=== PATIENT | female | born 1945 | race Caucasian/White ===

== ENCOUNTER 2019-08-04 09:57 | Outpatient (RCR) | payer MEDICARE, SELFPAY ==
--- NOTE | 2019-08-04 10:44 | PTOPEVAL ---
Thank you for referring Sharon Gomes to [facility]. Please review, sign, date and return this plan of care ANEL. I agree with and certify that the following plan of care is medically necessary. Referring Physician Date Admitting Provider: Attending Provider: DENNISE Bingham Referring Provider: KATLIN Outpatient Evaluation Start: 08/04/19 09:55 Freq: Status: Active Protocol: Document 08/04/19 10:00 CHUY (Rec: 08/04/19 10:37 [facility] [id number]) Therapy Assessment Status Assessment Status Assessment Status Evaluation Outpatient Past Medical History Past Medical History Source of Past Medical History Patient Other Source of Past Medical History see patient intake form Evaluation Information Problem Diagnosis L trochanteric bursitis Onset 08/03/19 Subjective Information patient reports she has been Query Text:As Reported By Patient/ having bursitis in the L thigh Family for months. she reports she recently rl to the MD and had a cortizone injection and is feeling much better now. she reports she slept good last night. she reports she does a home exercise tape 3x a week. she reports she is hear to be shown a home exercise program. Prior Level of Function Comments Additional Prior Level of Function patient reports she has no Comments pain today. prior to her injection, she was having 8/10 pain that was increased with resting at the end of the day. she reports she also was having increased pain with sitting for extended periods of time. Pain Assessment Timing of Pain Assessment Timing of Pain Assessment Assessment Pain Scale Pain Scale Used Numeric (1 - 10) Self Report Pain Assessment Left Lateral Hip(s) Reported Pain Level 0 Greatest Pain Intensity 10 Pain Score Pain Score 0: Self Report Additional Pain Score Comments no pain since injection yesterday. Lower Extremity Range of Motion Hip Range of Motion Bilateral Hip Flexion Range of Motion - Active 120 Hip Extension Range of Motion - Active 15 Hip Medial Rotation - Active 35 Hip Lateral Rotation - Active 45 Lower Extremity Muscle Strength Testing Hip Strength Bilateral Hip Flexion Strength 4+ Good + Hip Extension Strength 4 Good Hip Abduction Strength
== END 2019-08-04 10:54 | disposition home or self-care (01) ==
LOC: CHSPT 09:57
PROVIDERS: PCP Internal Medicine; Visit Provider Physician Assistant Surgical
DX: M70.62 Trochanteric bursitis, left hip (principal)
CPT/HCPCS: 97110; 97161

== ENCOUNTER 2019-10-20 08:15 | Outpatient (CLI) | payer MEDICARE, SELFPAY ==
--- NOTE | ~2019-10-20 | DEXA_ITS ---
BMD(1) Young-Adult(2) Age-Matched(3) Region (g/cm2) T-score Z-score WHO Classification L1 0.887 -2.1 -0.4 Osteopenia L2 0.911 -2.5 -0.8 Osteoporosis L3 0.937 -2.2 -0.6 Osteopenia L4 1.079 -1.1 0.6 Osteopenia L1-L4 0.963 -1.9 -0.2 Osteopenia Trend: L1-L4 Change vs Change vs Measured Age BMD(1) Baseline Previous Date (years) (g/cm2) (%) (%) 10/20/2019 [age] 0.963 baseline - 1 - Statistically 68% of repeat scans fall within 1SD (+- 0.010 g/cm2 for AP Spine L1-L4) 2 - [place] (Combined NHANES (ages 20-30) / OB10 (ages 20-40)) AP Spine Reference Population (v112) 3 - Matched for Age, Weight (females 25-100 kg), Ethnic 11 - World Health Organization - Definition of Osteoporosis and Osteopenia for Women: Normal = T-score at or above -1.0 SD; Osteopenia = T-score between -1.0 and -2.5 SD; Osteoporosis = T-score at or below -2.5 SD; (WHO definitions only apply when a young healthy Women reference database is used to determine T-scores.) Printed: 10/20/2019 8:59:44 AM (13.60)76:3.00:50.00:12.0 0.00:10.50 0.60x1.05 21.3:%Fat=28.3% 0.00:0.00 0.00:0.00 Filename: [id number] Scan Mode: Standard;OneScan 37.0 OY LX Therapies [id number] BMD(1) Young-Adult(2,7) Age-Matched(3) Region (g/cm2) T-score Z-score WHO Classification Neck Left 0.710 -2.4 -0.6 Osteopenia Right 0.711 -2.3 -0.6 Osteopenia Mean 0.710 -2.4 -0.6 Osteopenia Difference 0.002 0.0 0.0 - Total Left 0.689 -2.5 -1.0 Osteoporosis Right 0.646 -2.9 -1.3 Osteoporosis Mean 0.667 -2.7 -1.2 Osteoporosis Difference 0.042 0.3 0.3 - Hip [place] Length Comparison (mm) (Right = 109.7 mm) (Mean = 104.2 mm) (Left = 108.2 mm) Trend: Total Mean Change vs Change vs Measured Age BMD(1) Baseline Previous Date (years) (g/cm2) (%) (%) 10/20/2019 74.0 0.667 baseline - 1 - Statistically 68% of repeat scans fall within 1SD (+- 0.010 g/cm2 for DualFemur Total) 2 - [place] (Combined NHANES (ages 20-30) / OB10 (ages 20-40)) Femur Reference Population (v112) 3 - Matched for Age, Weight (females 25-100 kg), Ethnic 7 - DualFemur Total T-score difference is 0.3. Asymmetry is None. 11 - World Health Organization - Definition of Osteoporosis and Osteopenia for Women: Normal = T-score at or above -1.0 SD; Osteopenia = T-score between -1.0 and -2.5 SD; Osteoporosis = T-score at or below -2.5 SD; (WHO definitions only apply when a young healthy Women reference database is used to determine T-scores.) Printed: 10/20/2019 8:59:44 AM (13.60); Filename: [id number]; Right Femur; 18.1:%Fat=33.8%; Neck Angle (deg)= 62; Scan Mode: Standard 37.0 uGy; Left Femur; 18.5:%Fat=31.5%; Neck Angle (deg)= 69; Scan Mode: Standard 37.0 uGy Squirro [id number] Dear Cha Leon, Your patient Sharon Gomes completed a BMD test on 10/20/2019 using the Squirro DXA System (analysis version: 13.60) manufactured by [employer]. The following summarizes the results of our evaluation. PATIENT BIOGRAPHICAL: Name: Sharon Gomes Date: 1945 Height: 63.0 in. Gender: Female Exam Date: 10/20/2019 Weight: 145.0 lbs. [employer]
--- NOTE | ~2019-10-20 | US_ITS ---
EXAMINATION: US carotid duplex BI DATE: 10/20/2019 09:37 INDICATION: Bilateral carotid bruit TECHNIQUE: Grayscale, color Doppler, and pulsed Doppler images of the cervical carotid arteries were obtained. The degree of vessel stenosis is placed in one of the following categories: normal, <50%, 5 0-69%, >=70% but less than near-occlusion, near-occlusion, or total occlusion. Note that percent sten osis relative to normal distal artery lumen diameter is indirectly measured from velocity measurement s as described by John, et al. Radiology 2003; 229:340-346. Notes: Normal: Peak systolic velocity <125 centimeters/sec and no plaque <50%. Peak systolic velocity <125 ( EDV <40; ICA/CCA PSV ratio <2.0; used these factors only a tandem lesions or low cardiac output or co ntralateral disease) 50-69 %: PSV 125-230 (EDV 40-100; ratio 2-4) >= 70% but less than near occlusion: PSV greater than 230 (EDV > 100; ratio> 4.0) Near Occlusion: PSV that is variable; markedly narrowed lumen Occlusion: Absent flow on color/spectral Doppler and no lumen on bustamante scale. COMPARISON: None. FINDINGS: RIGHT: The right common carotid artery (CCA) peak systolic velocity (PSV) is 79 cm/s. The right internal car otid artery (ICA) PSV is 85 cm/s. The right ICA end-diastolic velocity (EDV) is 31 cm/s. The right IC A/CCA PSV ratio is 1.1. The external carotid artery (ECA) PSV is 86 cm/s. There is antegrade flow in the right vertebral artery. LEFT: The left CCA PSV is 102 cm/s. The left ICA PSV is 82 cm/s. The left ICA EDV is 31 cm/s. The left ICA/ CCA PSV ratio is 0.8. The ECA PSV is 64 cm/s. There is antegrade flow in the left vertebral artery. IMPRESSION: 1. Less than 50% stenosis in the right internal carotid artery by sonographic criteria. 2. Less than 50% stenosis in the left internal carotid artery by sonographic criteria. Reviewed, dictated and finalized at location A. IMPRESSION: 1. Less than 50% stenosis in the right internal carotid artery by sonographic sarah schofield. 2. Less than 50% stenosis in the left internal carotid artery by sonographic bianca gomes.
== END 2019-10-20 08:16 | disposition home or self-care (01) ==
PROVIDERS: PCP Internal Medicine; Visit Provider Internal Medicine
DX: R09.89 Other specified symptoms and signs involving the circulatory and respiratory systems (principal); M81.0 Age-related osteoporosis without current pathological fracture
CPT/HCPCS: 77080; 93880

== ENCOUNTER → 2019-12-15 07:28 | Outpatient (CLI) | payer MEDICARE, SELFPAY ==
--- NOTE | ~2019-12-15 | MM_ITS ---
EXAMINATION: MM screening [facility] BI w sydni HISTORY: Screening mammogram TECHNIQUE: Craniocaudal and mediolateral oblique 3-D tomosynthesis images were obtained and synthetic 2-D images were generated. CAD analysis was submitted and interpreted. COMPARISON: 09/21/2018, 09/10/2017, 09/08/2016 BREAST PARENCHYMAL COMPOSITION: There are scattered areas of fibroglandular density. FINDINGS: Stable focal asymmetry is again noted in the upper outer quadrant of the right breast. Ther e is no evidence of suspicious mass, calcification, or architectural distortion to suggest malignancy in either breast. There has been no suspicious interval change. IMPRESSION: 1. No mammographic evidence of malignancy. 2. Recommend routine screening mammography in one year. BI-RADS Category 2: Benign finding(s). Reviewed, dictated and finalized at location A.
== END ==
PROVIDERS: Visit Provider Internal Medicine
DX: Z12.31 Encounter for screening mammogram for malignant neoplasm of breast (principal)
CPT/HCPCS: 77063; 77067

== ENCOUNTER 2019-12-27 14:50 | Outpatient (CLI) | payer MEDICARE, SELFPAY ==
--- NOTE | ~2019-12-27 | XR_ITS ---
XR ankle RT min 3V DATE: 12/27/2019 15:16 INDICATION: Right ankle pain, arthritis, effusion TECHNIQUE: 4 views COMPARISON: None FINDINGS: Osteopenia. No fracture or dislocation of the ankle or disruption of the ankle mortise. No periosteal reaction or bone destruction. Mild plantar and posterior calcaneal enthesopathy. IMPRESSION: Osteopenia LAD there and posterior calcaneal enthesopathy Reviewed, dictated and finalized at location A.
== END 2019-12-27 14:51 | disposition home or self-care (01) ==
LOC: CHSIMG 14:53
PROVIDERS: PCP Internal Medicine; Visit Provider Internal Medicine
DX: M13.871 Other specified arthritis, right ankle and foot (principal); M25.471 Effusion, right ankle
CPT/HCPCS: 73610

== ENCOUNTER 2020-03-07 09:00 | Outpatient (RCR) | payer MEDICARE, SELFPAY ==
--- NOTE | 2020-03-07 13:02 | OTOPEVAL ---
Thank you for referring Sharon Gomes to [facility].? The patient is scheduled to be seen for therapy? ____x/week for ___ weeks. Please review, sign, date and return this plan of care ANEL. I agree with and certify that the following plan of care is medically necessary. Referring Physician Date Admitting Provider: Attending Provider: Eduardo Borden, Referring Provider: *OT Outpatient Evaluation Start: 03/07/20 08:47 Freq: Status: Active Protocol: Document 03/07/20 08:[address] [facility] (Rec: 03/07/20 10:[address] [facility] [id number]) Therapy Assessment Status Assessment Status Assessment Status Evaluation Outpatient Past Medical History Musculoskeletal History Hx Arthritis Yes Evaluation Information Problem Diagnosis L hand pain Onset 01/19/20 Cause carpal tunnel Subjective Information Patient reports pain in the Query Text:As Reported By Patient/ left hand as well as numbness Family and tingling in the left hand, specifically in the thumb, index and middle fingers. Patient received a wrist cock- up splint yesterday and used it last night in which she reports improvement. She also received a cortisone shot yesterday. Patient reports that her three fingers start to tingle when she is curling her hair, talking on the phone , driving, blow drying hair, and especially in the middle of the night. Prior Level of Function Activity Level (Last 3 Months) Hand Dominance Right Activity of Daily Living Ability Independent Indoor/Home Mobility Independent Community Mobility Independent Stairs Ability Independent Functional Cognition (Planning, Shopping Independent , Taking Medications) Cooking Yes Cleaning Yes Laundry Yes Shopping Yes Driving Yes Home Setting Home Type House Living Situation With Spouse Mobility Assistive Devices (Used Last 3 None Months) Pain Assessment Timing of Pain Assessment Timing of Pain Assessment Assessment Pain Scale Pain Scale Used Numeric (1 - 10) Self Report Pain Assessment Left Hand(s) Reported Pain Level 6 Pain Description
== END 2020-03-09 09:48 | disposition home or self-care (01) ==
LOC: CHSOT 09:00
PROVIDERS: PCP Internal Medicine; Visit Provider Orthopaedic Surgery Hand Surgery
DX: M79.642 Pain in left hand (principal)
CPT/HCPCS: 97110; 97165

== ENCOUNTER → 2020-12-31 11:13 | Outpatient (CLI) | payer MEDICARE, SELFPAY ==
--- NOTE | ~2020-12-31 | MM_ITS ---
EXAMINATION: MM screening [facility] BI w sydni HISTORY: Screening TECHNIQUE: Craniocaudal and mediolateral oblique 3-D tomosynthesis images were obtained and synthetic 2-D images were generated. CAD analysis was submitted and interpreted. COMPARISON: Comparison to multiple prior studies sequentially, with oldest reviewed study dated 09/04. BREAST PARENCHYMAL COMPOSITION: There are scattered areas of fibroglandular density. FINDINGS: There is no evidence of suspicious mass, calcification, or architectural distortion to sugg est malignancy in either breast. There has been no suspicious interval change. IMPRESSION: 1. No mammographic evidence of malignancy. 2. Recommend routine screening mammography in one year. BI-RADS Category 1: Negative Reviewed, dictated and finalized at location A.
== END ==
PROVIDERS: PCP Internal Medicine; Visit Provider Nurse Practitioner Women's Health
DX: Z12.31 Encounter for screening mammogram for malignant neoplasm of breast (principal)
CPT/HCPCS: 77063; 77067

== ENCOUNTER 2021-03-06 13:48 | Outpatient (CLI) | payer MEDICARE, SELFPAY ==
[2021-03-06 14:46] LABS: SARS-CoV-2 RNA PCR Negative (Negative)
== END 2021-03-06 13:49 | disposition home or self-care (01) ==
LOC: CHSLAB 13:52
PROVIDERS: PCP Internal Medicine; Visit Provider Internal Medicine
DX: J00 Acute nasopharyngitis [common cold] (principal); Z20.822 Contact with and (suspected) exposure to COVID-19
CPT/HCPCS: C9803; U0003; U0005

== ENCOUNTER 2021-03-18 14:02 | Outpatient (CLI) | payer MEDICARE, SELFPAY ==
--- NOTE | ~2021-03-18 | XR_ITS ---
EXAMINATION: XR chest 2V DATE: 03/18/2021 14:33 INDICATION: Cough and wheezing TECHNIQUE: PA and lateral views of the chest were obtained. COMPARISON: Chest radiograph dated 02/13/2015 FINDINGS: Mild biapical pleural-parenchymal scarring. Unchanged small bulge along the posterior left hemidiaphr agm most likely either eventration or small Bochdalek hernia. Lungs otherwise clear with no other air space opacities, pulmonary edema, pleural effusion or pneumothorax. The cardiomediastinal silhouette is normal. Moderate thoracic spondylosis. IMPRESSION: 1. No acute cardiopulmonary disease. Reviewed, dictated and finalized at location A. 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
== END 2021-03-18 14:03 | disposition home or self-care (01) ==
LOC: CHSIMG 14:06
PROVIDERS: PCP Internal Medicine; Visit Provider Internal Medicine
DX: R05.9 Cough, unspecified (principal); R06.2 Wheezing
CPT/HCPCS: 71046

== ENCOUNTER 2021-04-18 10:06 | Outpatient (CLI) | payer MEDICARE, SELFPAY ==
[2021-04-18 12:18] LABS: SARS-CoV-2 RNA PCR Negative (Negative)
== END 2021-04-18 10:07 | disposition home or self-care (01) ==
PROVIDERS: PCP Internal Medicine; Visit Provider Internal Medicine
DX: Z20.822 Contact with and (suspected) exposure to COVID-19 (principal)
CPT/HCPCS: C9803; U0003; U0005

== ENCOUNTER 2021-10-14 16:10 | Outpatient (CLI) | payer MEDICARE, OTHER, SELFPAY ==
--- NOTE | ~2021-10-14 | XR_ITS ---
XR sacrum coccyx min 2V DATE: 10/14/2021 17:26 INDICATION: Fall. Lower back and coccygeal pain TECHNIQUE: AP, angled AP and lateral views COMPARISON: 10/07/2018 sacroiliac joints FINDINGS: There is osteopenia. No fracture or bone destruction of the sacrum or coccyx is evident. Normal alignment at the pubic sym physis and sacral iliac joints. Severe degenerative disc disease of the lumbar spine. IMPRESSION: No sacral or coccygeal fracture is detected Osteopenia Reviewed, dictated and finalized at location B.
--- NOTE | ~2021-10-14 | XR_ITS ---
XR lumbar spine 2-3V DATE: 10/14/2021 17:23 INDICATION: Fall. Lower back pain, especially coccyx area. TECHNIQUE: AP, lateral, coned lateral lumbosacral views COMPARISON: 10/07/2018 lumbar spine FINDINGS: There is osteopenia. There is mild thoracolumbar dextroscoliosis. There is degenerative spurring of the lower thoracic spine. There is moderately severe to severe degenerative degenerative disc disease throughout the lumbar and lumbosacral spine. No lumbar spine fracture or bone destruction is evident. The lumbar pedicles are intact. The sacroiliac joints are intact. IMPRESSION: Osteopenia Dextro scoliosis of thoracolumbar spine Moderately severe to severe degenerative disc disease No fracture Reviewed, dictated and finalized at location B.
== END 2021-10-14 16:11 | disposition home or self-care (01) ==
LOC: CHSIMG 16:12
PROVIDERS: PCP Internal Medicine; Visit Provider Internal Medicine
DX: S39.92XA Unspecified injury of lower back, initial encounter (principal)
CPT/HCPCS: 72100; 72220

== ENCOUNTER 2021-10-30 14:04 | Emergency (ER) | payer MEDICARE, OTHER, SELFPAY ==
--- NOTE | ~2021-10-30 | XR_ITS ---
EXAMINATION: XR chest 1V portable 10/30/2021 14:55 INDICATION: Cough, fever and shortness of breath. PROCEDURE: AP portable chest COMPARISON: 03/18/2021 FINDINGS: The lungs are clear. The cardiomediastinal silhouette is within normal limits. There are no pleural effusions. There is no pneumothorax suspected. IMPRESSION: 1: NO ACUTE CARDIOPULMONARY DISEASE. Reviewed, dictated and finalized at location A.
--- NOTE | 2021-10-30 14:22 | ED.NAVMDI ---
HPI - Nausea/Vomiting/Diarrhea General Chief complaint: Nausea/Vomiting/Diarrhea Stated complaint: headache,nausea,chills,fever Time Seen by Provider: 10/30/21 14:22 Source: patient History of Present Illness HPI Narrative: patient tested positive for COVID yesterday. She presents to the ER with -- nausea without any vomiting -- body ache -- fever the patient is COVID vaccinated and in addition received a booster dose MD elicited complaint: nausea Onset (ago): day(s) ( started yesterday) Associated nausea: Yes Exacerbating factors: none Relieving factors: none Related Data Home Medications Medication Instructions Recorded Confirmed pravastatin 10 mg tablet 1 tablet PO DAILY 10/30/21 10/30/21 Review of Systems Review of Systems: All systems reviewed & are unremarkable except as noted in HPI and below Constitutional: Constitutional: Reports as per HPI and Reports no additional constitutional complaints Eyes: Eyes: Reports as per HPI and Reports no additional eye complaints ENT: Reports system reviewed and no additional complaints, except as documented and Reports as per HPI Cardiovascular: Cardiovascular: Reports as per HPI and Reports no additional cardiovascular complaints Respiratory: Respiratory: Reports as per HPI and Reports no additional respiratory complaints Gastrointestinal: Gastrointestinal: Reports as per HPI, Reports no additional gastrointestinal complaints and Reports nausea Genitourinary: Genitourinary: Reports no additional female genitourinary complaints and Reports as per HPI Musculoskeletal: Musculoskeletal: Reports no additional musculoskeletal complaints and Reports as per HPI Integumentary/Breasts: Skin/Breast: Reports system reviewed and no additional complaints, except as docu and Reports as per HPI Neurologic: Reports system reviewed and no additional complaints, except as documented and Reports as per HPI Psychiatric: Psychiatric: Reports no additional psychiatric complaints and Reports as per HPI Endocrine: Endocrine: Reports no additional endocrine complaints and Reports as per HPI Hematologic/Lymphatic: Hematologic/Lymphatic: Reports no additional hematologic/lymphatic complaints and Reports as per HPI Allergic/Immunologic: Allergic/Immunologic: Reports no additional allergic/immunologic complaints and Reports as per HPI Exam Const: General: healthy appearing and no acute distress Orientation/consciousness: patient oriented x3 Limitations: no limitations HENMT: Head: normal to inspection Ears: external ears normal General nose exam: Normal external nose present Face and sinus: normal facial exam Mouth: Yes Normal oral and palatal mucosa present Teeth and gingiva: dentition normal Throat: posterior oropharynx normal Eyes: Conjunctivae: conjunctivae normal Cornea: corneas normal Pupils: Equal, round and reactive pupils present EOM: EOMs intact bilaterally Neck: Neck: normal visual inspection Chest: Chest palpation & inspection: normal inspection of the chest Resp: Effort & Inspection: normal respiratory effort Auscultation: clear to auscultation bilaterally Cardio: Rate: regular rate Rhythm: regular rhythm GI: GI Palp: Yes Soft to palpation Auscultation: normal bowel sounds : General: Yes no CVA tenderness Back/Spine/Pelvis: Back: no CVA tenderness Skin: General skin exam: normal color Rashes: no rashes Wounds: no wounds Neuro: General: patient oriented x3, moves all extremities, no meningeal signs, no focal motor deficits and CN's II-XI intact bilaterally Speech: normal speech Gait exam (Neuro): Normal gait present Extrem: General: normal to inspection and no clubbing, cyanosis or edema Psych: Mental Status: mental status grossly normal Affect: normal affect Attitude: cooperative Course Course Emergency Course: patient tested positive for COVID. In view of her age would give her Paxlovid Vital Signs Vital signs: Vital Signs Temperat
[2021-10-30 14:33] VITALS: BP 123/84; PULSE 81; RESP 20; TEMP 36.4; O2SAT 97
[2021-10-30 15:02] LABS: Basophils Absolute Auto 0.04 K/mm3 (0.00-0.10); Basophils Percent Auto 0.7 % (0.0-1.0); Eosinophils Absolute Auto 0.03 K/mm3 (0.02-0.50); Eosinophils Percent Auto 0.5 % (1.0-6.0); Hematocrit 39.2 % (35.0-42.0); Hemoglobin 12.3 g/dL (11.7-13.8); Immature Granulocyte Absolute 0.02 K/mm3 (0.00-0.00); Immature Granulocyte Percent A 0.3 % (0.0-0.0); Mean Corpuscular HGB Conc 31.4 g/dL (32.0-36.0); Mean Corpuscular Hemoglobin 25.5 pg (27.0-31.0); Mean Corpuscular Volume 81.3 fL (78.0-102.0); Mean Platelet Volume 9.4 fl (9.2-11.8); Monocytes Percent Auto 13.7 % (2.0-11.0); Neutrophils Absolute Auto 4.3 K/mm3 (1.7-7.2); Neutrophils Percent Auto 72.8 % (50.0-70.0); Platelet Count Result 195 K/mm3 (150-420); Red Blood Count 4.82 M/mm3 (4.20-5.40); Red Cell Distribution Width 14.3 % (11.6-14.4); White Blood Count 5.8 K/mm3 (4.8-10.8)
[2021-10-30 15:14] LABS: INR 1.1; Prothrombin Time 11.6 Seconds (9.50-12.10)
[2021-10-30 15:17] LABS: Alanine Aminotransferase 21 U/L (14-59); Albumin Level 3.3 g/dL (3.4-5.0); Alkaline Phosphatase 128 U/L (46-116); Anion Gap 9 mmol/L (8-16); Aspartate Amino Transferase 16 U/L (15-37); Bilirubin,Total 0.3 mg/dL (0.00-1.00); Blood Urea Nitrogen 14 mg/dL (7-18); Calcium 9.1 mg/dL (8.5-10.1); Carbon Dioxide 24 mmol/L (21-32); Chloride 105 mmol/L (98-108); Estimated CRCL calculation 39 ml/min; Estimated Glomerular Filt Rate 60; Glucose 111 mg/dL (70-99); Osmolality Calculated 287 mOsm/kg (285-295); Potassium 3.8 mmol/L (3.5-5.1); Sodium 138 mmol/L (136-145)
[2021-10-30 15:21] LABS: SARS-CoV-2 RNA PCR Positive (Negative)
[2021-10-30 15:23] LABS: Lactic Acid Reflex < 0.3 mmol/L (0.4-2.0)
[2021-10-30 15:33] LABS: Lipase 44 U/L (73-393); Troponin I 10.9 ng/L (0.00-60.4)
[2021-10-30 16:05] VITALS: BP 125/98; PULSE 80; RESP 20; TEMP 36.7; O2SAT 99
== END 2021-10-30 16:05 | disposition home or self-care (01) ==
PROVIDERS: Emergency Provider Internal Medicine Critical Care Medicine; PCP Internal Medicine
DX: U07.1 COVID-19 (principal)
CPT/HCPCS: 36415; 71045; 80053; 83605; 83690; 84484; 85025; 85610; 99284; C9803; U0003; U0005

== ENCOUNTER 2021-12-13 12:06 | Emergency (ER) | payer MEDICARE, OTHER, SELFPAY ==
--- NOTE | ~2021-12-13 | CT_ITS ---
EXAMINATION: CTA chest PE protocol DATE: 12/13/2021 13:12 INDICATION: Chest pain TECHNIQUE: Computed tomography angiography (CTA) of the chest was performed with 100 mL Omnipaque-350 intravenous contrast timed to evaluate the pulmonary arteries. Coronal maximum intensity projection 3D-reconstructions were created by the technologist. The dose-length product (DLP) was 206.85 mGy-cm. Automated exposure control and iterative reconstruction technique were employed. COMPARISON: None. FINDINGS: The pulmonary arteries are well-opacified. No pulmonary embolism is identified. There are dependent airspace opacities of the lower lobes. No pleural effusion or pneumothorax. There is a 2 mm nodule of the right lung apex. No pathologically enlarged thoracic lymph nodes are identified. The h eart size is normal. Calcified coronary artery atherosclerosis is noted. There is severe thoracic spo ndylosis. IMPRESSION: 1. No pulmonary embolus identified. 2. Dependent airspace opacities of the lower lobes, likely atelectasis. Reviewed, dictated and finalized at location B.
--- NOTE | ~2021-12-13 | XR_ITS ---
EXAMINATION: XR chest 2V DATE: 12/13/2021 12:26 INDICATION: Central chest pain. TECHNIQUE: Frontal and lateral views of the chest were obtained. COMPARISON: Chest single view 10/30/21, 03/18/21 FINDINGS: There is mild scarring at the lung apices. There is chronic blunting of left posterior cost ophrenic angle. No pleural effusion or pneumothorax. The heart size is normal. IMPRESSION: 1. Stable mild scarring at the lung apices. 2. Chronic blunting of left posterior costophrenic angle, consistent with scarring versus tiny pleura l effusion. Reviewed, dictated and finalized at location A. IMPRESSION: 1. Stable mild scarring at the lung apices. 2. Chronic blunting of left posterior costophrenic angle, consistent with scarr ing versus tiny pleural effusion.
[2021-12-13 12:06] VITALS: BP 174/109; PULSE 91; PULSE 94; RESP 18; TEMP 36.4; O2SAT 98
--- NOTE | 2021-12-13 12:10 | ED.CHESTPAIN ---
HPI - Chest Pain General Chief Complaint: Chest Pain Stated Complaint: CHEST PAIN FOR 2 DAYS Time Seen by Provider: 12/13/21 12:09 Source: patient and RN notes reviewed Mode of arrival: ambulatory Limitations: no limitations History of Present Illness MD complaint: chest discomfort Onset (ago): day(s) (2) Timing of current episode: constant Prior episodes: No Onset: during rest Pain location: substernal Pain radiation: left arm and back Severity: mild Quality: burning Relieving factors: nothing Exacerbating factors: nothing Associated symptoms: other (None) Risk Factors Coronary artery disease risk factors: hyperlipidemia Thoracic aortic dissection risk factors: none Related Data Home Medications Medication Instructions Recorded Confirmed pravastatin 10 mg tablet 1 tablet PO DAILY 10/30/21 12/13/21 omeprazole 40 mg BYMOUTH DAILY 12/13/21 12/13/21 Allergies Allergy/AdvReac Type Severity Reaction Status Date / Time ciprofloxacin [From Cipro] Allergy Unknown Verified 12/13/21 12:35 clarithromycin [From Biaxin] Allergy Unknown Verified 12/13/21 12:35 cyclobenzaprine Allergy Unknown Verified 12/13/21 12:35 [From Flexeril] dexamethasone Allergy Unknown Verified 12/13/21 12:35 levofloxacin [From Levaquin] Allergy Unknown Verified 12/13/21 12:35 naproxen [From Aleve] Allergy Unknown Verified 12/13/21 12:35 Penicillins Allergy Unknown Verified 12/13/21 12:35 ropinirole Allergy Unknown Verified 12/13/21 12:35 sulfamethoxazole Allergy Unknown Verified 12/13/21 12:35 [From Bactrim] trimethoprim [From Bactrim] Allergy Unknown Verified 12/13/21 12:35 Review of Systems Review of Systems: All systems reviewed & are unremarkable except as noted in HPI and below Constitutional: Constitutional: Denies excessive sweating Respiratory: Respiratory: Denies dyspnea Gastrointestinal: Gastrointestinal: Denies diarrhea and Denies vomiting Exam Const: General: healthy appearing, no acute distress and alert Nutritional Appearance: well nourished Orientation/consciousness: patient oriented x3 Limitations: no limitations HENMT: Head: normal to inspection Ears: external ears normal Face and sinus: normal facial exam Mouth: Yes moist mucous membranes Eyes: Conjunctivae: conjunctivae normal Pupils: Equal, round and reactive pupils present EOM: EOMs intact bilaterally Neck: Neck: normal visual inspection Chest: Chest palpation & inspection: normal inspection of the chest and no tenderness Resp: Effort & Inspection: normal respiratory effort Auscultation: clear to auscultation bilaterally Cardio: Rate: regular rate Rhythm: regular rhythm Heart sounds: no murmurs GI: GI Palp: Yes Soft to palpation and No Tenderness to palpation present (GI) Auscultation: normal bowel sounds Back/Spine/Pelvis: Cervical Spine: cervical ROM normal Thoracic/Lumbar Spine: thoraco-lumbar ROM normal Skin: General skin exam: normal color Rashes: no rashes Neuro: General: patient oriented x3, moves all extremities, no focal motor deficits and CN's II-XI intact bilaterally Speech: normal speech Gait exam (Neuro): Normal gait present Extrem: General: normal to inspection and no clubbing, cyanosis or edema Psych: Mental Status: mental status grossly normal Affect: normal affect Attitude: cooperative Course Course Emergency Course: I discussed the case with JERMAINE Laughlin hospitalist at [facility] who agreed for patient to be admitted for further evaluation at [place]. Vital Signs Vital signs: Vital Signs Temperature 36.4 C 12/13/21 12:06 Pulse Rate 94 12/13/21 12:06 Respiratory Rate 18 12/13/21 12:06 Blood Pressure 174/109 H 12/13/21 12:06 Pulse Oximetry 98 12/13/21 12:06 Oxygen Delivery Room Air 12/13/21 12:06 Temperature 36.4 C 12/13/21 14:34 Pulse Rate 76 12/13/21 14:34 Respiratory Rate 18 12/13/21 14:34 Blood Pressure 158/82 H 12/13/21 14:34 Pulse Oximetry 97 12/13/21 14:
--- NOTE | 2021-12-13 12:13 | ECG_ITS ---
Measurements Intervals [place] Rate: 78 P: 62 WV: 156 QRS: 32 QRSD: 81 T: 44 QT: 392 QTc: 447 Interpretive Statements SINUS RHYTHM NORMAL ELECTROCARDIOGRAM NO PREVIOUS ECG AVAILABLE FOR COMPARISON Electronically Signed On 12-13-2021 12:59:06 CDT by Gurwinder Fisher M.D.
[2021-12-13 12:33] LABS: Basophils Absolute Auto 0.05 K/mm3 (0.00-0.10); Basophils Percent Auto 0.9 % (0.0-1.0); Eosinophils Absolute Auto 0.38 K/mm3 (0.02-0.50); Eosinophils Percent Auto 6.8 % (1.0-6.0); Hematocrit 39.6 % (35.0-42.0); Hemoglobin 12.3 g/dL (11.7-13.8); Immature Granulocyte Absolute 0.02 K/mm3 (0.00-0.00); Immature Granulocyte Percent A 0.4 % (0.0-0.0); Lymphocytes Absolute Auto 1.27 K/mm3 (1.10-4.50); Lymphocytes Percent Auto 22.8 % (18.0-42.0); Mean Corpuscular HGB Conc 31.1 g/dL (32.0-36.0); Mean Corpuscular Hemoglobin 25.6 pg (27.0-31.0); Mean Corpuscular Volume 82.3 fL (78.0-102.0); Mean Platelet Volume 9.3 fl (9.2-11.8); Monocytes Absolute Auto 0.54 K/mm3 (0.10-0.90); Monocytes Percent Auto 9.7 % (2.0-11.0); Neutrophils Absolute Auto 3.3 K/mm3 (1.7-7.2); Neutrophils Percent Auto 59.4 % (50.0-70.0); Platelet Count Result 242 K/mm3 (150-420); Red Blood Count 4.81 M/mm3 (4.20-5.40); Red Cell Distribution Width 14.7 % (11.6-14.4); White Blood Count 5.6 K/mm3 (4.8-10.8)
[2021-12-13] MEDS: ASPIRIN 81 MG CHEWABLE TABLET 324 MG PO (12:39)
[2021-12-13 12:47] LABS: Prothrombin Time 11.2 Seconds (9.50-12.10)
--- NOTE | 2021-12-13 12:50 | PC.NURSE ---
Ddimer 0.6, erp notified.
[2021-12-13 12:51] LABS: Alanine Aminotransferase 23 U/L (14-59); Albumin Level 3.8 g/dL (3.4-5.0); Alkaline Phosphatase 122 U/L (46-116); Anion Gap 5 mmol/L (8-16); Aspartate Amino Transferase 21 U/L (15-37); Bilirubin,Total 0.4 mg/dL (0.00-1.00); Blood Urea Nitrogen 14 mg/dL (7-18); Calcium 9.5 mg/dL (8.5-10.1); Carbon Dioxide 28 mmol/L (21-32); Chloride 105 mmol/L (98-108); Estimated CRCL calculation 42 ml/min; Estimated Glomerular Filt Rate > 60; Glucose 95 mg/dL (70-99); Osmolality Calculated 286 mOsm/kg (285-295); Potassium 3.8 mmol/L (3.5-5.1); Sodium 138 mmol/L (136-145); Total Protein 7.4 g/dL (6.4-8.2); Troponin I 145.8 ng/L (0.00-60.4)
--- NOTE | 2021-12-13 12:51 | PC.NURSE ---
troponin 145.8. erp notified.
[2021-12-13 14:34] VITALS: BP 158/82; PULSE 76; RESP 18; TEMP 36.4; O2SAT 97
== END 2021-12-13 15:50 | disposition short-term general hospital (02) ==
PROVIDERS: Emergency Provider Emergency Medicine; PCP Internal Medicine
DX: R07.89 Other chest pain (principal); R79.9 Abnormal finding of blood chemistry, unspecified
CPT/HCPCS: 36415; 71046; 71275; 80053; 84484; 85025; 85380; 85610; 93005; 99285; A9270; Q9967

== ENCOUNTER 2021-12-13 17:19 | Inpatient (IN) | payer MEDICARE, OTHER, SELFPAY ==
--- NOTE | ~2021-12-13 | US_ITS ---
EXAMINATION: US venous doppler [facility] DATE: 12/14/2021 11:54 INDICATION: Chest pain TECHNIQUE: Jimenez scale images without and with compression and Doppler images of the bilateral lower e xtremity veins were obtained. COMPARISON: None FINDINGS: The right common femoral vein, profunda femoral vein, femoral vein, popliteal vein, peroneal trunk, p osterior tibial veins, and greater saphenous vein are patent. There is a 5.3 cm cyst of the right pop liteal fossa. The left common femoral vein, profunda femoral vein, femoral vein, popliteal vein, peroneal trunk, po sterior tibial veins, and greater saphenous vein are patent. IMPRESSION: 1. Patent bilateral lower extremity veins. No evidence of deep venous thrombosis. Reviewed, dictated and finalized at location A. IMPRESSION: 1. Patent bilateral lower extremity veins. No evidence of deep venous thrombosi s.
--- NOTE | 2021-12-13 16:35 | ADMGEN ---
This patient, Sharon Gomes, was admitted to IMU Room 204-01. Patient/family oriented to hospital policies and general routines including ID bracelet, bed and alarms, visiting hours, pain management, procedures, bathroom and other care routines, personal items, smoking policy, room service/diet, and visiting hours. Information on how to activate the Rapid Response Team has been discussed. Patient/Family are encouraged to report perceived risks to care and to ask questions if they do not understand what they are told or what they should do.
[2021-12-13 16:38] VITALS: BP 165/73; PULSE 80; RESP 16; TEMP 36.8; O2SAT 98
--- NOTE | 2021-12-13 16:48 | ECG_ITS ---
Measurements Intervals [place] Rate: 73 P: 63 IA: 168 QRS: 23 QRSD: 86 T: 24 QT: 396 QTc: 438 Interpretive Statements SINUS RHYTHM NONSPECIFIC ST ABNORMALITY BORDERLINE ECG Electronically Signed On 12-14-2021 9:58:20 CDT by Jose Spears M.D.
[2021-12-13 16:50] VITALS: BMI 24.6
[2021-12-13 17:13] LABS: Hematocrit 39.6 % (37.0-47.0); Hemoglobin 12.1 g/dL (12.0-15.0); Mean Corpuscular HGB Conc 30.6 g/dl (32-36); Mean Corpuscular Hemoglobin 25.3 pg (26-34); Mean Corpuscular Volume 82.8 fl (80-100); Mean Platelet Volume 9.5 fl (7.4-10.4); Platelet Count Result 234 k/mm3 (150-375); Red Blood Count 4.78 M/mm3 (4.2-5.4); Red Cell Distribution Width 15.2 % (11.5-14.5); White Blood Count 5.4 K/mm3 (4.5-10.0)
[2021-12-13 17:23] LABS: Alanine Aminotransferase 18 U/L (6-35); Alkaline Phosphatase 107 U/L (38-126); Anion Gap 10 mmol/L (8-16); Aspartate Amino Transferase 29 U/L (14-36); Bilirubin,Total 0.4 mg/dL (0.2-1.3); Blood Urea Nitrogen 13 mg/dL (7-17); Calcium 9.4 mg/dL (8.4-10.2); Carbon Dioxide 26 mmol/L (22-30); Chloride 103 mmol/L (98-107); Estimated CRCL calculation 44 ml/min; Estimated Glomerular Filt Rate > 60; Glucose 123 mg/dL (65-110); Magnesium 2.1 mg/dL (1.6-2.3); Phosphorus 3.5 mg/dL (2.5-4.5); Potassium 3.5 mmol/L (3.4-5.0); Sodium 139 mmol/L (137-145)
--- NOTE | 2021-12-13 17:24 | PM.IMHP ---
H&P: HPI History of Present Illness Date/Time: 12/13/21 17:24 Chief Complaint: chest pain Narrative: This is a 76 year old who has had no previous history of heart disease. The patient went to [facility] today because she was having chest pain on and off for 2 days. It was substernal to left arm and back. She rated it as burning and mild. The patient was given 3 baby aspirin today. Patient's EKG at [place] her heart rate was 78 she was a normal sinus rhythm. Repeat EKG here at the hospital also shows a sinus rhythm with a minimally depression ST. Her D-dimer was mildly elevated at 0.60. [place] troponin was reported as 145.8 per their measures. There normal ranges different from ours. CTA pulmonary at [place] was read as a following 1. No pulmonary embolus identified. 2. Dependent airspace opacities of the lower lobes, likely atelectasis. The patient is being admitted to observation status to IMU on 12/13/2021 date of service. Review of Systems Review of Systems: See HPI All systems reviewed & are unremarkable except as noted in HPI and below Constitutional: Constitutional: Reports as per HPI and Reports no additional constitutional complaints Eyes: Eyes: Reports as per HPI and Reports no additional eye complaints ENT: Reports system reviewed and no additional complaints, except as documented and Reports Normal hearing present Cardiovascular: Cardiovascular: Reports no additional cardiovascular complaints Respiratory: Respiratory: Reports no additional respiratory complaints and Reports no additional respiratory complaints Gastrointestinal: Gastrointestinal: Reports as per HPI and Reports no additional gastrointestinal complaints Musculoskeletal: Musculoskeletal: Reports no additional musculoskeletal complaints Integumentary/Breasts: Skin/Breast: Reports system reviewed and no additional complaints, except as docu and Reports as per HPI Neurologic: Reports system reviewed and no additional complaints, except as documented, Reports as per HPI and Reports Normal hearing present Psychiatric: Psychiatric: Reports no additional psychiatric complaints and Reports as per HPI Endocrine: Endocrine: Reports no additional endocrine complaints Hematologic/Lymphatic: Hematologic/Lymphatic: Reports no additional hematologic/lymphatic complaints Allergic/Immunologic: Allergic/Immunologic: Reports no additional allergic/immunologic complaints [facility] Past Medical History Medical History (Updated 12/13/21 @ 17:35 by Qian Thomas NP) Chronic GERD COVID-19 Surgical History Surgical History (Updated 12/13/21 @ 17:35 by Qian Thomas NP) H/O dilation and curettage History of back surgery Fusion of L4 and 5 History of cataract extraction Family History Family History (Updated 12/13/21 @ 17:36 by Qian Thomas NP) Father Cancer Mother Generalized anxiety disorder Social History Social History (Updated 12/13/21 @ 17:37 by Qian Thomas NP) Social History: The patient lives with her who has dementia. The patient takes care of her . She has 3 children. Her 3 children are the durable power litigation attorney for healthcare. 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 Patient used to smoke over 30 years ago. No alcohol marijuana or illicit drugs. Code status full code Smoking packs per day: 0.5 Smoking cigarettes per day: 10.0 Years smoked: 34 Smoking pack-years: 17.00 Smoking status: Former smoker Alcohol intake: never Substance use: never Spiritual care concerns: No Meds Home Medications and Allergies Home Medications Medication Instructions Recorded Confirmed Type pravastatin 10 mg tablet 1 tablet PO DAILY 10/30/21 12/13/21 History omeprazole 40 mg BYMOUTH DAILY 12/13/21 12/13/21 History Allergies Allergy/AdvReac Type Severity Reaction Status Date / Time ciprofloxacin [From Cipro] Allergy Unknown Verified 12/13/21 12:35 clarithromycin [From Biaxin] Ger
[2021-12-13 17:25] LABS: INR 1.1; Prothrombin Time 13.8 Seconds (11.1-14.7)
[2021-12-13 17:26] LABS: Partial Thromboplastin Time 30.1 SECONDS (22.3-36.8)
[2021-12-13 18:03] LABS: Troponin I 0.055 ng/mL (0.000-0.034)
[2021-12-13 20:00] VITALS: BP 137/74; PULSE 79; PULSE 92; RESP 16; TEMP 36.9; O2SAT 97
[2021-12-13] MEDS: PRAVASTATIN SODIUM 10 MG TABLET PO (20:40)
[2021-12-13 22:00] VITALS: PULSE 73
[2021-12-13 23:42] VITALS: BP 142/75; PULSE 80; RESP 12; TEMP 36.9; O2SAT 98
[2021-12-14] VITALS (14 sets, daily range): BP systolic 125–148; BP diastolic 66–89; PULSE 65–93; RESP 12–16; TEMP 36.4–37; O2SAT 98–100
--- NOTE | 2021-12-14 | ECHO_ITS ---
Patient Info Name: Sharon Zunigabharti Age: 76 years : 1945 Gender: Female Ht: 63 in Wt: 136 lbs BSA: 1.67 m2 HR: 69 bpm BP: 145 / 89 mmHg Heart Rhythm: Sinus Rhythm Exam Date: 12/14/2021 8:11 AM Exam Location: [facility] Patient Status: Inpatient Admit Date: 12/13/2021 Staff Ordering Physician: Qian Thomas NP Pharmaceutical Scientist: Frank Lopez RDCS Attending Provider: Darron Farrell DO Referring Physician: William COTTRELL; Exam Type: CA echo doppler color flow Study Info Indications - elevated troponin Complete two-dimensional, color flow and Doppler transthoracic echocardiogram is performed. Summary 1. Complete two-dimensional, color flow and Doppler transthoracic echocardiogram is performed. 2. Left ventricular chamber dimension is normal. 3. Left ventricular systolic function is normal, estimated at 60-65%. 4. There is mildly increased left ventricular wall thickness. 5. The left ventricular diastolic function is grade I diastolic dysfunction. 6. There is mild aortic valve regurgitation. 7. There is mild mitral valve regurgitation. 8. There is mild tricuspid valve regurgitation. 9. There is mild pulmonic regurgitation. Left Ventricle Left ventricular chamber dimension is normal. Left ventricular systolic function is normal, estimated at 60-65%. There is mildly increased left ventricular wall thickness. The left ventricular diastolic function is grade I diastolic dysfunction. Right Ventricle Right ventricular chamber dimension is normal. Right ventricular systolic function is normal. Left Atria Left atrial chamber dimension is normal. Right Atria Right atrial chamber dimension is normal. Atrial Septum Intact interatrial septum visualized by color flow imaging. Aortic Valve The aortic valve is trileaflet. There is mild aortic valve sclerosis. There is no aortic valve stenosis. There is mild aortic valve regurgitation. Pulmonic Valve The pulmonic valve is normal. There is no pulmonic valve stenosis. There is mild pulmonic regurgitation. Mitral Valve The mitral valve has normal leaflets. There is no mitral valve stenosis. There is mild mitral valve regurgitation. Tricuspid Valve The tricuspid valve leaflets are normal. There is no significant tricuspid valve stenosis. There is mild tricuspid valve regurgitation. Pericardium/Pleural The pericardium appears normal. There is no pericardial effusion. Inferior Vena Cava Normal inferior vena cava with >50% collapse upon inspiration consistent with normal right atrial pressure, 5 mmHg. Aorta The aortic root size at the sinus of Valsalva is normal. Left Ventricular Outflow Tract Name Value Normal LVOT 2D LVOT Diameter 2.0 cm LVOT Doppler LVOT Peak Gradient 3 mmHg LVOT Mean Gradient 2 mmHg LVOT VTI 20 cm LVOT VTI/AV VTI Ratio 0.8 LVOT Stroke Volume 61 ml LVOT CO 4.2 l/min LVOT CI
[2021-12-14 06:54] LABS: Basophils Absolute Auto 0.1 K/mm3 (0.0-0.1); Basophils Percent Auto 1.6 % (0.2-1.2); Eosinophils Absolute Auto 0.5 K/mm3 (0-0.3); Eosinophils Percent Auto 10.1 % (0-4.4); Hemoglobin 12.4 g/dL (12.0-15.0); Immature Granulocyte Absolute 0.02 K/mm3 (0.00-0.031); Immature Granulocyte Percent A 0.4 % (0-0.5); Lymphocytes Absolute Auto 1.21 K/mm3 (0.9-3.2); Lymphocytes Percent Auto 23.9 % (18.3-44.2); Mean Corpuscular HGB Conc 30.2 g/dl (32-36); Mean Corpuscular Hemoglobin 25.3 pg (26-34); Mean Corpuscular Volume 83.5 fl (80-100); Mean Platelet Volume 9.4 fl (7.4-10.4); Monocytes Absolute Auto 0.7 K/mm3 (0.1-0.6); Monocytes Percent Auto 13.4 % (2.6-8.5); Neutrophils Absolute Auto 2.6 K/mm3 (1.3-6.7); Neutrophils Percent Auto 50.6 % (45.5-73.1); Platelet Count Result 212 k/mm3 (150-375); Red Blood Count 4.91 M/mm3 (4.2-5.4); Red Cell Distribution Width 15.2 % (11.5-14.5); White Blood Count 5.1 K/mm3 (4.5-10.0)
[2021-12-14 07:15] LABS: Lactic Acid Reflex 0.7 mmol/L (0.7-2.0)
[2021-12-14 07:16] LABS: Alanine Aminotransferase 15 U/L (6-35); Albumin Level 3.9 g/dL (3.5-5.1); Alkaline Phosphatase 102 U/L (38-126); Anion Gap 7 mmol/L (8-16); Aspartate Amino Transferase 26 U/L (14-36); Bilirubin,Total 0.5 mg/dL (0.2-1.3); Blood Urea Nitrogen 16 mg/dL (7-17); Calcium 9.5 mg/dL (8.4-10.2); Carbon Dioxide 26 mmol/L (22-30); Chloride 103 mmol/L (98-107); Cholesterol 213 mg/dL (0-200); Estimated CRCL calculation 44 ml/min; Estimated Glomerular Filt Rate > 60; Glucose 95 mg/dL (65-110); HDL Direct 93 mg/dL; Lactate Dehydrogenase 182 U/L (120-246); Magnesium 2.2 mg/dL (1.6-2.3); Potassium 4.1 mmol/L (3.4-5.0); Sodium 136 mmol/L (137-145); Triglycerides 70 mg/dL (<150)
[2021-12-14 07:27] LABS: LDL Cholesterol Direct 88 mg/dL
[2021-12-14] MEDS: PANTOPRAZOLE 40 MG TABLET BY MOUTH ×2 (08:52→20:29)
[2021-12-14] MEDS: ENOXAPARIN 40 MG/0.4 ML SYRINGE SUB-Q (08:52)
[2021-12-14 09:32] LABS: Troponin I 0.069 ng/mL (0.000-0.034)
--- NOTE | 2021-12-14 12:49 | PM.IMPN ---
Progress Note: A&P Assessment and Plan (1) Atypical chest pain: Code(s): R07.89 - Other chest pain Status: Inactive Assessment and Plan: -continue to trend troponin -repeat EKG shows sinus rhythm -cardiology consult greatly be appreciated -echo has been ordered for tomorrow -Lexiscan ordered as the patient is not able to do a treadmill stress test due to her arthritis in her knees. (2) Elevated troponin I level: Code(s): R77.8 - Other specified abnormalities of plasma proteins Status: Inactive Assessment and Plan: -patient currently does not have any chest pain. -continue to trend. -cardiology has been consulted -stress test ordered Lexiscan (3) Chronic GERD: Code(s): K21.9 - Gastro-esophageal reflux disease without esophagitis Status: Acute Assessment and Plan: -continue omeprazole (4) Anxiety: Code(s): F41.9 - Anxiety disorder, unspecified Status: Acute Assessment and Plan: -the patient is anxious about leaving her at home with other family members as he has dementia. (5) Dyslipidemia: Code(s): E78.5 - Hyperlipidemia, unspecified Status: Acute Assessment and Plan: -check lipid panel -check liver enzymes -continue pravastatin Subjective Date/time seen: 12/14/21 12:49 No complaints Exam Const: General: cooperative, healthy appearing, comfortable, no acute distress, well developed, alert, awake and Physically active Nutritional Appearance: average body habitus and well nourished Orientation/consciousness: oriented to person, oriented to place, oriented to time and patient oriented x3 Limitations: no limitations HENMT: Head: normal to inspection, No palpable skull fracture present, normocephalic and atraumatic Ears: hearing grossly normal bilaterally, external ears normal and TM's normal bilaterally General nose exam: Normal external nose present and Normal nares present Eyes: General: appearance normal, both eyes and all related structures Alignment and Position: alignment normal Periorbital: periorbital findings normal Eyelids: eyelids normal Sclera: sclerae normal Pupils: Equal, round and reactive pupils present EOM: EOMs intact bilaterally Neck: Neck: normal visual inspection, full ROM, no lymphadenopathy, trachea midline and supple Chest: Chest palpation & inspection: normal inspection of the chest Resp: Effort & Inspection: normal respiratory effort Auscultation: clear to auscultation bilaterally Percussion: percussion normal Cardio: Palpation: normal PMI Rate: regular rate Rhythm: regular rhythm Heart sounds: S1 normal heart sound present and S2 normal heart sound present Peripheral pulses: Peripheral pulses 2+ throughout GI: Inspection: normal to inspection Auscultation: normal bowel sounds Rectal Exam: deferred Back/Spine/Pelvis: Cervical Spine: cervical ROM normal Skin: General skin exam: normal color Lesions: no lesions Rashes: no rashes Trauma: no lacerations or abrasions Wounds: no wounds Hair: normal Nails: normal Neuro: General: oriented to person, oriented to place, oriented to time and patient oriented x3 Cranial nerves: Yes Equal, round and reactive pupils present and Yes Normal hearing present Cognition (Neuro): normal cognition Speech: normal speech Gait exam (Neuro): Normal gait present Motor exam (neuro): 5/5 motor strength present throughout Sensory Exam: normal sensation Extrem: General: normal to inspection Right upper extremity: normal to inspection and shoulder/upper arm Left upper extremity: normal to inspection and shoulder/upper arm Right lower extremity: normal to inspection Left lower extremity: normal to inspection Psych: Appearance: grossly normal Mental Status: mental status grossly normal Speech and movement: Normal speech and movement present Affect: normal affect Attitude: cooperative Thought process: Normal thought process present Insight: Good
--- NOTE | 2021-12-14 15:19 | PM.CNCAR ---
Assessment and Plan Assessment and plan (1) Non-ST elevation myocardial infarction (NSTEMI): Code(s): I21.4 - Non-ST elevation (NSTEMI) myocardial infarction Status: Acute Assessment and Plan: I think that her chest pain is consistent with a non ST-elevation myocardial infarction to improved otherwise. Aspirin 81 mg p.o. daily be initiated. P.r.n. nitroglycerin. Enoxaparin 1 milligram/kilogram subQ q.12 hours. Will start low-dose metoprolol 12.5 mg p.o. b.i.d.. 2D echocardiogram Doppler will be ordered and reviewed. Pravastatin will be continued. She had at muscle aches and issues with other statins. Check lipid panel. Plan for coronary angiogram on Thursday. (2) Chronic GERD: Code(s): K21.9 - Gastro-esophageal reflux disease without esophagitis Status: Acute Assessment and Plan: On PPI (3) Dyslipidemia: Code(s): E78.5 - Hyperlipidemia, unspecified Status: Acute Assessment and Plan: Continue pravastatin (4) Chest pain: Code(s): R07.9 - Chest pain, unspecified Status: Acute Assessment and Plan: Related to ACS until proven otherwise. History of Present Illness History of Present Illness Consult date/time: 12/14/21 15:19 Requesting physician: Qian Garcia NP Consult reason: chest pain Reason For Visit: Chest Pain/Elevated Troponin Narrative: Date of service 12/14/2021 Ordering physician: Qian garcia Reason for consult: Chest pain, elevated troponins History: Patient is a 76-year-old female who has hyperlipidemia. She presented to [place] because of chest pain after talking to Dr. Leon. Patient was doing yd work whenever she developed epigastric and chest burning. Chest burning lasted about hour and improved after she rested. Later that night she had a more intense and severe episode of burning that radiated into the middle of her back. It lasted 1-2 hours. In retrospect, she states that she should have went to the ER that night but did not. She called her primary care provider and went to [place] ER. Troponins were elevated at that time she was transferred to [place] for further workup evaluation treatment. Troponins are minimally elevated and have up trended. She does states that yesterday loss she was doing some errands, she would develop discomfort with physical activity also. She denies associated symptoms of nausea, diaphoresis or shortness of breath. She denies any recent syncope, presyncope, paroxysmal nocturnal dyspnea, orthopnea, edema palpitations. Review of Systems Review of Systems: All systems reviewed & are unremarkable except as noted in HPI and below Constitutional: Constitutional: Denies body ache(s) Eyes: Eyes: Denies blurry vision ENT: Reports Normal hearing present Cardiovascular: Cardiovascular: Reports chest pain Respiratory: Respiratory: Denies chest congestion Gastrointestinal: Gastrointestinal: Denies abdominal pain Genitourinary: Genitourinary: Denies hematuria Musculoskeletal: Musculoskeletal: Denies back pain Integumentary/Breasts: Skin/Breast: Denies dry skin Neurologic: Denies Abnormal speech present Psychiatric: Psychiatric: Denies anxiety Endocrine: Endocrine: Denies excessive sweating Hematologic/Lymphatic: Hematologic/Lymphatic: Denies easy bleeding Allergic/Immunologic: Allergic/Immunologic: Denies GI upset with certain foods PMFSH Past Medical History Medical History (Updated 12/14/21 @ 15:25 by Jose Spears MD) Chest pain Chronic GERD COVID-19 Surgical History Surgical History H/O dilation and curettage History of back surgery Fusion of L4 and 5 History of cataract extraction Family History Family History Father Cancer Mother Generalized anxiety disorder Social History Social History (Reviewed 12/14/21 @ 15:22 by Colten
[2021-12-14] MEDS: ENOXAPARIN 60 MG/0.6 ML SYRINGE SUB-Q (18:21)
[2021-12-14] MEDS: PRAVASTATIN SODIUM 20 MG TABLET 40 MG PO (20:27)
[2021-12-14] MEDS: METOPROLOL TARTRATE 12.5 MG TABLET PO (20:29)
[2021-12-15] VITALS (18 sets, daily range): BP systolic 111–143; BP diastolic 50–82; PULSE 57–82; RESP 16–20; TEMP 36.6–36.9; O2SAT 97–100
[2021-12-15] MEDS: ENOXAPARIN 60 MG/0.6 ML SYRINGE SUB-Q ×2 (05:59→17:04)
[2021-12-15 08:41] LABS: Hematocrit 44.4 % (37.0-47.0); Hemoglobin 13.4 g/dL (12.0-15.0); Mean Corpuscular HGB Conc 30.2 g/dl (32-36); Mean Corpuscular Hemoglobin 25.5 pg (26-34); Mean Corpuscular Volume 84.4 fl (80-100); Mean Platelet Volume 9.3 fl (7.4-10.4); Platelet Count Result 251 k/mm3 (150-375); Red Blood Count 5.26 M/mm3 (4.2-5.4); White Blood Count 5.6 K/mm3 (4.5-10.0)
[2021-12-15 09:00] LABS: Alanine Aminotransferase 16 U/L (6-35); Albumin Level 4.1 g/dL (3.5-5.1); Alkaline Phosphatase 109 U/L (38-126); Anion Gap 8 mmol/L (8-16); Aspartate Amino Transferase 27 U/L (14-36); Bilirubin,Total 0.5 mg/dL (0.2-1.3); Blood Urea Nitrogen 18 mg/dL (7-17); Calcium 9.7 mg/dL (8.4-10.2); Carbon Dioxide 28 mmol/L (22-30); Chloride 103 mmol/L (98-107); Estimated CRCL calculation 44 ml/min; Estimated Glomerular Filt Rate > 60; Glucose 98 mg/dL (65-110); Potassium 4.3 mmol/L (3.4-5.0); Sodium 139 mmol/L (137-145)
[2021-12-15] MEDS: ASPIRIN 81 MG ENTERIC TABLET PO (10:02)
[2021-12-15] MEDS: PANTOPRAZOLE 40 MG TABLET BY MOUTH ×2 (10:02→20:36)
[2021-12-15] MEDS: METOPROLOL TARTRATE 12.5 MG TABLET PO ×2 (10:02→20:36)
--- NOTE | 2021-12-15 10:10 | PM.IMPN ---
Progress Note: A&P Assessment and Plan (1) Atypical chest pain: Code(s): R07.89 - Other chest pain Status: Inactive Assessment and Plan: -repeat EKG shows sinus rhythm -cardiology consult greatly be appreciated Planned heart catheterization per Cardiology (2) Elevated troponin I level: Code(s): R77.8 - Other specified abnormalities of plasma proteins Status: Inactive Assessment and Plan: -patient currently does not have any chest pain. -continue to trend. -cardiology has been consulted Plan for heart catheterization (3) Chronic GERD: Code(s): K21.9 - Gastro-esophageal reflux disease without esophagitis Status: Acute Assessment and Plan: -continue omeprazole (4) Anxiety: Code(s): F41.9 - Anxiety disorder, unspecified Status: Acute Assessment and Plan: -the patient is anxious about leaving her at home with other family members as he has dementia. (5) Dyslipidemia: Code(s): E78.5 - Hyperlipidemia, unspecified Status: Acute Assessment and Plan: -check lipid panel -check liver enzymes -continue pravastatin Subjective Date/time seen: 12/15/21 10:10 No complaints, no chest pain Exam Const: General: cooperative, healthy appearing, comfortable, no acute distress, well developed, alert, awake and Physically active Nutritional Appearance: average body habitus and well nourished Orientation/consciousness: oriented to person, oriented to place, oriented to time and patient oriented x3 Limitations: no limitations HENMT: Head: normal to inspection, No palpable skull fracture present, normocephalic and atraumatic Ears: hearing grossly normal bilaterally, external ears normal and TM's normal bilaterally General nose exam: Normal external nose present and Normal nares present Eyes: General: appearance normal, both eyes and all related structures Alignment and Position: alignment normal Periorbital: periorbital findings normal Eyelids: eyelids normal Sclera: sclerae normal Pupils: Equal, round and reactive pupils present EOM: EOMs intact bilaterally Neck: Neck: normal visual inspection, full ROM, no lymphadenopathy, trachea midline and supple Chest: Chest palpation & inspection: normal inspection of the chest Resp: Effort & Inspection: normal respiratory effort Auscultation: clear to auscultation bilaterally Percussion: percussion normal Cardio: Palpation: normal PMI Rate: regular rate Rhythm: regular rhythm Heart sounds: S1 normal heart sound present and S2 normal heart sound present Peripheral pulses: Peripheral pulses 2+ throughout GI: Inspection: normal to inspection Auscultation: normal bowel sounds Rectal Exam: deferred Back/Spine/Pelvis: Cervical Spine: cervical ROM normal Skin: General skin exam: normal color Lesions: no lesions Rashes: no rashes Trauma: no lacerations or abrasions Wounds: no wounds Hair: normal Nails: normal Neuro: General: oriented to person, oriented to place, oriented to time and patient oriented x3 Cranial nerves: Yes Equal, round and reactive pupils present and Yes Normal hearing present Cognition (Neuro): normal cognition Speech: normal speech Gait exam (Neuro): Normal gait present Motor exam (neuro): 5/5 motor strength present throughout Sensory Exam: normal sensation Extrem: General: normal to inspection Right upper extremity: normal to inspection and shoulder/upper arm Left upper extremity: normal to inspection and shoulder/upper arm Right lower extremity: normal to inspection Left lower extremity: normal to inspection Psych: Appearance: grossly normal Mental Status: mental status grossly normal Speech and movement: Normal speech and movement present Affect: normal affect Attitude: cooperative Thought process: Normal thought process present Insight: Good insight present (Psych) Judgement: Good judgement present (Psych) Objective Data Vital Signs Vital Signs:
--- NOTE | 2021-12-15 10:16 | PM.PNCARD ---
Progress Note: A&P Assessment and Plan (1) Non-ST elevation myocardial infarction (NSTEMI): Code(s): I21.4 - Non-ST elevation (NSTEMI) myocardial infarction Status: Acute Assessment and Plan: I think that her chest pain is consistent with a non ST-elevation myocardial infarction to improved otherwise. Continue aspirin, p.r.n. nitroglycerin, enoxaparin, metoprolol. NPO after midnight for coronary angiogram tomorrow. Will repeat an EKG today. I will DC enoxaparin after this evening's dose (2) Chronic GERD: Code(s): K21.9 - Gastro-esophageal reflux disease without esophagitis Status: Acute Assessment and Plan: On PPI (3) Dyslipidemia: Code(s): E78.5 - Hyperlipidemia, unspecified Status: Acute Assessment and Plan: Continue pravastatin (4) Chest pain: Code(s): R07.9 - Chest pain, unspecified Status: Acute Assessment and Plan: Related to ACS until proven otherwise. Subjective Date/time seen: 12/15/21 10:16 Interval history: 76-year-old presented to the hospital with chest pain and ruled in for myocardial infarction. Date of service 12/15/2021: Currently, pain free. No chest pain, shortness breath, syncope. Review of Systems Review of Systems: All systems reviewed & are unremarkable except as noted in HPI and below Constitutional: Constitutional: Denies body ache(s) and Denies excessive sweating Eyes: Eyes: Denies blurry vision ENT: Reports Normal hearing present Cardiovascular: Cardiovascular: Reports chest pain Respiratory: Respiratory: Denies chest congestion Gastrointestinal: Gastrointestinal: Denies abdominal pain Genitourinary: Genitourinary: Denies hematuria Musculoskeletal: Musculoskeletal: Denies back pain Integumentary/Breasts: Skin/Breast: Denies dry skin Neurologic: Reports Normal hearing present and Denies Abnormal speech present Psychiatric: Psychiatric: Denies anxiety Endocrine: Endocrine: Denies excessive sweating Hematologic/Lymphatic: Hematologic/Lymphatic: Denies easy bleeding Allergic/Immunologic: Allergic/Immunologic: Denies GI upset with certain foods Exam Narrative: Awake alert pleasant appears stated age Const: General: comfortable and no acute distress HENMT: General nose exam: Normal nares present Mouth: Yes moist mucous membranes Eyes: Sclera: sclerae normal EOM: EOMs intact bilaterally Neck: Neck: supple Thyroid: thyroid normal Carotids: no bruits Chest: Other: No reproducible chest wall pain to palpation Resp: Effort & Inspection: normal respiratory effort Auscultation: clear to auscultation bilaterally Cardio: Rate: regular rate Rhythm: regular rhythm GI: Inspection: non-distended Auscultation: normal bowel sounds Skin: General skin exam: normal color Neuro: Cranial nerves: Yes Normal hearing present Speech: normal speech and No Abnormal speech present Sensory Exam: normal sensation Extrem: General: normal to inspection Psych: Mental Status: mental status grossly normal Affect: normal affect Objective Data Vital Signs Vital Signs: Vital Signs - 24 hr 12/14/21 12:00 12/14/21 12:00 12/14/21 12:00 Temperature 37.0 C Pulse Rate 91 80 Respiratory Rate 16 Blood Pressure 148/74 H Pulse Oximetry 100 100 Oxygen Delivery Room Air 12/14/21 16:00 12/14/21 16:00 12/14/21 14:00 Temperature 36.4 C L Pulse Rate 74 81 Respiratory Rate 12 Blood Pressure 125/86 Pulse Oximetry 100 100 Oxygen Delivery Room Air 12/14/21 16:00 12/14/21 18:00 12/14/21 20:29 Temperature Pulse Rate 71 71 82 Respiratory Rate Blood Pressure Pulse Oximetry Oxygen Delivery 12/14/21 20:00 12/14/21 20:00 12/14/21 22:00 Temperature 36.6 C Pulse Rate 86 93 70 Respiratory Rate 12 Blood Pressure 144/75 H Pulse Oximetry 100 Oxygen Delivery 12/14/21 23:33 12/15/21 00:00 12/15/21 02:00 Temperature 36.4 C Pulse Rate 65
--- NOTE | 2021-12-15 10:20 | ECG_ITS ---
Measurements Intervals [place] Rate: 65 P: 52 MA: 169 QRS: 9 QRSD: 78 T: 23 QT: 413 QTc: 430 Interpretive Statements SINUS RHYTHM NORMAL ECG COMPARED TO ECG 12/13/2021 16:54:15 NO SIGNIFICANT CHANGES Electronically Signed On 12-15-2021 12:23:28 CDT by Jose Spears M.D.
[2021-12-15] MEDS: PRAVASTATIN SODIUM 20 MG TABLET 40 MG PO (20:36)
[2021-12-16] VITALS (26 sets, daily range): BP systolic 120–167; BP diastolic 60–99; PULSE 53–79; RESP 12–58; TEMP 36.2–36.7; O2SAT 97–100
[2021-12-16 05:05] LABS: Anion Gap 7 mmol/L (8-16); Blood Urea Nitrogen 19 mg/dL (7-17); Calcium 9.3 mg/dL (8.4-10.2); Carbon Dioxide 29 mmol/L (22-30); Chloride 103 mmol/L (98-107); Estimated CRCL calculation 36 ml/min; Estimated Glomerular Filt Rate 54; Glucose 93 mg/dL (65-110); Potassium 4.4 mmol/L (3.4-5.0); Sodium 139 mmol/L (137-145)
[2021-12-16] MEDS: METOPROLOL TARTRATE 12.5 MG TABLET PO ×2 (09:31→20:14)
[2021-12-16] MEDS: ASPIRIN 81 MG ENTERIC TABLET PO (09:32)
--- NOTE | 2021-12-16 09:40 | WPDMODSED ---
Moderate Sedation Note-Pt Data Patient Data Diagnosis: Chest pain Minimal troponin elevation Present Complaint: This is a 76-year-old patient with a history of dyslipidemia who experience some chest pain last week. After coming to the hospital troponin levels were found to be minimally elevated. Electrocardiogram looks normal and as does echocardiogram Procedure to be performed/Plan: Left heart catheterization Allergies Allergy/AdvReac Type Severity Reaction Status Date / Time ciprofloxacin [From Cipro] Allergy Unknown Verified 12/13/21 12:35 clarithromycin [From Biaxin] Allergy Unknown Verified 12/13/21 12:35 cyclobenzaprine Allergy Unknown Verified 12/13/21 12:35 [From Flexeril] dexamethasone Allergy Unknown Verified 12/13/21 12:35 levofloxacin [From Levaquin] Allergy Unknown Verified 12/13/21 12:35 naproxen [From Aleve] Allergy Unknown Verified 12/13/21 12:35 Penicillins Allergy Unknown Verified 12/13/21 12:35 ropinirole Allergy Unknown Verified 12/13/21 12:35 sulfamethoxazole Allergy Unknown Verified 12/13/21 12:35 [From Bactrim] trimethoprim [From Bactrim] Allergy Unknown Verified 12/13/21 12:35 Home Medications Medication Instructions Recorded Confirmed Type pravastatin 10 mg tablet 1 tablet PO DAILY 10/30/21 12/13/21 History omeprazole 40 mg BYMOUTH DAILY 12/13/21 12/13/21 History Current Medications: Active Medications Aspirin (Aspirin 81 Mg Enteric Tablet) 81 mg PO QAM [facility] Last Admin: 12/16/21 09:32 Dose: 81 mg Sodium Chloride (Normal Saline Iv) 500 mls @ 100 mls/hr IV CONT .Q5H [facility] Metoprolol Tartrate (Metoprolol Tartrate 12.5 Mg Tablet) 12.5 mg PO Q12HR [facility] Last Admin: 12/16/21 09:31 Dose: 12.5 mg Morphine Sulfate (Morphine Sulfate (*Crx) 2 Mg/Ml Inj) 2 mg IV PUSH Q4H PRN PRN Reason: Pain Rated 7-10 Ondansetron HCl (Ondansetron Inj 4 Mg/2 Ml Vial) 4 mg IV PUSH Q6H PRN PRN Reason: Nausea And Vomiting Pantoprazole Sodium (Pantoprazole 40 Mg Tablet) 40 mg BY MOUTH Q12HR [facility] Last Admin: 12/15/21 20:36 Dose: 40 mg Perflutren Lipid Microsphere (Perflutren Lipid Microspheres 1.5 Ml Vial Diluted To 10 Ml Total Volume) 0 ml IV PUSH ONCE PRN; Protocol PRN Reason: adequate visualization Pravastatin Sodium (Pravastatin Sodium 20 Mg Tablet) 40 mg PO HS ALBERTO Last Admin: 12/15/21 20:36 Dose: 40 mg Sedation/Anesthesia: No previous sedation/anesthesia problems (including family history). PMFSH Past Medical History Medical History (Updated 12/14/21 @ 15:25 by Jose Spears MD) Chest pain Chronic GERD COVID-19 Surgical History Surgical History H/O dilation and curettage History of back surgery Fusion of L4 and 5 History of cataract extraction Family History Family History Father Cancer Mother Generalized anxiety disorder Social History Social History Social History: The patient lives with her who has dementia. The patient takes care of her . She has 3 children. Her 3 children are the durable power patent attorney for healthcare. 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 Patient used to smoke over 30 years ago. No alcohol marijuana or illicit drugs. Code status full code Smoking packs per day: 0.5 Smoking cigarettes per day: 10.0 Years smoked: 34 Smoking pack-years: 17.00 Smoking status: Former smoker Alcohol intake: never Substance use: never Spiritual care concerns: No Mod Sed Physical Exam Physical Exam Pre Procedural Exam: Normal: Appearance, Neck, Throat, Airway, Lungs, Heart Size, Heart Rate, Heart Rhythm, Neuro Exam and Extremities Hours since solid foods: 12 Hours since liquid intake: 12 Mallampati Classification: class II Internal Medicine - PN: Obj Da Vital Signs Vital Signs: Vital Signs - 24 hr 12/15/21 10:02 12/15/21 12:00 12/15/21 10:00
--- NOTE | 2021-12-16 10:08 | P.PNIM_ITS ---
Progress Note: A&P Assessment and Plan (1) Atypical chest pain: Code(s): R07.89 - Other chest pain Status: Inactive Assessment and Plan: -repeat EKG shows sinus rhythm -cardiology consult greatly be appreciated Planned heart catheterization per Cardiology (2) Elevated troponin I level: Code(s): R77.8 - Other specified abnormalities of plasma proteins Status: Inactive Assessment and Plan: -patient currently does not have any chest pain. -continue to trend. -cardiology has been consulted Plan for heart catheterization (3) Chronic GERD: Code(s): K21.9 - Gastro-esophageal reflux disease without esophagitis Status: Acute Assessment and Plan: -continue omeprazole (4) Anxiety: Code(s): F41.9 - Anxiety disorder, unspecified Status: Acute Assessment and Plan: -the patient is anxious about leaving her at home with other family members as he has dementia. (5) Dyslipidemia: Code(s): E78.5 - Hyperlipidemia, unspecified Status: Acute Assessment and Plan: -check lipid panel -check liver enzymes -continue pravastatin Subjective Date/time seen: 12/16/21 10:08 No complaints Exam Const: General: cooperative, healthy appearing, comfortable, no acute distress, well developed, alert, awake and Physically active Nutritional Appearance: average body habitus and well nourished Orientation/consciousness: oriented to person, oriented to place, oriented to time and patient oriented x3 Limitations: no limitations HENMT: Head: normal to inspection, No palpable skull fracture present, normocephalic and atraumatic Ears: hearing grossly normal bilaterally, external ears normal and TM's normal bilaterally General nose exam: Normal external nose present and Normal nares present Eyes: General: appearance normal, both eyes and all related structures Alignment and Position: alignment normal Periorbital: periorbital findings normal Eyelids: eyelids normal Sclera: sclerae normal Pupils: Equal, round and reactive pupils present EOM: EOMs intact bilaterally Neck: Neck: normal visual inspection, full ROM, no lymphadenopathy, trachea midline and supple Chest: Chest palpation & inspection: normal inspection of the chest Resp: Effort & Inspection: normal respiratory effort Auscultation: clear to auscultation bilaterally Percussion: percussion normal Cardio: Palpation: normal PMI Rate: regular rate Rhythm: regular rhythm Heart sounds: S1 normal heart sound present and S2 normal heart sound present Peripheral pulses: Peripheral pulses 2+ throughout GI: Inspection: normal to inspection Auscultation: normal bowel sounds Rectal Exam: deferred Back/Spine/Pelvis: Cervical Spine: cervical ROM normal Skin: General skin exam: normal color Lesions: no lesions Rashes: no rashes Trauma: no lacerations or abrasions Wounds: no wounds Hair: normal Nails: normal Neuro: General: oriented to person, oriented to place, oriented to time and patient oriented x3 Cranial nerves: Yes Equal, round and reactive pupils present and Yes Normal hearing present Cognition (Neuro): normal cognition Speech: normal speech Gait exam (Neuro): Normal gait present Motor exam (neuro): 5/5 motor strength present throughout Sensory Exam: normal sensation Extrem: General: normal to inspection Right upper extremity: normal to inspection and shoulder/upper arm Left upper extremity: normal to inspection
--- NOTE | 2021-12-16 10:25 | WPDCARDPROC ---
Cardiac Cath Procedure Note Date of procedure:: 12/16/21 Performing physician:: Gurwinder Fisher MD Indication:: chest pain/elevated troponin Brief clinical history:: this is a 76-year-old woman without previous history of cardiac disease who had several episodes of chest discomfort last week. She came into the hospital over the weekend where her electrocardiogram was found to be unremarkable. Troponin levels are slightly out of normal range but are flat. In this setting angiography has been recommended. Procedure Procedure performed:: Left ventriculogram coronary angiogram Sedation/Medication given:: fentanyl 25 mg Versed 2 mg case start time 9:54 a.m. case end time 10:14 a.m. sedation provided by Yemi Covington RN, trained observer Access site:: right femoral artery Estimated blood loss:: 20 cc Procedure note:: patient was brought to the cardiac catheterization lab in the postabsorptive state where the right femoral triangle was prepared and draped in the usual fashion. Anesthesia was given with 1% lidocaine infiltrated locally. Using modified Seldinger technique a 5 [place] sheath was placed into the femoral artery. After this left heart catheterization was carried out. A 5 [place] angled pigtail catheter was used to measure left-sided hemodynamics and to inject the left ventriculogram in the LARA projection. Following this the left coronary artery was engaged and injected using a 5 [place] FL4 catheter. A 5 [place] JR4 catheter was used to engage and inject the right coronary artery. The cineangiograms were then reviewed and the case was terminated. The patient was taken to the holding area for manual sheath removal. There were no apparent procedural complications and there was no sign of a groin hematoma upon leaving the cath lab nurse. Findings:: Hemodynamics: Central aortic pressure is 150/0 end-diastolic pressure 8. left ventricle was 150/0 end-diastolic pressure 10. There is no significant gradient on pullback across the aortic valve. Left ventricle: The LV is normal in size all segments contract appropriately the global ejection fraction is visually estimated to be 60-65% with no regional wall motion abnormalities. The left main coronary artery is medium in caliber and patent the left anterior descending is a medium caliber artery extending down to and around the apex. There is a area of aneurysmal dilatation in the proximal 3rd of the LAD. In the midportion of the artery there is a eccentric stenosis of 70-80% distal to the area of aneurysmal dilatation. There was RUDY 3 flow in the LAD. Circumflex is a moderate caliber vessel giving rise to marginal branches. The largest OM branch which is OM 2 has a discrete 80% stenosis. In the WOLOF cranial projection this appears to be a 90% stenosis. The right coronary artery is medium in caliber and dominant to the posterior circulation. There is a 95% ostial right coronary artery stenosis. The trunk of the RCA between the 2nd and 3rd portions has mild 30-40% stenosis. The RPDA and RPL branches are free of significant disease but are relatively small. Conclusion:: 1. right coronary artery dominant circulation with evidence of 3 vessel coronary artery disease as described above 2. culprit lesion for the presentation appears to be the high-grade 95% ostial RCA stenosis described above 3. 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 4. 80-90% stenosis in the OM 2 which is the largest marginal branch in this patient 5. nicely preserved left ventricular systolic contractility Gurwinder Fisher MD [facility]
[2021-12-16] MEDS: SODIUM CHLORIDE 0.9% IV 1,000 ML 125 ML IV CONT (14:12)
[2021-12-16] MEDS: ONDANSETRON INJ 4 MG/2 ML VIAL IV PUSH (14:14)
[2021-12-16] MEDS: PANTOPRAZOLE 40 MG TABLET BY MOUTH (18:01)
[2021-12-16] MEDS: PRAVASTATIN SODIUM 20 MG TABLET 40 MG PO (20:14)
[2021-12-17] VITALS (11 sets, daily range): BP systolic 89–127; BP diastolic 61–70; PULSE 55–73; RESP 12–18; TEMP 36.3–36.5; O2SAT 98–100
[2021-12-17] MEDS: METOPROLOL TARTRATE 12.5 MG TABLET PO (08:31)
[2021-12-17] MEDS: PANTOPRAZOLE 40 MG TABLET BY MOUTH (08:31)
--- NOTE | 2021-12-17 08:31 | PM.PNCARD ---
Progress Note: A&P Assessment and Plan (1) Non-ST elevation myocardial infarction (NSTEMI): Code(s): I21.4 - Non-ST elevation (NSTEMI) myocardial infarction Status: Acute Assessment and Plan: Coronary angiogram yesterday revealed 3 vessel coronary artery disease with findings described below: the left anterior descending is a medium caliber artery extending down to and around the apex. There is a area of aneurysmal dilatation in the proximal 3rd of the LAD. In the midportion of the artery there is a eccentric stenosis of 70-80% distal to the area of aneurysmal dilatation. There was RUDY 3 flow in the LAD. Circumflex is a moderate caliber vessel giving rise to marginal branches. The largest OM branch which is OM 2 has a discrete 80% stenosis. In the JAKUB cranial projection this appears to be a 90% stenosis. The right coronary artery is medium in caliber and dominant to the posterior circulation. There is a 95% ostial right coronary artery stenosis. The trunk of the RCA between the 2nd and 3rd portions has mild 30-40% stenosis. The RPDA and RPL branches are free of significant disease but are relatively small. Recommendation is for outpatient referral to [facility] for consideration for CABG vs. high risk PCI. Continue ASA, statin, Imdur (2) Chronic GERD: Code(s): K21.9 - Gastro-esophageal reflux disease without esophagitis Status: Acute Assessment and Plan: On PPI (3) Dyslipidemia: Code(s): E78.5 - Hyperlipidemia, unspecified Status: Acute Assessment and Plan: Continue pravastatin (4) Chest pain: Code(s): R07.9 - Chest pain, unspecified Status: Acute Assessment and Plan: Related to ACS. Subjective Date/time seen: 12/17/21 08:31 Interval history: 76-year-old presented to the hospital with chest pain and ruled in for myocardial infarction. Date of service 12/15/2021: Currently, pain free. No chest pain, shortness breath, syncope. Date of service 12/17/2021: Sitting up in the chair at the bedside. Denying any chest pain, shortness of breath, palpitations. She has ambulated around her room and feels fine with that. Eager to go home. Review of Systems Review of Systems: All systems reviewed & are unremarkable except as noted in HPI and below Constitutional: Constitutional: Denies body ache(s) and Denies excessive sweating Eyes: Eyes: Denies blurry vision ENT: Reports Normal hearing present Cardiovascular: Cardiovascular: Reports chest pain Respiratory: Respiratory: Denies chest congestion Gastrointestinal: Gastrointestinal: Denies abdominal pain Genitourinary: Genitourinary: Denies hematuria Musculoskeletal: Musculoskeletal: Denies back pain Integumentary/Breasts: Skin/Breast: Denies dry skin Neurologic: Reports Normal hearing present and Denies Abnormal speech present Psychiatric: Psychiatric: Denies anxiety Endocrine: Endocrine: Denies excessive sweating Hematologic/Lymphatic: Hematologic/Lymphatic: Denies easy bleeding Allergic/Immunologic: Allergic/Immunologic: Denies GI upset with certain foods Exam Narrative: Awake alert pleasant appears stated age Const: General: comfortable and no acute distress HENMT: General nose exam: Normal nares present Mouth: Yes moist mucous membranes Eyes: Sclera: sclerae normal EOM: EOMs intact bilaterally Neck: Neck: supple Thyroid: thyroid normal Carotids: no bruits Chest: Other: No reproducible chest wall pain to palpation Resp: Effort & Inspection: normal respiratory effort Auscultation: clear to auscultation bilaterally Cardio: Rate: regular rate Rhythm: regular rhythm GI: Inspection: non-distended Auscultation: normal bowel sounds Skin: General skin exam: normal color Other: Right groin arterial access site free from hematoma, ecchymosis, bruit. Neuro: Cranial nerves: Yes Normal hearing present Speech: normal speech and No Abnormal speech present
[2021-12-17] MEDS: ASPIRIN 81 MG ENTERIC TABLET PO (08:32)
[2021-12-17] MEDS: ISOSORBIDE MONONITRATE 30 MG TAB.ER.24H PO (08:32)
--- NOTE | 2021-12-17 12:01 | PM.DS ---
DS: Admitting Diagnosis Discharge Date December 17, 2021 Admitting Diagnosis cp, cad DS: Discharge Diagnosis Discharge Diagnosis (1) Atypical chest pain: Code(s): R07.89 - Other chest pain Status: Inactive Assessment and Plan: Status post left heart catheterization. Multi-vessel disease. Will need to follow up in [place] for staged PCI versus CABG. (2) Elevated troponin I level: Code(s): R77.8 - Other specified abnormalities of plasma proteins Status: Inactive Assessment and Plan: See plan above (3) Chronic GERD: Code(s): K21.9 - Gastro-esophageal reflux disease without esophagitis Status: Acute Assessment and Plan: -continue omeprazole (4) Anxiety: Code(s): F41.9 - Anxiety disorder, unspecified Status: Acute Assessment and Plan: -the patient is anxious about leaving her at home with other family members as he has dementia. (5) Dyslipidemia: Code(s): E78.5 - Hyperlipidemia, unspecified Status: Acute Assessment and Plan: -check lipid panel -check liver enzymes -continue pravastatin DS: Summary Hospital Course Hospital Course: Patient was admitted for chest pain found have mildly elevated troponin. She did go to the cardiac cath lab technologist have left heart catheterization. She has multi-vessel disease she will need to follow up in [place] for evaluation for possible CABG versus staged PCI. Time Spent with Patient Time attestation: Total time spent providing and/or coordinating discharge services: Exam Const: General: cooperative, healthy appearing, comfortable, no acute distress, well developed, alert, awake and Physically active Nutritional Appearance: average body habitus and well nourished Orientation/consciousness: oriented to person, oriented to place, oriented to time and patient oriented x3 Limitations: no limitations HENMT: Head: normal to inspection, No palpable skull fracture present, normocephalic and atraumatic Ears: hearing grossly normal bilaterally, external ears normal and TM's normal bilaterally General nose exam: Normal external nose present and Normal nares present Eyes: General: appearance normal, both eyes and all related structures Alignment and Position: alignment normal Periorbital: periorbital findings normal Eyelids: eyelids normal Sclera: sclerae normal Pupils: Equal, round and reactive pupils present EOM: EOMs intact bilaterally Neck: Neck: normal visual inspection, full ROM, no lymphadenopathy, trachea midline and supple Chest: Chest palpation & inspection: normal inspection of the chest Resp: Effort & Inspection: normal respiratory effort Auscultation: clear to auscultation bilaterally Percussion: percussion normal Cardio: Palpation: normal PMI Rate: regular rate Rhythm: regular rhythm Heart sounds: S1 normal heart sound present and S2 normal heart sound present Peripheral pulses: Peripheral pulses 2+ throughout GI: Inspection: normal to inspection Auscultation: normal bowel sounds Rectal Exam: deferred Back/Spine/Pelvis: Cervical Spine: cervical ROM normal Skin: General skin exam: normal color Lesions: no lesions Rashes: no rashes Trauma: no lacerations or abrasions Wounds: no wounds Hair: normal Nails: normal Neuro: General: oriented to person, oriented to place, oriented to time and patient oriented x3 Cranial nerves: Yes Equal, round and reactive pupils present and Yes Normal hearing present Cognition (Neuro): normal cognition Speech: normal speech Gait exam (Neuro): Normal gait present Motor exam (neuro): 5/5 motor strength present throughout Sensory Exam: normal sensation Extrem: General: normal to inspection Right upper extremity: normal to inspection and shoulder/upper arm Left upper extremity: normal to inspection and shoulder/upper arm Right lower extremity: normal to inspection Left lower extremity: normal to inspection Psych: Appearance: grossly n
--- NOTE | 2021-12-17 12:16 | PC.NURSE ---
Notified Claudia Cardona NP of decreased BP after morning medication administer. Pt is asymptomatic with BP of 89/61 in Right arm and 89/57 in left arm. New order for 250ml bolus IVPB x1. Recheck BP in 2 hours after bolus has infused and notify [facility] with BP measurements.
[2021-12-17] MEDS: SODIUM CHLORIDE 0.9% IV 250 ML 999 ML IV CONT (12:56)
== END 2021-12-17 16:04 | disposition home or self-care (01) | DRG 282 ==
PROVIDERS: Nurse Practitioner; Specialist; Admitting Provider Internal Medicine; PCP Internal Medicine; Visit Provider Chiropractor
PROC: 4A023N7 Measurement of Cardiac Sampling and Pressure, Left Heart, Percutaneous Approach (ICD-10-PCS; CPT 93452; principal; 2021-12-16 11:30)
DX: I21.4 Non-ST elevation (NSTEMI) myocardial infarction (principal); R77.8 Other specified abnormalities of plasma proteins; K21.9 Gastro-esophageal reflux disease without esophagitis; E78.5 Hyperlipidemia, unspecified; F41.9 Anxiety disorder, unspecified; Z87.891 Personal history of nicotine dependence
CPT/HCPCS: 36415; 80048; 80053; 80061; 83605; 83615; 83735; 84100; 84443; 84484; 85025; 85027; 85610; 85730; 93005; 93306; 93458; 93970; 96372; A9270; C1887; C1894; G0378; G0379; J1644; J1650; J2250; J2405; J3010; J7030; J7040; J7050

== ENCOUNTER 2021-12-27 18:50 | Inpatient (IN) | payer MEDICARE, OTHER, SELFPAY ==
[2021-12-27] VITALS (13 sets, daily range): BP systolic 145–206; BP diastolic 83–108; PULSE 71–89; RESP 14–20; TEMP 36.3–36.8; O2SAT 92–100; BMI 25.7
--- NOTE | ~2021-12-27 | CT_ITS ---
EXAMINATION: CT abdomen pelvis w con DATE: 12/30/2021 10:07 INDICATION: Retroperitoneal hemorrhage. TECHNIQUE: Computed tomography (CT) of the abdomen and pelvis was performed with 100 mL Omnipaque 350 intravenous contrast. Automated exposure control and iterative reconstruction technique were employe d. The dose-length product was 339.07 mGy-cm. COMPARISON: CT abdomen and pelvis 04/16/2005 FINDINGS: The visualized portions of the lung bases demonstrate mild atelectasis and mild bronchiecta sis. There are small pleural effusions, left worse than right. The heart size is normal. No pericardi al effusion. The liver, gallbladder, spleen, pancreas, adrenal glands, and kidneys are normal. There are no dilated loops of bowel. The appendix is normal. There is calcified atherosclerosis of the aort a and many of the other arteries. There is a 2.0 x 0.9 cm pseudoaneurysm of right common femoral kul[place] ry with surrounding small hematoma. There are no pathologically enlarged lymph nodes. There is no rosalia e intraperitoneal fluid. There is severe thoracolumbar spondylosis. There is dextroscoliosis of thora cic lumbar spine. IMPRESSION: 1. Small pseudoaneurysm of right common femoral artery. 2. Small pleural effusions. Reviewed, dictated and finalized at location A.
--- NOTE | ~2021-12-27 | US_ITS ---
EXAMINATION: US arterial duplex LE RT DATE: 12/31/2021 12:40 INDICATION: Postprocedural hemorrhage of a circulatory organ or structure following a cardiac cathete r, bypass, or other circulatory system procedure. Right common femoral artery pseudoaneurysm. TECHNIQUE: Multiple grayscale and Doppler ultrasound images of the right lower limb were obtained. COMPARISON: CT 12/30/2021 FINDINGS: There is a small hematoma superficial to right common femoral artery. No pseudoaneurysm. Th ere is no significant stenosis of right common femoral artery, superficial femoral artery, or deep fe moral artery. Right common femoral vein and femoral vein are patent. There is a large right-sided Gavi er's cyst. IMPRESSION: 1. No pseudoaneurysm. 2. Large right-sided Quintero's cyst. Reviewed, dictated and finalized at location A.
--- NOTE | 2021-12-27 19:00 | ECG_ITS ---
Measurements Intervals [place] Rate: 86 P: 35 CT: 158 QRS: 20 QRSD: 81 T: 87 QT: 370 QTc: 444 Interpretive Statements SINUS RHYTHM INFERIOR ST ELEVATION MYOCARDIAL INFARCT- ACUTE RECIPROCAL ST DEPRESSION IN HIGH LATERAL LEADS ANTEROLATERAL ST ELEVATION- CONSIDER ACUTE INJURY BASELINE ARTIFACT- I, III, AVL, V2 ABNORMAL ECG COMPARED TO ECG 12/15/2021 11:07:[address] ELEVATION MYOCARDIAL INFARCT- ACUTE NOW PRESENT RECIPROCAL ST DEPRESSION IN HIGH LATERAL LEADS NOW PRESENT ANTEROLATERAL ST ELEVATION- CONSIDER ACUTE INJURY NOW PRESENT Electronically Signed On 12-27-2021 20:51:09 CDT by Yoni Escobar D.O.
[2021-12-27] MEDS: HEPARIN SOD/D5W 100 UNITS/ML 25,000 UNITS/250 ML BAG 7 UNITS IV CONT (19:16)
--- NOTE | 2021-12-27 19:16 | ED.CHESTPAIN ---
HPI - Chest Pain General Chief Complaint: Chest Pain Stated Complaint: CP; STEMI CALLED IN FIELD Time Seen by Provider: 12/27/21 19:01 Source: patient, family and EMS Mode of arrival: EMS Limitations: no limitations History of Present Illness HPI narrative: 76 years old white female came to the ED by ambulance complaining of sudden onset of retrosternal burning sensation radiating to left upper chest while eating, similar to her previous history of chest pain prior to stent placement December 15 patient is status post 5 stent placement at [facility] 3 days ago. Currently patient on aspirin and Brilinta. Related Data Allergies Allergy/AdvReac Type Severity Reaction Status Date / Time ciprofloxacin [From Cipro] Allergy Unknown Verified 12/13/21 12:35 clarithromycin [From Biaxin] Allergy Unknown Verified 12/13/21 12:35 cyclobenzaprine Allergy Unknown Verified 12/13/21 12:35 [From Flexeril] dexamethasone Allergy Unknown Verified 12/13/21 12:35 levofloxacin [From Levaquin] Allergy Unknown Verified 12/13/21 12:35 naproxen [From Aleve] Allergy Unknown Verified 12/13/21 12:35 Penicillins Allergy Unknown Verified 12/13/21 12:35 ropinirole Allergy Unknown Verified 12/13/21 12:35 sulfamethoxazole Allergy Unknown Verified 12/13/21 12:35 [From Bactrim] trimethoprim [From Bactrim] Allergy Unknown Verified 12/13/21 12:35 Review of Systems Review of Systems: All systems reviewed & are unremarkable except as noted in HPI and below PMFSH Past Medical History Medical History Chest pain Chronic GERD COVID-19 Surgical History Surgical History H/O dilation and curettage History of back surgery Fusion of L4 and 5 History of cataract extraction Family History Family History Father Cancer Mother Generalized anxiety disorder Social History Social History Social History: The patient lives with her who has dementia. The patient takes care of her . She has 3 children. Her 3 children are the durable power sports attorney for healthcare. 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 Patient used to smoke over 30 years ago. No alcohol marijuana or illicit drugs. Code status full code Smoking packs per day: 0.5 Smoking cigarettes per day: 10.0 Years smoked: 34 Smoking pack-years: 17.00 Smoking status: Former smoker Alcohol intake: never Substance use: never Spiritual care concerns: No Exam Narrative: General appearance: Well-developed, well-nourished, anxious Skin: Normal color Head: Normocephalic, nontraumatic Eyes: Clear conjunctiva ENT: Oropharynx normal, ears normal, nose normal Neck: Supple, nontender Chest and respiratory: Airway patent, no respiratory distress, no accessory muscle use Heart: Regular rate/rhythm Abdomen: Soft, nontender, no organomegaly, quiet bowel sounds Vascular: Normal peripheral pulses, normal capillary refill. Musculoskeletal: Normal range of motion, nontender back Neurologic: Alert and oriented ?3, RADIOLOGY INTERVENTIONAL PHYSICIAN is normal as tested, no gross motor deficit Course Consultations Consultation #1: DR RICCI Date: 12/27/21 Vital Signs Vital signs: Vital Signs Temperature 36.3 C L 12/27/21 18:52 Pulse Rate 86 12/27/21 18:52 Respiratory Rate 18 12/27/21 18:52 Blood Pressure 206/105 H 12/27/21 18:52 Pulse Oximetry 100 12/27/21 18:52 Oxygen Delivery Room Air 12/27/21 18:52 Temperature 36.8 C 12/27/21 19:22 Pulse Rate 87 12/27/21 19:22 Respiratory Rate 16
[2021-12-27 19:23] LABS: Basophils Absolute Auto 0.1 K/mm3 (0.0-0.1); Eosinophils Absolute Auto 0.4 K/mm3 (0-0.3); Eosinophils Percent Auto 6.3 % (0-4.4); Hematocrit 37.9 % (37.0-47.0); Hemoglobin 11.6 g/dL (12.0-15.0); Immature Granulocyte Absolute 0.03 K/mm3 (0.00-0.031); Immature Granulocyte Percent A 0.4 % (0-0.5); Lymphocytes Absolute Auto 1.55 K/mm3 (0.9-3.2); Lymphocytes Percent Auto 22.8 % (18.3-44.2); Mean Corpuscular HGB Conc 30.6 g/dl (32-36); Mean Corpuscular Hemoglobin 25.4 pg (26-34); Mean Corpuscular Volume 82.9 fl (80-100); Mean Platelet Volume 9.6 fl (7.4-10.4); Monocytes Absolute Auto 0.8 K/mm3 (0.1-0.6); Monocytes Percent Auto 11.5 % (2.6-8.5); Neutrophils Absolute Auto 3.9 K/mm3 (1.3-6.7); Platelet Count Result 244 k/mm3 (150-375); Red Blood Count 4.57 M/mm3 (4.2-5.4); Red Cell Distribution Width 15.1 % (11.5-14.5); White Blood Count 6.8 K/mm3 (4.5-10.0)
[2021-12-27 19:27] LABS: INR 1.1; Prothrombin Time 13.5 Seconds (11.1-14.7)
[2021-12-27 19:28] LABS: Partial Thromboplastin Time 31.2 SECONDS (22.3-36.8)
[2021-12-27 19:32] LABS: Alanine Aminotransferase 23 U/L (6-35); Albumin Level 4.3 g/dL (3.5-5.1); Alkaline Phosphatase 119 U/L (38-126); Anion Gap 13 mmol/L (8-16); Aspartate Amino Transferase 37 U/L (14-36); Bilirubin,Total 0.4 mg/dL (0.2-1.3); Blood Urea Nitrogen 20 mg/dL (7-17); Calcium 9.1 mg/dL (8.4-10.2); Carbon Dioxide 22 mmol/L (22-30); Chloride 103 mmol/L (98-107); Cholesterol 206 mg/dL (0-200); Estimated CRCL calculation 28 ml/min; Estimated Glomerular Filt Rate 40; Glucose 145 mg/dL (65-110); HDL Direct 87 mg/dL; Potassium 4.1 mmol/L (3.4-5.0); Sodium 138 mmol/L (137-145); Triglycerides 82 mg/dL (<150)
--- NOTE | 2021-12-27 19:37 | PM.IMHP ---
H&P: HPI History of Present Illness Date/Time: 12/27/21 19:37 Chief Complaint: Chest pain Narrative: 76-year-old female with severe multivessel CAD, recent non ST-elevation [place] status status post multivessel PCI - rotational atherectomy/ostial-distal RCA stenting using 3.5 x 38 mm, 3.0 x 48 mm synergy everolimus eluting stent; PTCA/ 3.5 x 16 mm megatron proximal, 3.0 x 48 mm synergy mid distal LAD; PTCA/ 3.0 x 16 mm synergy everolimus eluting stent distal OM on 12/24/2021 at [facility]. Patient was brought to [facility] emergency room this evening via EMS with complaints of chest pain. Her EKG showed ST segment elevation in the inferior leads with reciprocal ST depression. Cardiac catheterization lab was activated for primary PCI. At the time of evaluation in the minilab operator, patient had ongoing chest discomfort associated with Shortness of breath and anxiety. She reported compliance with dual antiplatelet therapy with aspirin and ticagrelor. Review of Systems Review of Systems: General: Negative for fever, chills, fatigue Psychological: positive for anxiety Ophthalmic: negative for loss of vision ENT: Negative for epistaxis, headaches Allergy and immunology: Negative for hives, nasal congestion Hematologic and lymphatic: Negative for overt bleeding problems Endocrine: Negative for hot flashes, palpitations Respiratory: Negative for cough, hemoptysis Cardiovascular: Positive for chest pain Gastrointestinal: Negative for abdominal pain, nausea, vomiting, hematochezia Musculoskeletal: Negative for myalgia, joint pains Neurological: Negative for weakness Dermatological: Negative for rash, skin discoloration PMFSH Past Medical History Medical History Chest pain Chronic GERD COVID-19 Surgical History Surgical History H/O dilation and curettage History of back surgery Fusion of L4 and 5 History of cataract extraction Family History Family History Father Cancer Mother Generalized anxiety disorder Social History Social History Social History: The patient lives with her who has dementia. The patient takes care of her . She has 3 children. Her 3 children are the durable power unix consultant for healthcare. 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 Patient used to smoke over 30 years ago. No alcohol marijuana or illicit drugs. Code status full code Smoking packs per day: 0.5 Smoking cigarettes per day: 10.0 Years smoked: 34 Smoking pack-years: 17.00 Smoking status: Former smoker Alcohol intake: never Substance use: never Spiritual care concerns: No Meds Home Medications and Allergies Home Medications Medication Instructions Recorded Confirmed Type aspirin 81 mg tablet,delayed 81 mg PO QAM 30 days #30 tabs 12/17/21 Rx release isosorbide mononitrate 30 mg 30 mg PO QAM 30 days #30 tabs 12/17/21 Rx tablet,extended release 24 hr metoprolol succinate 25 mg capsule 12.5 mg PO HS #30 ea 12/17/21 Rx sprinkle, ext. release 24 hr pantoprazole 40 mg tablet,delayed 40 mg BYMOUTH DAILY 30 days #30 12/17/21 Rx release tabs pravastatin 20 mg tablet 40 mg PO HS 30 days #60 tabs 12/17/21 Rx Allergies Allergy/AdvReac Type Severity Reaction Status Date / Time ciprofloxacin [From Cipro] Allergy Unknown Verified 12/13/21 12:35 clarithromycin [From Biaxin] Allergy Unknown Verified 12/13/21 12:35 cyclobenzaprine Allergy Unknown Verified 12/13/21 12:35 [From Flexeril] dexamethasone Allergy Unknown Verified 12/13/21 12:35 levofloxacin [From Levaquin] Allergy Unknown Verified 12/13/21 12:35 naproxen [From Aleve] Allergy Unknown Verified 12/13/21 12:35 Penicillins Allergy Unknown Verified 12/13/21 12:35 ropinirole Allergy Unknown Verified
[2021-12-27 19:43] LABS: LDL Cholesterol Direct 83 mg/dL
--- NOTE | 2021-12-27 20:16 | WPDCARDPROC ---
Cardiac Cath Procedure Note Date of procedure:: 12/27/21 Performing physician:: Beni Patel MD Procedure Procedure performed:: EMERGENT LEFT HEART CATHETERIZATION AND CORONARY ANGIOGRAM REPORT DATE OF PROCEDURE: 12/27/2021 INDICATION FOR PROCEDURE: Recurrent chest pain, ST segment abnormality BRIEF CLINICAL HISTORY: 76-year-old female with severe multivessel CAD, recent non ST-elevation [place] status status post multivessel PCI - rotational atherectomy/ostial-distal RCA stenting using 3.5 x 38 mm, 3.0 x 48 mm synergy everolimus eluting stent; PTCA/? 3.5 x 16 mm megatron proximal, 3.0 x 48 mm synergy mid distal LAD; PTCA/ 3.0 x 16 mm synergy everolimus eluting stent distal OM on 12/24/2021 at [facility]. Patient was brought to [facility] emergency room this evening via EMS with complaints of chest pain that started about an hour ago.? Her EKG showed ST segment elevation in the inferior leads with reciprocal ST depression.? Cardiac catheterization lab was activated for primary PCI.? She reported compliance with dual antiplatelet therapy with aspirin and ticagrelor. PROCEDURES PERFORMED: 1. Emergent left heart catheterization- Selective left and right coronary angiogram; left ventriculogram and hemodynamic assessment 2. Deployment of Mynx hemostatic device 3. Moderate sedation-CPT code 85094 MODERATE SEDATION: Midazolam 1 mg; fentanyl 25 mcg; morphine 2 mg IV x1; Start time 1948 , Stop time 2004 ; Total [id number] time 16 minutes; Yemi Covington RN was trained observer for moderate sedation. ACCESS SITE: Right common femoral artery PROCEDURE NOTE: patient was emergently brought to catheterization lab and prepped and draped in a usual sterile manner. After local anesthesia with lidocaine, right common femoral artery access was taken with micropuncture needle followed by insertion of a 6 [place] sheath. Selective left and right coronary angiogram was performed using 5 [place] JL4 diagnostic catheter and JR4 guide catheter respectively. Orthogonal views were taken. JR4 guide catheter advanced in the LV cavity while attempting to engage RCA. Next the catheter was flushed with normal saline. LV pressure measurement was performed. After this, left ventriculogram was performed using minimal dye. The catheter was flushed again, and gradient across the aortic valve was measured on the pullback of the catheter. Finally, Mynx vascular closure device was deployed. There were no immediate procedure related complications. FINDINGS: LEFT MAIN CORONARY: left main coronary artery is a medium caliber vessel with about 20-30% stenosis in the distal segment before it bifurcates into LAD and left circumflex margin. LEFT ANTERIOR DESCENDING ARTERY: The LAD has 2 long stents with measurements as described above; extending from proximal all the way to the Proximal part of distal segment. The stents are patent, however, the vessel distal to the stent is diminutive vessel on today's angiogram with sluggish blood flow. 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 The diagonal branch which arises in the aneurysmal segment is small to medium caliber vessel with poorly defined narrowing at the ostium; and about 50 % stenosis in the mid segment. LEFT CIRCUMFLEX ARTERY: the left circumflex artery is a medium caliber vessel which gives rise to small caliber OM1 branch and medium to large caliber OM2 branch, and small caliber OM3 branch. OM2 branch has a stent in the proximal segment which is patent without any significant lumen loss. The small secondary branch of om 2 has significant stenosis at the ostium. RIGHT CORONARY ARTERY: the RCA is stented with 2 long stents from ostium all the way to the distal segment before it bifurcates into smaller caliber PDA and PLV branches. The stents are patent without any angiographically visible thrombus. LEFT VENTRICULOGRAM: Preserved overall LV systoli
--- NOTE | 2021-12-27 20:37 | PC.NURSE ---
This patient, Sharon Gomes, was admitted to Intensive Care Unit-9. Patient/family oriented to hospital policies and general routines including ID bracelet, bed and alarms, visiting hours, pain management, procedures, bathroom and other care routines, personal items, smoking policy, room service/diet, and visiting hours. Information on how to activate the Rapid Response Team has been discussed. Patient/Family are encouraged to report perceived risks to care and to ask questions if they do not understand what they are told or what they should do.
--- NOTE | 2021-12-27 20:42 | ECG_ITS ---
Measurements Intervals [place] Rate: 77 P: 16 MS: 155 QRS: 1 QRSD: 87 T: 61 QT: 389 QTc: 441 Interpretive Statements SINUS RHYTHM BORDERLINE R WAVE PROGRESSION, ANTERIOR LEADS INFERIOR INFARCT, PROBABLY RECENT ABNORMAL ECG COMPARED TO ECG 12/27/2021 18:53:57 NO SIGNIFICANT CHANGES Electronically Signed On 12-28-2021 14:41:44 CDT by Yoni Escobar D.O.
[2021-12-27] MEDS: SODIUM CHLORIDE 0.9% IV 1,000 ML 125 ML IV CONT (21:14)
[2021-12-27] MEDS: NITROGLYCERIN/D5W 200 MCG/ML 50 MG/250 ML BTL 6 MG IV CONT (21:18)
[2021-12-27] MEDS: METOPROLOL TARTRATE 25 MG TABLET PO (23:14)
[2021-12-27] MEDS: PANTOPRAZOLE 40 MG TABLET PO (23:14)
[2021-12-27] MEDS: MORPHINE SULFATE (*CRX) 2 MG/ML INJ IV PUSH (23:19)
[2021-12-27] MEDS: ONDANSETRON INJ 4 MG/2 ML VIAL 2 MG IV PUSH (23:19)
[2021-12-28] VITALS (22 sets, daily range): BP systolic 121–150; BP diastolic 73–99; PULSE 63–89; RESP 12–26; TEMP 36.6–36.8; O2SAT 94–100
[2021-12-28 03:21] LABS: Hematocrit 34.7 % (37.0-47.0); Hemoglobin 10.7 g/dL (12.0-15.0); Mean Corpuscular HGB Conc 30.8 g/dl (32-36); Mean Corpuscular Hemoglobin 25.6 pg (26-34); Mean Platelet Volume 9.5 fl (7.4-10.4); Platelet Count Result 218 k/mm3 (150-375); Red Blood Count 4.18 M/mm3 (4.2-5.4); White Blood Count 8.6 K/mm3 (4.5-10.0)
[2021-12-28 03:33] LABS: Partial Thromboplastin Time 66.9 SECONDS (22.3-36.8)
[2021-12-28 03:35] LABS: Alanine Aminotransferase 24 U/L (6-35); Albumin Level 3.4 g/dL (3.5-5.1); Alkaline Phosphatase 101 U/L (38-126); Anion Gap 7 mmol/L (8-16); Aspartate Amino Transferase 59 U/L (14-36); Bilirubin,Total 0.4 mg/dL (0.2-1.3); Blood Urea Nitrogen 20 mg/dL (7-17); Calcium 8.6 mg/dL (8.4-10.2); Carbon Dioxide 20 mmol/L (22-30); Chloride 109 mmol/L (98-107); Estimated CRCL calculation 40 ml/min; Estimated Glomerular Filt Rate > 60; Glucose 129 mg/dL (65-110); Sodium 136 mmol/L (137-145)
[2021-12-28] MEDS: HEPARIN SODIUM 5,000 UNITS/ML VIAL 2500 UNITS IV PUSH (03:41)
[2021-12-28] MEDS: ONDANSETRON INJ 4 MG/2 ML VIAL 2 MG IV PUSH (06:34)
--- NOTE | 2021-12-28 08:30 | WPDCNINT ---
Assessment and Plan Assessment and plan (1) ST elevation (STEMI) myocardial infarction: Code(s): I21.3 - ST elevation (STEMI) myocardial infarction of unspecified site Status: Acute Assessment and Plan: Patient has history of recent non STEMI requiring multiple stent placement at [facility] on 12/24 and presented with chest pain along with ST segment elevation in inferior leads 9/9 Status post cardiac catheterization which showed 1. Patent recently placed? multiple stents in ostial-distal RCA; patent proximal mid-distal LAD stents with diminished flow in the diminutive distal LAD; patent OM2 stent.? 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 2.? Preserved overall LV systolic function, ejection fraction about 55-60%, LVEDP elevated at 34 mmHg. Continue nitroglycerin infusion and heparin infusion ICU telemetry monitoring Patient had recent echo which was reviewed Continue aspirin statin Brilinta beta-kylee (2) Chronic GERD: Code(s): K21.9 - Gastro-esophageal reflux disease without esophagitis Status: Acute Assessment and Plan: Continue PPI and p.r.n. Tums (3) Dyslipidemia: Code(s): E78.5 - Hyperlipidemia, unspecified Status: Acute Assessment and Plan: Continue statin (4) Elevated serum creatinine: Code(s): R79.89 - Other specified abnormal findings of blood chemistry Status: Acute Assessment and Plan: Patient presented with elevated serum creatinine but level done this morning is normal range. Could be secondary to dehydration Monitor Plan DVT prophylaxis -on heparin infusion Stress ulcer prophylaxis -on PPI Nutrition -cardiac diet Code Status - Full Code Medical Scientific Officer Consult Note Consult date: 12/28/21 Reason for consult: STEMI HPI: Sharon Gomes is a 76 year old female with past medical history of coronary disease status post complicated PCI at [facility] on 12/24/21 where 5 stents were placed non STEMI. She return to ER yesterday chief complaint of chest pain. Patient states that she was stressed out because of some family issues and started having heartburn type pain in the middle of chest. Pain was 10 are 10, radiated to left arm and was continued. Pain was associated with a little bit of nausea but no vomiting. No Shortness of breath palpitation. Prior to that no orthopnea or PND. She denied any fever cough dysuria hematuria hematochezia melena. No headaches or blurred vision. All other systems were reviewed and were negative. In ED patient was diagnosed with STEMI was taken to cardiac catheterization lab. Cardiac catheterization showed 1. Patent recently placed? multiple stents in ostial-distal RCA; patent proximal mid-distal LAD stents with diminished flow in the diminutive distal LAD; patent OM2 stent.? 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 2.? Preserved overall LV systolic function, ejection fraction about 55-60%, LVEDP elevated at 34 mmHg. Postprocedure patient was admitted to ICU for further evaluation management. She was started on nitroglycerin infusion and heparin infusion. This morning patient states that she is better although pain is still there. She rates it at 5/10 with minimal radiation at this time. No change in severity of correct 6 of pain on deep breathing or coughing. Denies any other complaints. Review of Systems Review of Systems: All systems reviewed & are unremarkable except as noted in HPI and below (HPI) [facility] Past Medical History Medical History Chest pain Chronic GERD COVID-19 Surgical History Surgical History H/O dilat
[2021-12-28] MEDS: METOPROLOL TARTRATE 25 MG TABLET PO ×2 (10:00→20:27)
[2021-12-28] MEDS: CALCIUM CARBONATE (TUMS) 500 MG (200 MG ELEMENTAL) PO ×2 (10:00→16:59)
[2021-12-28] MEDS: ATORVASTATIN 40 MG TABLET 80 MG PO (10:00)
[2021-12-28] MEDS: PANTOPRAZOLE 40 MG TABLET PO (10:00)
[2021-12-28] MEDS: TICAGRELOR 90 MG TABLET PO ×2 (10:08→20:28)
[2021-12-28] MEDS: ASPIRIN 81 MG ENTERIC TABLET PO (10:08)
--- NOTE | 2021-12-28 10:12 | ECHO_ITS ---
Patient Info Name: Sharon Gomes Age: 76 years : 1945 Gender: Female Ht: 63 in Wt: 145 lbs BSA: 1.72 m2 HR: 63 bpm BP: 146 / 82 mmHg Heart Rhythm: Sinus Rhythm Exam Date: 12/28/2021 1:28 PM Exam Location: [facility] Pulmonary Patient Status: Inpatient Admit Date: 12/27/2021 Staff Ordering Physician: Orlando Lemus MD Retail Branch Manager: Frank Lopez RDCS Attending Provider: Beni Patel MD Referring Physician: Allan HAYNES; Exam Type: CA echo limited w contrast Study Info Indications - coronary artery disease R07.9 - Chest pain, unspecified Limited two-dimensional transthoracic echocardiogram is performed with contrast. Contrast/Agitated Saline Contrast/Ag. Saline: Definity Amount: 20.00 ml Administered By: Frank Lopez RDCS Existing IV Access: Yes IV Access Condition: patent with no signs of infiltration Summary 1. Left ventricular chamber dimension is normal. 2. Left ventricular systolic function is mildly reduced with visually estimated ejection fraction of 50-55%. 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 3. There is mildly increased left ventricular wall thickness. 4. Left ventricular apical thrombus is not clearly identified with Definity Echo contrast administration. 5. The mitral valve has normal leaflets with intact leaflet excursion.. 6. There is mild eccentric posteriorly directed mitral valve regurgitation in which severity may be underestimated due to eccentricity. No mitral valve prolapse. Left Ventricle Left ventricular chamber dimension is normal. Left ventricular systolic function is mildly reduced with visually estimated ejection fraction of 50-55%. 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 There is mildly increased left ventricular wall thickness. Left ventricular apical thrombus is not clearly identified with Definity Echo contrast administration. Right Ventricle Right ventricular chamber dimension is normal. Right ventricular systolic function is normal. Left Atria Left atrial chamber dimension is normal. Right Atria Right atrial chamber dimension is normal. Aortic Valve The aortic valve is not well visualized. Pulmonic Valve The pulmonic valve is not well visualized. Mitral Valve The mitral valve has normal leaflets with intact leaflet excursion.. There is mild eccentric posteriorly directed mitral valve regurgitation in which severity may be underestimated due to eccentricity. No mitral valve prolapse. Tricuspid Valve The tricuspid valve leaflets are normal. There is mild tricuspid valve regurgitation. Pericardium/Pleural The pericardium appears normal. There is no pericardial effusion. Inferior Vena Cava Normal inferior vena cava with <50% collapse upon inspiration consistent with elevated right atrial pressure, 10 mmHg. Aorta The aortic root size at the sinus of Valsalva is normal. There is mild aortic atherosclerosis. Tricuspid Valve Name Value Normal Estimated PAP/RSVP
--- NOTE | 2021-12-28 12:38 | ECG_ITS ---
Measurements Intervals [place] Rate: 65 P: 55 ME: 147 QRS: 3 QRSD: 93 T: 51 QT: 482 QTc: 504 Interpretive Statements SINUS RHYTHM BORDERLINE R WAVE PROGRESSION, ANTERIOR LEADS INFERIOR INFARCT, PROBABLY RECENT ST-T WAVE ABNORMALITY IN ANTERIOR LEADS- CONSIDER ISCHEMIA BASELINE ARTIFACT- V4 ABNORMAL ECG COMPARED TO ECG 12/27/2021 19:47:03 NO SIGNIFICANT CHANGES Electronically Signed On 12-28-2021 14:56:31 CDT by Yoni Escobar D.O.
[2021-12-28 13:11] LABS: Partial Thromboplastin Time 88.4 SECONDS (22.3-36.8)
[2021-12-28] MEDS: ONDANSETRON INJ 4 MG/2 ML VIAL (13:31)
[2021-12-28] MEDS: PERFLUTREN LIPID MICROSPHERES 1.5 ML VIAL DILUTED TO 10 ML TOTAL VOLUME IV PUSH (13:34)
--- NOTE | 2021-12-28 13:35 | IVDEFINITY ---
Prior to administration of IV Definity the patient was educated on the risks and benefits of the imaging enhancing agent including potential adverse side effects. The patient verbalized understanding. Allergies were verified. No exclusion criteria were identified and at least one of the following inclusion criteria were met: 1) physician request, 2) patient technically difficult to image (per the [place] [employer]chocardi[employer] guidelines of two or more segments not discernable within the apical view), or 3) questionable left ventricular function. ?
--- NOTE | 2021-12-28 16:15 | PM.PNCARD ---
Progress Note: A&P Assessment and Plan (1) ST elevation VA (STEMI): Code(s): I21.3 - ST elevation (STEMI) myocardial infarction of unspecified site Status: Acute Assessment and Plan: Patient is status post multiple stents recently. She presented to the hospital with recurrent chest discomfort and EKG showed ST segment elevation in the inferior leads with reciprocal ST depression. However, coronary angiogram showed patent stents including RCA stents. Patient will be managed medically and will be continued on dual antiplatelet therapy with aspirin and ticagrelor in addition to other medications including beta kylee, high-dose statin. 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 Discussed various explanations for presentation. Patient clearly had an acute event with elevated troponin and inferior ST elevations most likely reflective of thrombus spontaneously lysed. No evidence for LV apical thrombus although it is conceivable she could have had a thrombus which embolized to coronary artery although this would not be most likely explanation. Monitor troponin for downward trend with repeat in a.m.. Repeat 12 EKG in a.m. Bedside echo reveals mild LV systolic dysfunction with wall motion abnormalities as noted. Will add low-dose LUDWIN-inhibitor lisinopril 2.5 mg daily. Patient is not currently in decompensated heart failure. Transition metoprolol tartrate to succinate once patient has further improved clinically. Continue ICU observation, telemetry. (2) Ischemic cardiomyopathy: Code(s): I25.5 - Ischemic cardiomyopathy Status: Acute Assessment and Plan: Patient currently well compensated. Hemodynamically stable. Maintaining sinus rhythm. Repeat echocardiogram at bedside reveals reduction in EF from 60-65% now 50-55% with dyskinetic apex and apical inferior wall with small aneurysm, akinetic mid inferior, akinesis of the mid anteroseptal and apical lateral castellon. Echo contrast did not reveal LV apical thrombus although patient at risk. At LUDWIN-inhibitor therapy. Transition to metoprolol succinate. (3) Chest pain: Code(s): R07.9 - Chest pain, unspecified Status: Acute Assessment and Plan: Patient has persistent residual chest pain mild in severity. Continue nitroglycerin infusion wean as tolerated monitor symptoms closely. Continue heparin infusion for now. Monitor for signs of bleeding. Trend troponins still slightly increasing. Recheck troponin in a.m.. Repeat 12 lead EKG today reveals improvement in inferior ST elevations. Updated Dr. Patel as to status and Echo findings. (4) Dyslipidemia: Code(s): E78.5 - Hyperlipidemia, unspecified Status: Acute Assessment and Plan: Continue high-dose atorvastatin 80 mg at bedtime goal LDL less than 70. Subjective Date/time seen: Date of service: 12/28/21 12:15 Follow-up for initial concern for inferior ST-elevation VA status post coronary angiogram Patient continues to have mild persistent chest discomfort despite nitroglycerin infusion currently 25 mcg/min. Mild nausea. Denies shortness of breath or headache. Patient mentions having dressing change due to slow ooze saturating bandage which has slowed up considerably. She remains on heparin infusion. Troponin peaked 5.1 thus far. Hemodynamically stable. No bleeding complications post catheterization. Patient family at bedside and discussed with her daughter as well. All questions answered to their satisfaction. Patient required when she revealed to be discharged hopefully tomorrow counseled patient given the circumstances and her presentation that would be ill-advised. She verbalized understanding. Review of Systems Review of Systems: All systems reviewed & are unremarkable except as noted in HPI and below Constitutional: Constitutional: Reports as per HPI and Reports no additional constitutional complaints Eyes: Eyes: Reports as per HPI an
[2021-12-28] MEDS: ACETAMINOPHEN 325 MG TABLET 650 MG PO (16:58)
[2021-12-28 18:57] LABS: Partial Thromboplastin Time 92.2 SECONDS (22.3-36.8)
[2021-12-29] VITALS (17 sets, daily range): BP systolic 75–157; BP diastolic 42–83; PULSE 55–120; RESP 12–28; TEMP 36.6–37.4; O2SAT 93–100
[2021-12-29] MEDS: HEPARIN SOD/D5W 100 UNITS/ML 25,000 UNITS/250 ML BAG 8 UNITS IV CONT ×2 (01:20→18:29)
[2021-12-29 05:01] LABS: Hematocrit 36.6 % (37.0-47.0); Hemoglobin 11.4 g/dL (12.0-15.0); Mean Corpuscular HGB Conc 31.1 g/dl (32-36); Mean Corpuscular Hemoglobin 25.2 pg (26-34); Mean Corpuscular Volume 80.8 fl (80-100); Mean Platelet Volume 9.7 fl (7.4-10.4); Platelet Count Result 204 k/mm3 (150-375); Red Blood Count 4.53 M/mm3 (4.2-5.4); Red Cell Distribution Width 14.8 % (11.5-14.5); White Blood Count 9.3 K/mm3 (4.5-10.0)
[2021-12-29 05:13] LABS: Alanine Aminotransferase 23 U/L (6-35); Albumin Level 3.6 g/dL (3.5-5.1); Alkaline Phosphatase 95 U/L (38-126); Anion Gap 11 mmol/L (8-16); Aspartate Amino Transferase 61 U/L (14-36); Bilirubin,Total 0.6 mg/dL (0.2-1.3); Blood Urea Nitrogen 12 mg/dL (7-17); Calcium 8.3 mg/dL (8.4-10.2); Carbon Dioxide 22 mmol/L (22-30); Chloride 102 mmol/L (98-107); Estimated CRCL calculation 50 ml/min; Estimated Glomerular Filt Rate > 60; Glucose 120 mg/dL (65-110); Magnesium 1.8 mg/dL (1.6-2.3); Partial Thromboplastin Time 92.7 SECONDS (22.3-36.8); Potassium 3.8 mmol/L (3.4-5.0); Sodium 135 mmol/L (137-145)
--- NOTE | 2021-12-29 08:00 | ECG_ITS ---
Measurements Intervals [place] Rate: 68 P: 18 CA: 146 QRS: -16 QRSD: 91 T: 259 QT: 486 QTc: 518 Interpretive Statements SINUS RHYTHM BORDERLINE R WAVE PROGRESSION, ANTERIOR LEADS INFERIOR INFARCT, PROBABLY RECENT T WAVE ABNORMALITY IN ANTEROLATERAL LEADS- CONSIDER ISCHEMIA ABNORMAL ECG COMPARED TO ECG 12/28/2021 13:04:04 T WAVE ABNORMALITY IS MORE SIGNIFICANT Electronically Signed On 12-29-2021 8:38:48 CDT by Yoni Escobar D.O.
--- NOTE | 2021-12-29 08:33 | WPDINTPN ---
Progress Note: A&P Assessment and Plan (1) ST elevation (STEMI) myocardial infarction: Code(s): I21.3 - ST elevation (STEMI) myocardial infarction of unspecified site Status: Acute Assessment and Plan: Patient has history of recent non STEMI requiring multiple stent placement at [facility] on 12/24 and presented with chest pain along with ST segment elevation in inferior leads 9/9 Status post cardiac catheterization which showed 1. Patent recently placed? multiple stents in ostial-distal RCA; patent proximal mid-distal LAD stents with diminished flow in the diminutive distal LAD; patent OM2 stent.? 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 2.? Preserved overall LV systolic function, ejection fraction about 55-60%, LVEDP elevated at 34 mmHg. chest pain appears to have completely resolved. I will wean off nitroglycerin infusion continue heparin infusion as per Cardiology recommendations ICU telemetry monitoring Patient had recent echo which was reviewed Continue aspirin statin Brilinta beta-kyele (2) Chronic GERD: Code(s): K21.9 - Gastro-esophageal reflux disease without esophagitis Status: Acute Assessment and Plan: Continue PPI and p.r.n. Tums (3) Dyslipidemia: Code(s): E78.5 - Hyperlipidemia, unspecified Status: Acute Assessment and Plan: Continue statin (4) Elevated serum creatinine: Code(s): R79.89 - Other specified abnormal findings of blood chemistry Status: Acute Assessment and Plan: Patient presented with elevated serum creatinine but level done this morning is normal range. Could be secondary to dehydration Monitor (5) Bleeding: Code(s): R58 - Hemorrhage, not elsewhere classified Status: Acute Assessment and Plan: she continues to ooze from the catheterization puncture site. hemoglobin has been stable she is on heparin and dual antiplatelet therapy cardiology aware of this issue pressure dressing is on continue monitor. I anticipate heparin will be discontinued today. Plan DVT prophylaxis -on heparin infusion Stress ulcer prophylaxis -on PPI Nutrition -cardiac diet Code Status - Full Code Subjective Date/time seen: 12/29/21 08:33 Patient states that she is feeling better today as compared to yesterday and denies any complaints. She states her chest pain has resolved. She denies any nausea today. She complains of backache from laying in bed. She was up and using commode earlier. All other systems were reviewed and were negative. She continues to ooze at the site of her catheterization puncture. She is on 15 mcg of nitroglycerin infusion and also on heparin infusion. She is afebrile and other vital signs stable. telemetry shows sinus rhythm Review of Systems Review of Systems: All systems reviewed & are unremarkable except as noted in HPI and below (HPI) Exam Narrative: General: Pt is alert awake and in NAD Lungs/Chest: Trachea central Clear BS B/L, No crackles or wheezing. Cardiac: RRR. Normal S1 S2. No murmurs Circulation: Pedal pulses are intact and symmetrical. Abdomen: Normal bowel sounds.. Soft. NT. ND. Extremities: No clubbing, cyanosis or edema. Warm right groin has dressing at the catheterization puncture site. the dressing is bloody, there is no subcutaneous hematoma or tenderness. There is old bruising in the groin which patient states is from her last catheterization : Neumann in place Neurologic: Follows commands. Moves all 4 extremities PERRL AO x3 Skin: No Rash Objective Data Vital Signs Vital Signs: Vital Signs - 24 hr 12/28/21 09:58 12/28/21 10:00 12/28/21 10:12 Temperature Pulse Rate 68 68 Respiratory Rate Blood Pressure 144/80 H 150/80 H Pulse Oximetry Oxygen Delivery 12/28/21 10:00 12/28/21 10:24
[2021-12-29] MEDS: ASPIRIN 81 MG ENTERIC TABLET PO (10:01)
[2021-12-29] MEDS: ATORVASTATIN 40 MG TABLET 80 MG PO (10:01)
[2021-12-29] MEDS: lisinopriL 2.5 MG TABLET PO (10:01)
[2021-12-29] MEDS: TICAGRELOR 90 MG TABLET PO ×2 (10:02→20:09)
[2021-12-29] MEDS: PANTOPRAZOLE 40 MG TABLET PO (10:02)
[2021-12-29] MEDS: METOPROLOL TARTRATE 25 MG TABLET PO (10:02)
--- NOTE | 2021-12-29 12:29 | PM.PNCARD ---
Progress Note: A&P Assessment and Plan (1) ST elevation [place] (STEMI): Code(s): I21.3 - ST elevation (STEMI) myocardial infarction of unspecified site Status: Acute Assessment and Plan: Patient is status post multiple stents recently. She presented to the hospital with recurrent chest discomfort and EKG showed ST segment elevation in the inferior leads with reciprocal ST depression. However, coronary angiogram showed patent stents including RCA stents. Patient will be managed medically and will be continued on dual antiplatelet therapy with aspirin and ticagrelor in addition to other medications including beta kylee, high-dose statin. Patient was hypertensive in the cardiac cath rn with elevated LVEDP. Discussed various explanations for presentation. Patient clearly had an acute event with elevated troponin and inferior ST elevations most likely reflective of thrombus spontaneously lysed. No evidence for LV apical thrombus although it is conceivable she could have had a thrombus which embolized to coronary artery although this would not be most likely explanation. Monitor troponin for downward trend with repeat in a.m.. Repeat 12 EKG in a.m. -Continue Lisinopril 2.5 mg daily. -Patient is not currently in decompensated heart failure EF 50-55%. -Transition metoprolol tartrate to succinate in AM. -troponin continued to rise as of this morning to 8.990. Given persistence of chest pain yesterday suspect this is reflection of ongoing ischemia that is likely peaked as explained with evolutionary changes on EKG. Clinically she is stable and much improved. Advised will repeat troponin around noon, this returned with downward trend 6.72 which would otherwise have been expected. Therefore, mechanism is consistent with ischemia related to underlying CAD and anatomy as documented. EKG has deep anterolateral T-wave inversions most likely evolutionary changes secondary to acute infarction. Discussed with Dr. Patel to update him on status as who agreed this is all part of evolutionary changes from her infarction. Continue heparin infusion plans to discontinue tomorrow. Monitor access site closely. Losing suspected related to subcutaneous tract bleeding, no hematoma or evidence of active arterial bleed. -will check troponin and EKG in a.m. once again. -transfer to IMU. -Spent 28 minutes in the care of this patient including examination of discussions at bedside with patient, family, colleagues, chart review, medical decision making and documentation. (2) Ischemic cardiomyopathy: Code(s): I25.5 - Ischemic cardiomyopathy Status: Acute Assessment and Plan: Patient currently well compensated. Hemodynamically stable. Maintaining sinus rhythm. Repeat echocardiogram at bedside reveals reduction in EF from 60-65% now 50-55% with dyskinetic apex and apical inferior wall with small aneurysm, akinetic mid inferior, akinesis of the mid anteroseptal and apical lateral castellon. Echo contrast did not reveal LV apical thrombus although patient at risk. At LUDWIN-inhibitor therapy. Transition to metoprolol succinate. (3) Chest pain: Code(s): R07.9 - Chest pain, unspecified Status: Acute Assessment and Plan: Resolved and nitroglycerin has been discontinued. Continue to monitor notify us immediately with any recurrence. Continue heparin infusion for now. Monitor for signs of bleeding. Recheck troponin in a.m.. (4) Dyslipidemia: Code(s): E78.5 - Hyperlipidemia, unspecified Status: Acute Assessment and Plan: Continue high-dose atorvastatin 80 mg at bedtime goal LDL less than 70. Subjective Date/time seen: Date of service: 12/29/21 12:29 Follow-up for inferior STEMI, recent multivessel stent implantation Chest pain resolved yesterday evening, nitroglycerin drip discontinued. Feeling much better overall no chest pain or nausea today. Appetite still diminished but eating better tolerating meals. Sti
--- NOTE | 2021-12-29 16:06 | PC.NURSE ---
This patient, Sharon Gomes, was received from [ICU-9 ] on 12/29/21 at 1548. Patient/family oriented to unit policies and routines
[2021-12-29] MEDS: SODIUM CHLORIDE 0.9% IV 250 ML 500 ML IV CONT ×2 (16:45→17:25)
[2021-12-29 16:49] LABS: Hematocrit 33.1 % (37.0-47.0); Hemoglobin 10.4 g/dL (12.0-15.0); Mean Corpuscular HGB Conc 31.4 g/dl (32-36); Mean Corpuscular Hemoglobin 25.7 pg (26-34); Mean Corpuscular Volume 81.9 fl (80-100); Mean Platelet Volume 9.7 fl (7.4-10.4); Platelet Count Result 219 k/mm3 (150-375); Red Blood Count 4.04 M/mm3 (4.2-5.4); Red Cell Distribution Width 14.8 % (11.5-14.5); White Blood Count 9.4 K/mm3 (4.5-10.0)
[2021-12-29] MEDS: SODIUM CHLORIDE 0.9% IV 500 ML IV CONT (18:30)
[2021-12-29] MEDS: SODIUM CHLORIDE 0.9% IV 1,000 ML 75 ML IV CONT (20:08)
[2021-12-29 21:22] LABS: Appearance Urine Clear (Clear); Bilirubin Urine Negative (Negative); Color Urine Yellow (Yellow); Glucose Urine UA Negative (Negative); Ketones Urine Negative (Negative); Leukocyte Esterase Ur Trace LEU/UL (Negative); Nitrate Urine Negative (Negative); Protein Urine Negative (Negative)
[2021-12-29 21:28] LABS: Add Urine Microscopic? YES; Blood Urine Trace-Intact (Negative); Squamous Epithelial Cell Urine Rare /hpf (Few); WBC Urine 0-3 /hpf
[2021-12-30] VITALS (15 sets, daily range): BP systolic 102–118; BP diastolic 43–62; PULSE 62–88; RESP 12–20; TEMP 36.4–36.8; O2SAT 96–100
[2021-12-30 04:39] LABS: Hematocrit 30.6 % (37.0-47.0); Hemoglobin 9.4 g/dL (12.0-15.0); Mean Corpuscular HGB Conc 30.7 g/dl (32-36); Mean Corpuscular Hemoglobin 25.2 pg (26-34); Mean Platelet Volume 9.9 fl (7.4-10.4); Platelet Count Result 172 k/mm3 (150-375); Red Blood Count 3.73 M/mm3 (4.2-5.4); Red Cell Distribution Width 14.8 % (11.5-14.5); White Blood Count 6.3 K/mm3 (4.5-10.0)
[2021-12-30 04:54] LABS: Alanine Aminotransferase 18 U/L (6-35); Albumin Level 2.7 g/dL (3.5-5.1); Alkaline Phosphatase 79 U/L (38-126); Anion Gap 3 mmol/L (8-16); Aspartate Amino Transferase 32 U/L (14-36); Bilirubin,Total 0.5 mg/dL (0.2-1.3); Blood Urea Nitrogen 17 mg/dL (7-17); Calcium 8.4 mg/dL (8.4-10.2); Carbon Dioxide 24 mmol/L (22-30); Chloride 111 mmol/L (98-107); Estimated CRCL calculation 36 ml/min; Estimated Glomerular Filt Rate 54; Glucose 96 mg/dL (65-110); Magnesium 1.9 mg/dL (1.6-2.3); Potassium 3.8 mmol/L (3.4-5.0); Sodium 138 mmol/L (137-145)
[2021-12-30 04:58] LABS: Partial Thromboplastin Time 100.9 SECONDS (22.3-36.8)
--- NOTE | 2021-12-30 08:00 | ECG_ITS ---
Measurements Intervals [place] Rate: 75 P: 14 NV: 140 QRS: 0 QRSD: 83 T: -75 QT: 422 QTc: 474 Interpretive Statements SINUS RHYTHM INFERIOR INFARCT, PROBABLY RECENT ST-T WAVE ABNORMALITY IN ANTEROLATERAL LEADS- CONSIDER ISCHEMIA BASELINE ARTIFACT- V5 ABNORMAL ECG COMPARED TO ECG 12/29/2021 07:59:55 NO SIGNIFICANT CHANGES Electronically Signed On 12-30-2021 20:51:44 CDT by Yoni Escobar D.O.
[2021-12-30] MEDS: ATORVASTATIN 40 MG TABLET 80 MG PO (09:02)
[2021-12-30] MEDS: ASPIRIN 81 MG ENTERIC TABLET PO (09:03)
[2021-12-30] MEDS: PANTOPRAZOLE 40 MG TABLET PO (09:04)
[2021-12-30] MEDS: TICAGRELOR 90 MG TABLET PO ×2 (09:04→20:28)
[2021-12-30 09:52] LABS: Hematocrit 33.2 % (37.0-47.0); Hemoglobin 10.2 g/dL (12.0-15.0); Mean Corpuscular HGB Conc 30.7 g/dl (32-36); Mean Corpuscular Hemoglobin 25.8 pg (26-34); Mean Corpuscular Volume 84.1 fl (80-100); Mean Platelet Volume 10.1 fl (7.4-10.4); Platelet Count Result 200 k/mm3 (150-375); Red Blood Count 3.95 M/mm3 (4.2-5.4); Red Cell Distribution Width 14.9 % (11.5-14.5); White Blood Count 6.5 K/mm3 (4.5-10.0)
--- NOTE | 2021-12-30 12:43 | PM.PNCARD ---
Progress Note: A&P Assessment and Plan (1) Ischemic cardiomyopathy: Code(s): I25.5 - Ischemic cardiomyopathy Status: Acute (2) ST elevation [place] (STEMI): Code(s): I21.3 - ST elevation (STEMI) myocardial infarction of unspecified site Status: Acute Plan 76-year-old lady with multivessel coronary disease status post multivessel PCI at [facility] recently. Presented here on Thursday evening with acute ST segment elevation ND due to occlusion of the more distal LAD stent. Unfortunately this was a wrap around LAD so the infarction also involved portion of the inferior wall. This will be treated medically going forward as the area of the occlusion was a small segment of the LAD which is rather tortuous as well repeat PCI of this is unlikely to be successful and benefit the patient any longer especially since the vessel has been closed since Thursday. We will gradually resume beta-kylee and LUDWIN-inhibitor or ARB treatment as blood pressure tolerates. I will start with a modest dose of metoprolol. I will repeat an ultrasound of the right groin tomorrow to follow-up on the pseudoaneurysm. Hopefully this relatively small pseudoaneurysm will seal itself Gurwinder Fisher MD [facility] Subjective Date/time seen: Date of service: 12/30/21 12:43 Interval history: 76-year-old woman with: Acute ST segment elevation ND of the distal anterior wall, apex and inferior wall because of occlusion of the mid to distal LAD at the site of recently deployed stent. This is a LAD that wraps around the apex providing significant amount of inferior wall as well resulting in the fact that there were also inferior ST segment elevations at the time of presentation. Site of proximal LAD stent, OM2 stent and/or right coronary stents remain patent. Patient feels well today no further chest pain no shortness of breath no arrhythmias noted on telemetry. Beta-kylee and LUDWIN inhibitor were held over the weekend because of hypotension. Patient had CT of the pelvis and abdomen this morning because our and was concerned of firmness at the puncture site. No evidence of retroperitoneal bleed. 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 Exam Const: General: comfortable and no acute distress Other: Pleasant elderly lady no distress of any kind HENMT: Mouth: Yes moist mucous membranes Eyes: Sclera: sclerae normal Pupils: Equal, round and reactive pupils present Neck: Neck: supple and no JVD Resp: Effort & Inspection: normal respiratory effort Auscultation: clear to auscultation bilaterally Cardio: Rate: regular rate Rhythm: regular rhythm Other: No murmur no gallop GI: GI Palp: Yes Soft to palpation Auscultation: normal bowel sounds Skin: General skin exam: normal color Neuro: Other: Alert and oriented x3 Extrem: Other: Resolving area of hematoma/ecchymosis at femoral artery puncture site. Normal pulse, no audible bruit Objective Data Vital Signs Vital Signs: Vital Signs - 24 hr 12/29/21 14:00 12/29/21 14:00 12/29/21 16:00 Temperature Pulse Rate 66 66 55 L Respiratory Rate 16 12 Blood Pressure 90/58 L Pulse Oximetry 95 97 Oxygen Delivery Room Air 12/29/21 16:00 12/29/21 16:00 12/29/21 17:17 Temperature 36.7 C Pulse Rate 67 66 Respiratory Rate 20 Blood Pressure 75/42 L 81/48 L Pulse Oximetry 94 Oxygen Delivery 12/29/21 16:20 12/29/21 18:00 12/29/21 18:00 Temperature Pulse Rate 64 Respiratory Rate Blood Pressure 76/46 L 82/49 L Pulse Oximetry Oxygen Delivery 12/29/21 20:00 12/29/21 20:00 12/29/21 20:00 Temperature 36.9 C Pulse Rate 64 68 64 Respiratory Rate 16 16 Blood Pressure 88/74 L Pulse Oximetry 97 97 Oxygen Delivery Room Air 12/29/21 22:00 12/29/21 23:48 12/30/21 00:00 Temperature 36.6 C Pulse Rate 67 73 66 Respiratory Rate 16 Blood Pressure 93/52 L Pulse Oximetry 9
[2021-12-30] MEDS: METOPROLOL SUCCINATE EXT REL 12.5 MG TABCR PO (15:30)
[2021-12-31] VITALS (9 sets, daily range): BP systolic 100–114; BP diastolic 50–61; PULSE 63–94; RESP 12–20; TEMP 36.1–36.7; O2SAT 97–100
[2021-12-31 04:47] LABS: Hematocrit 29.6 % (37.0-47.0); Mean Corpuscular HGB Conc 30.4 g/dl (32-36); Mean Corpuscular Hemoglobin 25.4 pg (26-34); Mean Corpuscular Volume 83.6 fl (80-100); Mean Platelet Volume 9.9 fl (7.4-10.4); Platelet Count Result 174 k/mm3 (150-375); Red Blood Count 3.54 M/mm3 (4.2-5.4); Red Cell Distribution Width 14.9 % (11.5-14.5); White Blood Count 5.3 K/mm3 (4.5-10.0)
[2021-12-31] MEDS: ACETAMINOPHEN 325 MG TABLET 650 MG PO (04:51)
[2021-12-31 05:05] LABS: Alanine Aminotransferase 18 U/L (6-35); Albumin Level 2.9 g/dL (3.5-5.1); Alkaline Phosphatase 83 U/L (38-126); Anion Gap 5 mmol/L (8-16); Aspartate Amino Transferase 26 U/L (14-36); Bilirubin,Total 0.6 mg/dL (0.2-1.3); Blood Urea Nitrogen 15 mg/dL (7-17); Calcium 8.6 mg/dL (8.4-10.2); Carbon Dioxide 24 mmol/L (22-30); Chloride 108 mmol/L (98-107); Estimated CRCL calculation 40 ml/min; Estimated Glomerular Filt Rate > 60; Glucose 91 mg/dL (65-110); Magnesium 1.9 mg/dL (1.6-2.3); Potassium 3.7 mmol/L (3.4-5.0); Sodium 137 mmol/L (137-145)
[2021-12-31] MEDS: ASPIRIN 81 MG ENTERIC TABLET PO (09:02)
[2021-12-31] MEDS: ATORVASTATIN 40 MG TABLET 80 MG PO (09:02)
[2021-12-31] MEDS: TICAGRELOR 90 MG TABLET PO (09:02)
[2021-12-31] MEDS: PANTOPRAZOLE 40 MG TABLET PO (09:02)
[2021-12-31] MEDS: METOPROLOL SUCCINATE EXT REL 25 MG TABCR PO (11:08)
--- NOTE | 2021-12-31 13:29 | PM.DS ---
DS: Admitting Diagnosis Discharge Date 12/31/2021 Admitting Diagnosis Chest pain DS: Discharge Diagnosis Discharge Diagnosis (1) ST elevation [place] (STEMI): Code(s): I21.3 - ST elevation (STEMI) myocardial infarction of unspecified site Status: Acute Assessment and Plan: She presented to the hospital with recurrent chest discomfort and EKG showed ST segment elevation in the inferior leads with reciprocal ST depression.? Coronary angiogram showed patent stents including RCA stents and 2 long LAD stents. However, flow in distal LAD which is a very small vessel was sluggish. ? Patient will be managed medically and will be continued on dual antiplatelet therapy with aspirin and ticagrelor in addition to other medications including beta kylee, high-dose statin. She has not had recurrence of chest pain and is chest pain free today. Family at the bedside and had long discussion with them regarding findings of her coronary angiogram and plan for management moving forward. All questions were answered to their satisfaction and they verbalized understanding of all information discussed. (2) Ischemic cardiomyopathy: Code(s): I25.5 - Ischemic cardiomyopathy Status: Acute DS: Summary Hospital Course Hospital Course: 76-year-old lady with multivessel coronary disease status post multivessel PCI at [facility] recently. Presented here on Thursday evening with acute ST segment elevation LA due to occlusion of the more distal LAD. Unfortunately this was a wrap around LAD so the infarction also involved portion of the inferior wall. She was systemically anticoagulated with heparin for ~48 hours following this event. The distal LAD stent occlusion will be treated medically going forward as the area of the occlusion was a small segment of the LAD and is rather tortuous. She had postprocedural oozing from her arterial insertion site and was found to have a small pseudoaneurysm found by CT on 12/30/21 which has sealed itself off as it was not seen on arterial doppler performed earlier today. Stable and appropriate for discharge home from the hospital today. Time Spent with Patient Time attestation: Total time spent providing and/or coordinating discharge services: 57 minutes Exam Const: General: comfortable and no acute distress Other: Pleasant elderly lady no distress of any kind HENMT: Mouth: Yes moist mucous membranes Eyes: Sclera: sclerae normal Pupils: Equal, round and reactive pupils present Neck: Neck: supple and no JVD Resp: Effort & Inspection: normal respiratory effort Auscultation: clear to auscultation bilaterally Cardio: Rate: regular rate Rhythm: regular rhythm Other: No murmur no gallop GI: Auscultation: normal bowel sounds Skin: General skin exam: normal color Neuro: Cranial nerves: Yes Equal, round and reactive pupils present Other: Alert and oriented x3 Extrem: Other: Resolving area of hematoma/ecchymosis at femoral artery puncture site. Normal pulse, no audible bruit DS: Data Data Completed and Pending Labs on day of discharge: Labs from last 24 hours 12/31/21 12/31/21 04:30 04:30 WBC 5.3 RBC 3.54 L Hgb 9.0 L Hct 29.6 L MCV 83.6 MCH 25.4 L MCHC 30.4 L RDW 14.9 H Plt Count 174 MPV 9.9 Sodium 137 Potassium 3.7 Chloride 108 H Carbon Dioxide 24 Anion Gap 5 L BUN 15 Creatinine 0.90 Estim Creat Clear Calc 40 Estimated GFR > 60 Glucose 91 Calcium 8.6 Magnesium 1.9 Total Bilirubin 0.6 AST 26 ALT 18 Alkaline Phosphatase 83 Total Protein 5.0 L Albumin 2.9 L Preliminary micro results at discharge 12/29/21 20:30 Blood Culture - Preliminary Blood 12/29/21 20:30 Blood Culture - Preliminary Blood Discharge Plan Discharge Consulting providers: Art Gutierrez ; Orlando Lemus ; Gurwinder Fisher ; Yoni Escobar ; Eric Campbell V. Discharging Clinician: Dulce
[2022-01-01 08:30] VITALS: BP 140/67; PULSE 63; RESP 16; TEMP 36.4; O2SAT 97
[2022-01-01 12:00] VITALS: BP 123/57; PULSE 59; RESP 16; TEMP 36.2; O2SAT 98
== END 2021-12-31 15:40 | disposition home or self-care (01) | DRG 281 ==
LOC: ANHED 19:01 → ANHICU 19:56 → ANHIMU 12-29 15:38
PROVIDERS: Internal Medicine; Internal Medicine Cardiovascular Disease; Specialist; Admitting Provider Internal Medicine Cardiovascular Disease; Emergency Provider Emergency Medicine; PCP Internal Medicine; Visit Provider Nurse Practitioner
PROC: 4A023N7 Measurement of Cardiac Sampling and Pressure, Left Heart, Percutaneous Approach (ICD-10-PCS; CPT 93452; principal; 2021-12-27 19:20)
PROC: 4A023N7 Measurement of Cardiac Sampling and Pressure, Left Heart, Percutaneous Approach (ICD-10-PCS; 2021-12-27 19:20)
DX: I21.19 ST elevation (STEMI) myocardial infarction involving other coronary artery of inferior wall (principal); T81.718A Complication of other artery following a procedure, not elsewhere classified, initial encounter; I72.4 Aneurysm of artery of lower extremity; I21.02 ST elevation (STEMI) myocardial infarction involving left anterior descending coronary artery; I25.41 Coronary artery aneurysm; I25.5 Ischemic cardiomyopathy; I25.10 Atherosclerotic heart disease of native coronary artery without angina pectoris; K21.9 Gastro-esophageal reflux disease without esophagitis; E78.5 Hyperlipidemia, unspecified; E86.0 Dehydration; Z95.5 Presence of coronary angioplasty implant and graft; Z86.16 Personal history of COVID-19; Z98.1 Arthrodesis status; Z87.891 Personal history of nicotine dependence
CPT/HCPCS: 36415; 74177; 80053; 80061; 81001; 83735; 84484; 85025; 85027; 85610; 85730; 86850; 86900; 86901; 87040; 93005; 93308; 93458; 93926; 99291; A9270; C1760; C1887; C1894; C8924; G0269; J1644; J2250; J2270; J2405; J3010; J7030; J7040; J7050; Q9957; Q9967

== ENCOUNTER → 2022-01-31 14:52 | Outpatient (CLI) | payer MEDICARE, OTHER, SELFPAY ==
--- NOTE | ~2022-01-31 | MM_ITS ---
EXAMINATION: MM screening ngoc BI w sydni HISTORY: Screening TECHNIQUE: Craniocaudal and mediolateral oblique 3-D tomosynthesis images were obtained and synthetic 2-D images were generated. CAD analysis was submitted and interpreted. COMPARISON: Comparison to multiple prior studies sequentially, with oldest reviewed study dated 09/06. BREAST PARENCHYMAL COMPOSITION: There are scattered areas of fibroglandular density. FINDINGS: There is no evidence of suspicious mass, calcification, or architectural distortion to sugg est malignancy in either breast. There has been no suspicious interval change. IMPRESSION: 1. No mammographic evidence of malignancy. 2. Recommend routine screening mammography in one year. BI-RADS Category 1: Negative Reviewed, dictated and finalized at location A.
== END ==
PROVIDERS: PCP Internal Medicine; Visit Provider Nurse Practitioner Women's Health
DX: Z12.31 Encounter for screening mammogram for malignant neoplasm of breast (principal)
CPT/HCPCS: 77063; 77067

== ENCOUNTER 2022-02-06 11:01 | Outpatient (CLI) | payer MEDICARE, SELFPAY ==
[2022-02-06 11:56] LABS: SARS-CoV-2 RNA PCR Negative (Negative)
== END 2022-02-06 11:02 | disposition home or self-care (01) ==
LOC: CHSLAB 11:03
PROVIDERS: PCP Internal Medicine; Visit Provider Internal Medicine
DX: Z20.822 Contact with and (suspected) exposure to COVID-19 (principal)
CPT/HCPCS: C9803; U0003; U0005

== ENCOUNTER 2022-02-07 11:39 | Outpatient (CLI) | payer MEDICARE, SELFPAY ==
[2022-02-07 11:50] LABS: Basophils Absolute Auto 0.05 K/mm3 (0.00-0.10); Basophils Percent Auto 0.9 % (0.0-1.0); Eosinophils Absolute Auto 0.43 K/mm3 (0.02-0.50); Eosinophils Percent Auto 7.8 % (1.0-6.0); Hematocrit 38.4 % (35.0-42.0); Hemoglobin 11.6 g/dL (11.7-13.8); Immature Granulocyte Absolute 0.02 K/mm3 (0.00-0.00); Immature Granulocyte Percent A 0.4 % (0.0-0.0); Lymphocytes Absolute Auto 1.08 K/mm3 (1.10-4.50); Lymphocytes Percent Auto 19.7 % (18.0-42.0); Mean Corpuscular HGB Conc 30.2 g/dL (32.0-36.0); Mean Corpuscular Hemoglobin 25.2 pg (27.0-31.0); Mean Corpuscular Volume 83.3 fL (78.0-102.0); Mean Platelet Volume 9.5 fl (9.2-11.8); Monocytes Absolute Auto 0.63 K/mm3 (0.10-0.90); Monocytes Percent Auto 11.5 % (2.0-11.0); Neutrophils Absolute Auto 3.3 K/mm3 (1.7-7.2); Neutrophils Percent Auto 59.7 % (50.0-70.0); Platelet Count Result 236 K/mm3 (150-420); Red Blood Count 4.61 M/mm3 (4.20-5.40); Red Cell Distribution Width 15.4 % (11.6-14.4); White Blood Count 5.5 K/mm3 (4.8-10.8)
[2022-02-07 13:00] LABS: Alanine Aminotransferase 33 U/L (14-59); Albumin Level 3.6 g/dL (3.4-5.0); Alkaline Phosphatase 136 U/L (46-116); Anion Gap 7 mmol/L (8-16); Aspartate Amino Transferase 24 U/L (15-37); Bilirubin,Total 0.5 mg/dL (0.00-1.00); Blood Urea Nitrogen 18 mg/dL (7-18); Calcium 9.1 mg/dL (8.5-10.1); Carbon Dioxide 29 mmol/L (21-32); Chloride 105 mmol/L (98-108); Estimated Glomerular Filt Rate 56; Ferritin 87 ng/mL (8-252); Glucose 95 mg/dL (70-99); Iron 67 ug/dL (50-170); NT Pro B Type Natriuretic Pept 890 pg/mL (0-125); Osmolality Calculated 293 mOsm/kg (285-295); Potassium 4.3 mmol/L (3.5-5.1); Sodium 141 mmol/L (136-145); Total Protein 6.9 g/dL (6.4-8.2)
== END 2022-02-07 11:40 | disposition home or self-care (01) ==
PROVIDERS: PCP Internal Medicine; Visit Provider Internal Medicine
DX: D64.9 Anemia, unspecified (principal); I10 Essential (primary) hypertension; I25.10 Atherosclerotic heart disease of native coronary artery without angina pectoris; I50.9 Heart failure, unspecified
CPT/HCPCS: 36415; 80053; 82728; 83540; 83880; 85025

== ENCOUNTER 2022-05-07 09:30 | Outpatient (RCR) | payer MEDICARE, OTHER, SELFPAY | END 2022-05-07 12:59 | disposition home or self-care (01) | PROVIDERS: PCP Internal Medicine; Visit Provider Specialist | DX: Z95.2 Presence of prosthetic heart valve (principal) | CPT/HCPCS: 93798 ==

== ENCOUNTER 2022-05-30 16:28 | Observation (INO) | payer MEDICARE, OTHER, SELFPAY ==
[2022-05-30] VITALS (8 sets, daily range): BP systolic 124–161; BP diastolic 69–83; PULSE 59–80; RESP 14–18; TEMP 36.2–36.3; O2SAT 98–100; BMI 22.7
--- NOTE | ~2022-05-30 | XR_ITS ---
EXAMINATION: XR chest 2V DATE: 05/30/2022 17:09 INDICATION: Chest pain TECHNIQUE: PA and lateral views of the chest were obtained. COMPARISON: Chest radiograph and CT dated 12/13/21 FINDINGS: Mild biapical pleural-parenchymal scarring. No other airspace opacities, pulmonary edema, pleural eff usion or pneumothorax. The cardiomediastinal silhouette is normal. Atherosclerotic coronary artery ca lcifications and coronary artery stenting. Mild S-shaped curvature of the thoracolumbar spine with mo derate to severe spondylosis. IMPRESSION: 1. No acute cardiopulmonary disease. Reviewed, dictated and finalized at location A. SPLITTER
--- NOTE | 2022-05-30 16:32 | ECG_ITS ---
Measurements Intervals [place] Rate: 63 P: 61 [place]: 165 QRS: 40 QRSD: 84 T: -1 QT: 406 QTc: 417 Interpretive Statements SINUS RHYTHM POSSIBLE LEFT ATRIAL ENLARGEMENT [-0.1mV P WAVE IN V1/V2] NONSPECIFIC T-WAVE ABNORMALITY COMPARED TO ECG 12/30/2021 15:24:09 NO SIGNIFICANT CHANGES Electronically Signed On 05-31-2022 19:40:41 [employer] by Joslyn Cooper M.D.
[2022-05-30 16:48] LABS: Basophils Absolute Auto 0.1 K/mm3 (0.0-0.1); Basophils Percent Auto 0.7 % (0.2-1.2); Eosinophils Absolute Auto 0.4 K/mm3 (0-0.3); Eosinophils Percent Auto 5.5 % (0-4.4); Hematocrit 37.3 % (37.0-47.0); Hemoglobin 11.5 g/dL (12.0-15.0); Immature Granulocyte Absolute 0.02 K/mm3 (0.00-0.031); Immature Granulocyte Percent A 0.3 % (0-0.5); Lymphocytes Absolute Auto 1.46 K/mm3 (0.9-3.2); Lymphocytes Percent Auto 21.6 % (18.3-44.2); Mean Corpuscular HGB Conc 30.8 g/dl (32-36); Mean Corpuscular Hemoglobin 25.5 pg (26-34); Mean Corpuscular Volume 82.7 fl (80-100); Mean Platelet Volume 9.4 fl (7.4-10.4); Monocytes Absolute Auto 0.8 K/mm3 (0.1-0.6); Monocytes Percent Auto 11.2 % (2.6-8.5); Neutrophils Absolute Auto 4.1 K/mm3 (1.3-6.7); Neutrophils Percent Auto 60.7 % (45.5-73.1); Platelet Count Result 234 k/mm3 (150-375); Red Blood Count 4.51 M/mm3 (4.2-5.4); Red Cell Distribution Width 15.9 % (11.5-14.5); White Blood Count 6.8 K/mm3 (4.5-10.0)
[2022-05-30 16:59] LABS: INR 1.1; Partial Thromboplastin Time 28.4 SECONDS (22.3-36.8); Prothrombin Time 13.7 Seconds (11.1-14.7)
[2022-05-30 17:01] LABS: Alanine Aminotransferase 30 U/L (6-35); Albumin Level 4.1 g/dL (3.5-5.1); Alkaline Phosphatase 141 U/L (38-126); Anion Gap 4 mmol/L (8-16); Aspartate Amino Transferase 41 U/L (14-36); Bilirubin,Total 0.4 mg/dL (0.2-1.3); Blood Urea Nitrogen 21 mg/dL (7-17); Calcium 9.2 mg/dL (8.4-10.2); Carbon Dioxide 27 mmol/L (22-30); Chloride 106 mmol/L (98-107); Estimated CRCL calculation 36 ml/min; Estimated Glomerular Filt Rate 54; Glucose 96 mg/dL (65-110); Lipase 45 U/L (23-300); Potassium 4.3 mmol/L (3.4-5.0); Sodium 137 mmol/L (137-145)
[2022-05-30 17:13] LABS: Troponin I < 0.012 ng/mL (0.000-0.034)
--- NOTE | 2022-05-30 18:02 | ED.CHESTPAIN ---
HPI - Chest Pain General Chief Complaint: Chest Pain Stated Complaint: chest pains- last night Time Seen by Provider: 05/30/22 17:39 Source: patient Mode of arrival: ambulatory Limitations: no limitations History of Present Illness HPI narrative: 76-year-old with a history of CAD s/p 5 stents December 22, 2021 here with the complaints of 2 days history of retrosternal chest pain mostly at night. She denied any shortness of breath or nausea or diaphoresis with the pain. She presently has no pain. MD complaint: chest pain Pertinent past history: coronary artery disease Onset (ago): day(s) (2) Timing of current episode: episodic Prior episodes: Yes Onset: during rest Pain location: substernal Pain radiation: none Severity: moderate Quality: heaviness Relieving factors: nothing Exacerbating factors: nothing Related Data Home Medications Medication Instructions Recorded Confirmed ticagrelor 90 mg tablet (Brilinta) 90 mg PO Q12H 12/27/21 12/27/21 Allergies Allergy/AdvReac Type Severity Reaction Status Date / Time amoxicillin [From Augmentin] Allergy Unknown Verified 05/30/22 17:27 ciprofloxacin [From Cipro] Allergy Unknown Verified 05/30/22 17:27 clarithromycin [From Biaxin] Allergy Unknown Verified 05/30/22 17:27 clavulanic acid Allergy Unknown Verified 05/30/22 17:27 [From Augmentin] cyclobenzaprine Allergy Unknown Verified 05/30/22 17:27 [From Flexeril] dexamethasone Allergy Unknown Verified 05/30/22 17:27 levofloxacin [From Levaquin] Allergy Unknown Verified 05/30/22 17:27 naproxen [From Aleve] Allergy Unknown Verified 05/30/22 17:27 Penicillins Allergy Unknown Verified 05/30/22 17:27 ropinirole Allergy Unknown Verified 05/30/22 17:27 sulfamethoxazole Allergy Unknown Verified 05/30/22 17:27 [From Bactrim] trimethoprim [From Bactrim] Allergy Unknown Verified 05/30/22 17:27 Review of Systems Review of Systems: All systems reviewed & are unremarkable except as noted in HPI and below Constitutional: Constitutional: Reports no additional constitutional complaints Eyes: Eyes: Reports no additional eye complaints ENT: Reports system reviewed and no additional complaints, except as documented Cardiovascular: Cardiovascular: Reports no additional cardiovascular complaints Respiratory: Respiratory: Reports no additional respiratory complaints Musculoskeletal: Musculoskeletal: Reports no additional musculoskeletal complaints Neurologic: Reports system reviewed and no additional complaints, except as documented PMFSH Past Medical History Medical History Chest pain Chronic GERD COVID-19 Surgical History Surgical History H/O dilation and curettage History of back surgery Fusion of L4 and 5 History of cataract extraction Family History Family History Father Cancer Mother Generalized anxiety disorder Social History Social History Social History: The patient lives with her who has dementia. The patient takes care of her . She has 3 children. Her 3 children are the durable power environmental attorney for healthcare. 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 Patient used to smoke over 30 years ago. No alcohol marijuana or illicit drugs. Code status full code Smoking packs per day: 0.5 Smoking cigarettes per day: 10.0 Years smoked: 27 Smoking pack-years: 13.50 Smoking status: Former smoker Alcohol intake: never Substance use: never Substance use type: does not use Spiritual care concerns: No Exam Narrative: GENERAL: Well-appearing, well-nourished, and in no acute distress. HEAD: Normocephalic, atraumatic. EYES: PERRLA and EOMI. NECK: Supple. CHEST: Clear to auscultation. No respiratory distress. HEART: Regular rate and rhythm. No murmur heard. No
--- NOTE | 2022-05-30 18:45 | PM.IMHP ---
H&P: HPI History of Present Illness Date/Time: 05/30/22 18:45 Chief Complaint: Chest pain. Narrative: This is a pleasant 76-year-old female with severe multivessel coronary artery disease with history of non ST-elevation OK in November 2021 status post multivessel PCI to the RCA, LAD, and OM at [facility] on 12/24/2021 who presented to the emergency department from home for evaluation of chest pain. Patient provides the following history. She has been doing well since her OK and completed cardiac rehab. She stays active and does chair yoga several days a week and has not had any chest pain with those activities. She saw Dr. Fisher in the office on 05/15/2022 for a 3 month follow-up and all was well however her metoprolol dose was increased to 25 mg a day. Sometime on Thursday evening she developed some discomfort in the mid chest that she describes as mild pressure. It did not radiate and she denies associated symptoms; specifically she denies associated lightheadedness, dizziness, sweats, nausea, or shortness a breath. She was finally able to fall asleep and she has been without discomfort since that time. She has been compliant with her medications and has not missed a dose. Given her cardiac history she tried to get in touch with her doctor to discuss the symptoms that she was having and when she was unable to do so she decided to come in today for evaluation. Vital signs have been stable since arrival. 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 Initial troponin was negative. Her EKG did not demonstrate any acute ST segment deviations. ED physician discussed the patient's case with Dr. Cooper who felt that the patient should be observed overnight and she is being admitted for close monitoring and Cardiology consultation. Review of Systems Review of Systems: Twelve systems were reviewed. No fever, chills, or sweats. No syncope or near syncope. She denies epigastric and abdominal pain. No bloating or belching. No melena or hematochezia. Except as documented, all other systems were reviewed and are negative. [facility] Past Medical History Medical History (Updated 06/01/22 @ 14:24 by Sherrie Dougherty PA-C) Chronic GERD Coronary artery disease Multivessel CAD, non-STEMI with stenting of the ostial -distal RCA, 2 stents in the LAD, and one in distal OM 12/24/2021 at [facility]. Hypertension Surgical History Surgical History (Updated 06/01/22 @ 14:24 by Sherrie Dougherty PA-C) History of cardiac catheterization History of cataract extraction History of coronary artery stent placement History of dilation and curettage History of lumbar fusion L4-L5. Family History Family History Father Cancer Mother Generalized anxiety disorder Sibling Hypertension Social History Social History Social History: The patient lives with her who has dementia. The patient takes care of her . She has 3 children. Her 3 children are the durable power phd internship for healthcare. 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 Patient used to smoke over 30 years ago. No alcohol marijuana or illicit drugs. Code status full code Smoking packs per day: 0.5 Smoking cigarettes per day: 10.0 Years smoked: 25 Smoking pack-years: 12.50 Smoking status: Former smoker Second hand tobacco smoke exposure: Yes Alcohol intake: never Substance use: never Substance use type: does not use Lack of Transportation: No Lack of Food: Never True Current Housing: I Have Housing Concerned About Future Housing: No Difficulty Paying Gas/Electric Bills: No Difficulty Paying for Meds: No Currently Unemployed: No Education: High School Diploma/GED Difficulty w/ Childcare or Family Care: No Spiritual care concerns: No Meds Home Medications and Allergies Home Medications
[2022-05-30 18:53] LABS: Influenza A QL RT-PCR Negative (Negative); Influenza B QL RT-PCR Negative (Negative); RSV RNA, RT-PCR Negative (Negative); SARS-CoV-2 RNA PCR Negative
[2022-05-30 20:55] LABS: Troponin I < 0.012 ng/mL (0.000-0.034)
--- NOTE | 2022-05-30 21:36 | PC.NURSE ---
This patient, Sharon Gomes, was admitted to IMU Room 212-01. Patient/family oriented to hospital policies and general routines including ID bracelet, bed and alarms, visiting hours, pain management, procedures, bathroom and other care routines, personal items, smoking policy, room service/diet, and visiting hours. Information on how to activate the Rapid Response Team has been discussed. Patient/Family are encouraged to report perceived risks to care and to ask questions if they do not understand what they are told or what they should do.
[2022-05-30] MEDS: LOSARTAN POTASSIUM 50 MG TABLET PO (22:40)
[2022-05-30] MEDS: METOPROLOL SUCCINATE EXT REL 25 MG TABCR PO (22:40)
[2022-05-30] MEDS: TICAGRELOR 90 MG TABLET PO (22:40)
[2022-05-30] MEDS: ATORVASTATIN 40 MG TABLET PO (22:40)
[2022-05-30] MEDS: NITROGLYCERIN OINTMENT 1 INCH DOSE TRANSDERM (22:41)
[2022-05-30 23:19] LABS: Troponin I < 0.012 ng/mL (0.000-0.034)
[2022-05-31] VITALS (8 sets, daily range): BP systolic 125–134; BP diastolic 59–74; PULSE 56–75; RESP 16–20; TEMP 36.5–37.1; O2SAT 96–100
[2022-05-31 01:55] LABS: Troponin I < 0.012 ng/mL (0.000-0.034)
[2022-05-31 04:53] LABS: Hematocrit 34.4 % (37.0-47.0); Hemoglobin 10.8 g/dL (12.0-15.0); Mean Corpuscular HGB Conc 31.4 g/dl (32-36); Mean Corpuscular Hemoglobin 25.5 pg (26-34); Mean Corpuscular Volume 81.3 fl (80-100); Mean Platelet Volume 9.4 fl (7.4-10.4); Platelet Count Result 194 k/mm3 (150-375); Red Blood Count 4.23 M/mm3 (4.2-5.4); Red Cell Distribution Width 15.9 % (11.5-14.5); White Blood Count 5.4 K/mm3 (4.5-10.0)
[2022-05-31 05:06] LABS: Anion Gap 4 mmol/L (8-16); Blood Urea Nitrogen 20 mg/dL (7-17); Calcium 8.5 mg/dL (8.4-10.2); Carbon Dioxide 25 mmol/L (22-30); Chloride 107 mmol/L (98-107); Estimated CRCL calculation 40 ml/min; Estimated Glomerular Filt Rate > 60; Glucose 93 mg/dL (65-110); Magnesium 1.9 mg/dL (1.6-2.3); Sodium 136 mmol/L (137-145)
[2022-05-31] MEDS: ACETAMINOPHEN 325 MG TABLET 650 MG PO (05:39)
[2022-05-31] MEDS: ASPIRIN 81 MG ENTERIC TABLET PO (08:57)
[2022-05-31] MEDS: PANTOPRAZOLE 40 MG TABLET BY MOUTH (08:57)
[2022-05-31] MEDS: TICAGRELOR 90 MG TABLET PO (08:57)
[2022-05-31] MEDS: CHOLECALCIFEROL 1,000 UNITS TABLET 1000 UNITS PO (10:58)
--- NOTE | 2022-05-31 12:50 | PM.DS ---
DS: Admitting Diagnosis Discharge Date 05/31/22 Admitting Diagnosis Chest pain DS: Discharge Diagnosis Discharge Diagnosis (1) Chest pain: Qualifiers: Chest pain type: unspecified Qualified Code(s): R07.9 - Chest pain, unspecified Code(s): R07.9 - Chest pain, unspecified Status: Acute (2) Coronary artery disease: Code(s): I25.10 - Atherosclerotic heart disease of [place] coronary artery without angina pectoris Status: Acute (3) Hypertension: Code(s): I10 - Essential (primary) hypertension Status: Acute (4) Ischemic cardiomyopathy: Code(s): I25.5 - Ischemic cardiomyopathy Status: Acute DS: Summary Hospital Course Hospital Course: Patient is a 76-year-old female with a past medical history of coronary artery disease status post PCI December 2021 on aspirin and Brilinta who presented emergency room for chest pain that occured on . Patient states this pain was midsternal but denies shortness of breath diaphoresis or arm and jaw pain with it. She has not had recurrence of the chest pain since being admitted and is doing well. She is walking around her room and eating without issue. Chest x-ray showed no acute cardiopulmonary disease, troponins x4 were negative, and EKG on my review looked okay but is not uploaded to the computer system at this time. Telemetry overnight showed no alarm reviews. Overall, the patient is doing well in no ACS is suspected at this time. Cardiology was consulted and saw the pt while hospitalized as well. No changes to medications were made, pt is to f/u with her cardiologiest outpt. Time Spent with Patient Time attestation: Total time spent providing and/or coordinating discharge services: 34 minutes Time spent: Greater than 30 minutes Exam Narrative: General: Well developed well nourished patient in NAD HEENT: normocephalic Neck: supple Neuro: Alert and oriented x CV:RRR. Telemetry without abnormal or reviews. No pain to palpation to the anterior chest Resp:CTA Abd: Soft, non distended. No pain to palpation. Positive bowel sounds Extremities: No swelling, erythema, or pain to palpation. DS: Data Data Completed and Pending Labs on day of discharge: Labs from last 24 hours 05/31/22 05/31/22 05/31/22 04:38 04:38 01:14 WBC 5.4 RBC 4.23 Hgb 10.8 L Hct 34.4 L MCV 81.3 MCH 25.5 L MCHC 31.4 L RDW 15.9 H Plt Count 194 MPV 9.4 Immature Gran % (Auto) Neut % (Auto) Lymph % (Auto) [place] % (Auto) Eos % (Auto) Baso % (Auto) Lymph # (Auto) [place] # (Auto) Eos # (Auto) Baso # (Auto) Abs Immat Gran (auto) Absolute Neuts (auto) Absolute Nucleated RBC Nucleated RBC % PT INR APTT Sodium 136 L Potassium 4.0 Chloride 107 Carbon Dioxide 25 Anion Gap 4 L BUN 20 H Creatinine 0.90 Estim Creat Clear Calc 40 Estimated GFR > 60 Glucose 93 Calcium 8.5 Magnesium 1.9 Total Bilirubin AST ALT Alkaline Phosphatase Troponin I < 0.012 Total Protein Albumin Lipase Influenza A (RT-PCR) Influenza B (RT-PCR) RSV (RT-PCR) SARS-CoV-2 RNA (RT-PCR) 05/30/22 05/30/22 05/30/22 22:39 20:07 18:08 WBC RBC Hgb Hct MCV MCH MCHC RDW Plt Count MPV Immature Gran % (Auto) Neut % (Auto) Lymph % (Auto) [place] % (Auto) Eos % (Auto) Baso % (Auto) Lymph # (Auto) [place] # (Auto) Eos # (Auto) Baso # (Auto) Abs Immat Gran (auto) Absolute Neuts (auto) Absolute Nucleated RBC Nucleated RBC % PT INR APTT Sodium Potassium Chloride Carbon Dioxide Anion Gap BUN Creatinine Estim Creat Clear Calc Estimated GFR Glucose Calcium Magnesium Total Bilirubin AST ALT Alkaline Phosphatase Troponin I < 0.012 < 0.012 Total Protein Albumin
--- NOTE | 2022-05-31 12:54 | PM.CNCAR ---
Assessment and Plan Assessment and plan (1) Chest pain: Qualifiers: Chest pain type: unspecified Qualified Code(s): R07.9 - Chest pain, unspecified Code(s): R07.9 - Chest pain, unspecified Status: Acute Assessment and Plan: Atypical chest pain, noncardiac, possibly musculoskeletal. Has resolved. -- Try Tylenol or [id number] PPI if this recurs -- okay for discharge (2) Coronary artery disease: Code(s): I25.10 - Atherosclerotic heart disease of [place] coronary artery without angina pectoris Status: Acute Assessment and Plan: history of non STEMI, multivessel stents, and another STEMI in December. -- Continue aspirin, atorvastatin, Brilinta, metoprolol -- follow-up with Dr. Fisher as scheduled History of Present Illness History of Present Illness Consult date/time: 05/31/22 12:54 Reason For Visit: chest pains Narrative: Sharon Gomes In a 76-year-old female whom I was asked to see at the request Emily for my advice and opinion regarding her chest discomfort in consultation. The patient has a history of multivessel CAD, non-STEMI 11/2021 with stenting of the ostial -distal RCA, 2 stents in the LAD and distal OM 12/24/2021 at [facility]. Normal left ventricular function in November. REadmitted 12/27/2021 with an anterior STEMI. Stents were patent. The distal LAD was diminutive and had new sluggish flow and occlusion of the distal wrap around LAD. Medical tx pursued. Followed by Dr. Fisher. last seen in the office on May 15, 2022 stable. The patient has been doing well, with chair exercise and ADLs, and no particular problems. She is stressed because her has progressive dementia. He fell on Thursday but she did not attempt to get him up ( called a neighbor). On Thursday she started having some mild substernal pressure which persisted and she came to the emergency room yesterday for evaluation. There were no aggravating or relieving factors, nonpleuritic, did not try any Tylenol or PPI, nonpositional. No associated symptoms. Has resolved this morning. Review of Systems Constitutional: Constitutional: Denies fever(s) Eyes: Eyes: Reports no additional eye complaints ENT: Denies epistaxis Cardiovascular: Cardiovascular: Reports chest pain, Denies pedal edema, Denies lightheadedness and Denies dyspnea Respiratory: Respiratory: Denies chest congestion and Denies dyspnea Gastrointestinal: Gastrointestinal: Denies abdominal pain and Denies hematochezia Musculoskeletal: Musculoskeletal: Reports arthralgias ( arthritis of hands and knees) Integumentary/Breasts: Skin/Breast: Reports system reviewed and no additional complaints, except as docu Neurologic: Reports system reviewed and no additional complaints, except as documented, Denies behavioral changes and Denies confusion Psychiatric: Psychiatric: Denies behavioral changes and Denies confusion [facility] Past Medical History Medical History (Updated 05/31/22 @ 13:03 by Joslyn Cooper MD) Chest pain Chronic GERD Coronary artery disease multivessel CAD, non-STEMI with stenting of the ostial -distal RCA, 2 stents in the LAD, and one in distal OM 12/24/2021 at [facility]. COVID-19 Hypertension Surgical History Surgical History H/O dilation and curettage History of back surgery Fusion of L4 and 5 History of cataract extraction Family History Family History Father Cancer Mother Generalized anxiety disorder Sibling Hypertension Social History Social History Social History: The patient lives with her who has dementia. The patient takes care of her . She has 3 children. Her 3 children are the durable power tool mechanic for healthcare. 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 Patient used to smoke over 30 ye
== END 2022-05-31 14:18 | disposition home or self-care (01) ==
LOC: ANHED 18:11 → ANHIMU 20:38
PROVIDERS: Emergency Medicine; Physician Assistant; Admitting Provider Internal Medicine; Emergency Provider Family Medicine; PCP Internal Medicine; Visit Provider Physician Assistant
DX: R07.9 Chest pain, unspecified (principal); I25.10 Atherosclerotic heart disease of native coronary artery without angina pectoris; Z95.5 Presence of coronary angioplasty implant and graft; I10 Essential (primary) hypertension; I25.5 Ischemic cardiomyopathy; Z20.822 Contact with and (suspected) exposure to COVID-19; K21.9 Gastro-esophageal reflux disease without esophagitis; I25.2 Old myocardial infarction; Z87.891 Personal history of nicotine dependence; Z86.16 Personal history of COVID-19; Z79.02 Long term (current) use of antithrombotics/antiplatelets; Z79.82 Long term (current) use of aspirin; Z79.899 Other long term (current) drug therapy
CPT/HCPCS: 36415; 71046; 80048; 80053; 83690; 83735; 84484; 85025; 85027; 85610; 85730; 87637; 93005; 99285; A9270; G0378

== ENCOUNTER → 2023-03-05 10:25 | Outpatient (CLI) | payer MEDICARE, OTHER, SELFPAY ==
--- NOTE | ~2023-03-05 | MM_ITS ---
EXAMINATION: MM screening [facility] BI w sydni HISTORY: Screening mammogram TECHNIQUE: Craniocaudal and mediolateral oblique 3-D tomosynthesis images were obtained and synthetic 2-D images were generated. CAD analysis was submitted and interpreted. COMPARISON: 01/31/2022, 12/31/2020, 12/15/2019 BREAST PARENCHYMAL COMPOSITION: There are scattered areas of fibroglandular density. FINDINGS: No suspicious mass, calcification, or architectural distortion are identified in either kathrine ast to suggest malignancy. There has been no suspicious interval change. IMPRESSION: 1. No mammographic evidence of malignancy. 2. Recommend routine screening mammography in one year. BI-RADS Category 1: Negative Reviewed, dictated and finalized at location A. SLITTER
== END ==
PROVIDERS: PCP Nurse Practitioner Women's Health; Visit Provider Nurse Practitioner Women's Health
DX: Z12.31 Encounter for screening mammogram for malignant neoplasm of breast (principal)
CPT/HCPCS: 77063; 77067

== ENCOUNTER 2024-01-28 07:23 | Outpatient (CLI) | payer MEDICARE, OTHER, SELFPAY ==
--- NOTE | ~2024-01-28 | DEXA_ITS ---
Bone Density Report Name: FRITZ DOMINGO Age: 78 Sex: Female Ethnicity: White Date of : 1945 Indication: postmenopausal osteoporosis; height loss; prior fracture; Referring Provider: Cha Leon Study: Bone densitometry was performed. Exam Date: January 28, 2024 Accession number: [id number] Bone Density: Region BMD T-score Z-score Classification AP Spine(L1, L2, L3) 0.840 -1.6 0.8 Osteopenia Femoral Neck (Left) 0.516 -3.0 -0.9 Osteoporosis Total Hip (Left) 0.641 -2.5 -0.6 Osteoporosis Femoral Neck (Right) 0.448 -3.6 -1.5 Osteoporosis Total Hip (Right) 0.551 -3.2 -1.4 Osteoporosis Femoral Neck Mean 0.482 -3.3 -1.2 Osteoporosis Total Hip Mean 0.596 -2.8 -1.0 Osteoporosis World Health Organization criteria for BMD impression classify patients as: Normal (T-score at or above -1.0), Osteopenia (T-score between -1.0 and -2.5), or Osteoporosis (T-score at or below -2.5). 10-year Fracture Risk: FRAX not reported because: Some T-score for Spine Total or Hip Total or Femoral Neck at or below -2.5 Previous Exams: Region Exam Age BMD T-score BMD Change BMD Change Date g/cm2 vs Baseline vs Previous AP Spine (L1-L3) 01/28/2024 78 0.840 -1.6 0.040 (5.1%)# 0.040 (5.1%)# 10/20/2019 74 0.800 -2.0 Total Hip(Left) 01/28/2024 78 0.641 -2.5 0.009 (1.4%)# 0.009 (1.4%)# 10/20/2019 74 0.632 -2.5 Total Hip(Right) 01/28/2024 78 0.551 -3.2 -0.040 (-6.7%) -0.040 (-6.7%) 10/20/2019 74 0.591 -2.9 *Denotes significance at 95% confidence level, LSC for AP Spine = 0.022 g/cm2, LSC for Total Hip = 0.027 g/cm2 # Denotes dissimilar scan types or analysis methods Clinical Information Provided by Patient: Has had a low trauma fracture Has used the following medications: Vitamin D, Calcium Patient maximum height was 66 Menopause Age: 47 No regular weight bearing exercise Drinks caffeinated beverages Onset of menses at age 15 Number of children 3 Impression: The patient has established osteoporosis, based on the Right Femoral Neck T-score and the existence of a prior fracture. The patient has risk factors, including: previous fracture. No significant bone loss was observed. Discussion: HIGH RISK OF FRACTURE. BONE DENSITY IS UNDESIRABLY LOW AT ONE OR MORE SKELETAL SITES, CONSISTENT WITH POSTMENOPAUSAL OSTEOPOROSIS. This patient's lowest T-score, in a patient who has previously fractured, meets the World Health Organiza
== END 2024-01-28 07:24 | disposition home or self-care (01) ==
LOC: CHSIMG 07:26
PROVIDERS: PCP Internal Medicine; Visit Provider Internal Medicine
DX: Z78.0 Asymptomatic menopausal state (principal); M85.88 Other specified disorders of bone density and structure, other site; M81.0 Age-related osteoporosis without current pathological fracture
CPT/HCPCS: 77080

== ENCOUNTER 2024-03-07 11:20 | Outpatient (CLI) | payer MEDICARE, OTHER, SELFPAY ==
--- NOTE | ~2024-03-07 | XR_ITS ---
Clinical Indication: Cough PA and lateral views of the chest: Comparison: 05/30/2022 Findings: There is focal hazy right upper lobe airspace disease. Left lung clear. Cardiomediastinal silhouette is within normal limits. Bones and soft tissues are unremarkable. Impression: Focal right upper lobe pneumonia. Possible underlying COPD. Reviewed, dictated and finalized at location . ISSIONER OF OFFICIALS Impression: Focal right upper lobe pneumonia. Possible underlying COPD.
[2024-03-07 11:35] LABS: Hematocrit 35.2 % (35.0-42.0); Hemoglobin 11.2 g/dL (11.7-13.8); Mean Corpuscular HGB Conc 31.8 g/dL (32-36); Mean Corpuscular Volume 81.7 fL (78.0-102.0); Mean Platelet Volume 9.4 fl (9.2-11.8); Platelet Count Result 163 K/mm3 (150-420); Red Blood Count 4.31 M/mm3 (4.20-5.40); Red Cell Distribution Width 14.4 % (11.6-14.4); White Blood Count 6.5 K/mm3 (4.8-10.8)
[2024-03-07 12:43] LABS: Band Neutrophils Percent 0 % (0-6); Lymphocytes Absolute Manual 0.65 K/mm3 (1.1-4.5); Lymphocytes Percent Manual 10 % (18-44); Neutrophils Absolute Manual 4.35 K/mm3 (1.7-7.2); Neutrophils Percent Manual 67 % (46-73); Total Cells Counted 100
[2024-03-07 12:44] LABS: Eosinophils Absolute Manual 0.45 K/mm3 (0.02-0.50); Eosinophils Percent Manual 7 % (1-6); Monocytes Absolute Manual 1.04 K/mm3 (0.1-0.90); Monocytes Percent Manual 16 % (3-9); Platelet Estimate Adequate (Adequate)
[2024-03-07 13:04] LABS: Alanine Aminotransferase 27 U/L (14-59); Albumin Level 3.2 g/dL (3.4-5.0); Alkaline Phosphatase 116 U/L (46-116); Anion Gap 9 mmol/L (4-12); Aspartate Amino Transferase 30 U/L (15-37); Bilirubin,Total 0.6 mg/dL (0.00-1.00); Blood Urea Nitrogen 18 mg/dL (7-18); Carbon Dioxide 28 mmol/L (21-32); Chloride 104 mmol/L (98-108); Estimated Glomerular Filt Rate > 60; Glucose 95 mg/dL (70-99); Osmolality Calculated 293 mOsm/kg (285-295); Potassium 4.2 mmol/L (3.5-5.1); Sodium 141 mmol/L (136-145); Total Protein 6.2 g/dL (6.4-8.2)
== END 2024-03-07 11:21 | disposition home or self-care (01) ==
LOC: CHSLAB 11:22
PROVIDERS: PCP Internal Medicine; Visit Provider Internal Medicine
DX: R05.9 Cough, unspecified (principal); R06.2 Wheezing; R68.83 Chills (without fever); J18.9 Pneumonia, unspecified organism
CPT/HCPCS: 36415; 71046; 80053; 85025

== ENCOUNTER 2024-03-10 11:49 | Outpatient (CLI) | payer MEDICARE, OTHER, SELFPAY ==
--- NOTE | ~2024-03-10 | XR_ITS ---
EXAMINATION: XR chest 2V DATE: 03/10/2024 12:03 INDICATION: Pneumonia TECHNIQUE: frontal and lateral views of the chest were obtained. COMPARISON: Chest radiograph dated 03/07/2024 FINDINGS: Mild biapical pleural-parenchymal scarring. No other airspace opacities, pulmonary edema, pleural eff usion or pneumothorax. The cardiomediastinal silhouette is normal. Coronary artery stenting. Mild S-s haped curvature of the thoracic and lumbar spine with moderate to severe spondylosis. IMPRESSION: 1. No acute cardiopulmonary disease. Reviewed, dictated and finalized at location B. ICER
== END 2024-03-10 11:50 | disposition home or self-care (01) ==
PROVIDERS: PCP Internal Medicine; Visit Provider Internal Medicine
DX: J18.9 Pneumonia, unspecified organism (principal); R05.9 Cough, unspecified
CPT/HCPCS: 71046

== ENCOUNTER 2024-04-18 09:56 | Outpatient (CLI) | payer MEDICARE, OTHER, SELFPAY ==
--- NOTE | 2024-04-18 10:03 | ECG_ITS ---
Test Date: 2024-04-18 10:15:01 Measurements Intervals [place] Rate: 60 P: 52 LA: 171 QRS: 67 QRSD: 82 T: 44 QT: 409 QTc: 409 Interpretive Statements SINUS RHYTHM NONSPECIFIC T-WAVE ABNORMALITY No previous ECG available for comparison Electronically Signed On 04-18-2024 18:12:21 PROCUREMENT ANALYST by Lisbet Millard M.D.
== END 2024-04-18 09:57 | disposition home or self-care (01) ==
LOC: CHSLAB 10:00
PROVIDERS: PCP Internal Medicine; Visit Provider Nurse Anesthetist, Certified Registered
DX: Z01.818 Encounter for other preprocedural examination (principal)
CPT/HCPCS: 93005

== ENCOUNTER 2024-09-03 18:52 | Emergency (ER) | payer MEDICARE, OTHER, SELFPAY ==
[2024-09-03 18:52] VITALS: BP 113/61; PULSE 70; PULSE 86; RESP 18; TEMP 36.2; TEMP 36.4; O2SAT 100; O2SAT 95
--- OUTSIDE RECORDS SUMMARY | 2024-09-03 18:54 | XMS_ITS | Clinical Summary ---
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[employer] Gender Identity Not on file Sexual Orientation Not on file Plan of Treatment Health Maintenance Due Date Last Done Comments Hepatitis C 10/08/1965 DTaP, Tdap and Td Vaccines ( 1 - Tdap) 10/08/1966 Pneumococcal Vaccine: 50+ Ye ars (1 of 1 - PCV) 10/08/1997 Zoster Vaccines (1 of 2) 10/08/1997 Dexa Scan (General) 10/08/2012 RSV Immunization or 60+ Years (1 - 1-dose 75+ series) 10/08/2022 COVID-19 Vaccine (2023-2 5 season) 2023 Meningococcal B Vaccine Aged Out No l onger eligible based on patient's age to complete this topic Meningococcal Vaccine Aged Out No natasha arpita eligible based on patient's age to complete this topic RSV Immunizations Under 20 Months Aged Out No longer eligible based on patient's age to complete this topic
--- OUTSIDE RECORDS SUMMARY | 2024-09-03 18:54 | XMS_ITS | Data Portability ---
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 We previously saw her in July and did a cortisone injection. This only helped a couple of days. She has persistent symptoms in her thumb, especially pain and weakness with gripping. She wants to learn more surgery and what the down time would involve. She has tenderness at the thumb CMC, also at the MCP joint. Positive grind. No tenderness over the tendons. Stable collateral ligaments. X-rays of the hand were reviewed, demonstrate CMC arthritis We discussed that for CMC arthritis failing conservative management including a cortisone injection, the next step would be to consider CMC arthroplasty with tendon interposition. We discussed the recovery time and surgery. She wants to take some time to think about it, they will call if and when she wants to proceed with surgery. Not available 02/11/2024 00:35:57 04/06/2024 04/06/2024 78-year-old trent burleson presents for follow-up of her left thumb CMC. We did the cortisone injection last time on 02/10/2024. This only helped a minimal amount, lasted less than the previous injection. She has worsening pain, currently rated as 8/10. She has weakness and pain with gripping. She has tenderness palpation over the thumb CMC. Positive grind. Sensation intact to light touch, 2+ radial pulse. X-rays from previously were reviewed, demonstrating [id number] CMC arthritis She has thumb CMC arthritis with failure of conservative management. We discussed the next step would be to do CMC arthroplasty with tendon interposition. Risks, benefits, and alternatives to surgery were discussed with the patient. Risks include but are not limited to pain, stiffness, infection, bleeding, blood clot, injury to other structures including nerves or blood vessels, need for future surgery, and anesthesia risks. We discussed the goal of surgery is to improve symptoms but there is no guarantee of improvement and it is possible the patient's condition is worse after surgery. Patient agreed and would like to proceed. Not available 04/06/2024 16:20:27 05/11/2024 05/11/2024 HPI: 78 year old female presents today for her postop follow up after undergoing left cmc arthroplasty with tendon interposition on April [address] Izquierdo. She is currently 2 weeks post-surgery. States that the LUDWIN bandage that was applied was to tight and caused an abrasion on her pinky also caused it to turn bluish and swell. Her daughter re wrapped the bandage which helped significantly. She rates her pain 10/10 and is taking tylenol for pain. Besides the pain, she reports doing well overall. She has been complaint with nonweightbearing and wearing the splint. Physical Exam: General: Normal appearance. No acute distress. Inspection: Incision is clean dry and intact. No signs or symptoms of infection. Small abrasion on lateral side of 5th digit. Palpation: Nontender with palpitation around the incision site. ROM: Able to do gentle ROM. Sensation: Sensation intact. Assessment & Plan: Sutures were removed and sterri strips were placed. Transition her from splint into a thumb spica brace, may take it off for hygiene. Should avoid submerging hand for another 2 weeks until the incision is full healed. Avoid lifting anything > 2lbs. Unable to take NSAIDs due to blood thinners. Follow Up: 4 weeks. [email or web address] Not available 05/11/2024 14:19:18 06/08/2024 06/08/2024 HPI: 78 year old female presents today for her postop follow up after undergoing left cmc arthroplasty with tendon interposition on April [address] Izquierdo. She is currently 6 weeks post-surgery. Overall doing good, abrasions have resolved. Reports decreased telephone interviewer strength. She rates her pain 0/10. She has been complaint with wearing the brace. Does not want to wear the brace anymore. Physical Exam: General: Normal appearance. No acute distress. Inspection: Incisions is well healed. No signs or symptoms of infection. Minimal swelling. No evidence of abrasions or bruising. Palpation: Nontender with palpitation. ROM: Able to do gentle ROM. Strenghth: Chef Saucier strength is similar to contralateral side. Sensation: Sensation intact. Imaging: Left hand xray reviewed. Xray shows trapeziectomy space and post surgical changes. Assessment & Plan: No longer needs to wear brace. If she starts to experience increase pain or swelling she should go back in the brace and slowly progress coming out of the brace. Activities as tolerated. Home exercises printed out and given to patient to work on ROM and telephone interviewer strength. Did not want formal PT at this time. Continue with ice and elevation for pain and swelling. Unable to take NSAIDs due to blood thinners. Follow Up: 6-7 weeks. Anticipate discharge at this time. [email or web address] Not available 06/08/2024 12:43:34 07/27/2024 07/27/2024 78 year old femjovanna burleson presents today for her postop follow up after undergoing left cmc arthroplasty with tendon interposition on April [address] Izquierdo. Overall doing good, she rates her pain 0/10. She has been working on exercises on her own and states the hand feels stronger but she still struggles with telephone interviewer strength. Physical Exam: Incisions is well healed. No edema. Nontender with palpitation. Able to do gentle ROM. Chef Saucier strength is similar to contralateral side. Sensation intact. At this point we no longer need to see her back for recheck. She can continue with hand exercises to improve telephone interviewer strength. We can see her back as needed for pain. [email or web address] Not available 07/27/2024 11:32:26 Plan of Treatment Reminders Order Date Submit Date Provider Last Modified By Organization Details Last Modified Time Details Appointments None record ed. Lab None record ed. Referral None record ed. Procedures None record ed. Surgeries None record ed. Imaging XR, hand, 3 or more view 025 06/08/[email or web address] [facility] [place], [facility], [place], [address], 5 10:26:41 XR, hand, 3 or more view 024 02/10/20 24 [email or web address] [facility] [place], [address], [place], [address], 4 09:52:09 Medication Orders None record ed. Patient TargetsNo targets recorded. Patient InstructionsNo instructions recorded. Reason for Referral None Reported. Results Created Date Observation Date Name Description Value Unit Range Abnormal Flag Note LastModifiedBy Organization Detail LastModifiedTime 02/10/20 XR, hand, 3 or more view No observ ation record ed. [email or web address] [facility] [place] [address], [place], [address], 02/10/2024 11:39:06 06/08/19 25 XR, hand, 3 or more view No observ ation record ed. [email or web address] [facility] [place] [address], [place], [address], 06/08/2024 12:43:58 Result Notes None recorded. Problems Name Problem SNOMED Code Status Onset Date Resolution Date Notes Provider Name and Address Organization Details Recorded Time Pain of left hand 1166213811765 03 Active 2022 Annita Riggs, KARISSA L null, [employer] 3 10:19:56 Osteoarthr osis of the carpometac arpal joint of the thumb 64265593 Active 2024 Sona Arcos PA-C [address] [place] [address], [place] [address], [place], [address] , [employer] 5 11:04:14 Osteoarthr itis 726675710 Active Not Available [facility] 3 00:51:24 Problem Notes None recorded. Procedures Surgical History Date Name Laterality Status Provider Name and Address Organization Details Recorded Time 5 Hand completed DANYELL Knapp [place] [facility] 05/06/2024 08:54:20 4 Ortho - Cortisone Injection completed Dean Izquierdo MD [address], [address], [place], [address], [facility] 08/05/2023 09:52:55 3 Ortho - Cortisone Injection completed Dean Izquierdo MD [address], [address], [place], [address], [facility] 12/24/2022 22:19:30 Foot Surgery completed Monica Hays [facility] 02/10/2024 11:35:50 Hand completed Monica Hays [facility] 02/10/2024 11:36:05 Imaging Results Imaging Date Name Status LastModified by Organiz ation Details LastModified Time 02/10/2024 XR, hand, 3 or more view completed [email or web address] [facility] [place] [address] [address], [place], [address], 02/10/2024 11:39:06 06/08/2024 XR, hand, 3 or more view completed [email or web address] [facility] [place] [address] [facility] [address], [place], [address], 06/08/2024 12:43:58 Procedure Notes None recorded. Medical Equipment None Reported. Allergies Allergen ID Allergen Name Allergen Category Reaction Reaction Severity Criticality Documentation Date Start Date Code Code System Note Provider Name and Address Organization Details Recorded Time 1040 Product containin g penicilli n (product) medicatio n Not available Not available Not available 06/18/2022 88927 8001 SNOMED Not Available [facility] 3 00:59:28 1041 Levaquin medicatio n other Not available Not available 06/18/2022 04637 2 RxNorm Not Available [facility] 3 00:59:28 1042 ciproflox acin medicatio n Not available Not available Not available 06/18/2022 2551 RxNorm Not Available [facility] 3 00:59:28 1043 Biaxin medicatio n Not available Not available Not available 06/18/2022 87504 9 RxNorm Not Available [facility] 3 00:59:28 1044 Bactrim medicatio n Not available Not available Not available 06/18/2022 86157 9 RxNorm Not Available [facility] 3 00:59:28 1045 Augmentin medicatio n Not available Not available Not available 06/18/2022 78508 2 RxNorm Not Available [facility] 3 00:59:28 Medications Name Sig Start Date Stop Date Status Note LastModified by Organization Details LastModified Time losartan 50 mg tablet TAKE 1 TABLET BY MOUTH EVERY DAY active Not Available Not Available No t Available cyclobenzap rine 10 mg tablet active Not Available Not Available Not Available atorvastati n 80 mg tablet TAKE 1 TABLET BY MOUTH EVERY DAY active Not Available Not Available No t Available prednisone 10 mg tablet 02/01 completed Not Available Not Available Not Available tizanidine 2 mg tablet TAKE 1 TABLET (2 MG) BY ORAL ROUTE EVERY 6-8 HOURS NEEDED NOT TO EXCEED 3 DOSES IN 24 HOURS 08/02 completed Not Available Not Available Not Available Vitamin C 500 mg tablet Take 1000 mg every day by oral route. 2024 active Not Available Not Available Not Avai lable azithromyci n 250 mg tablet TAKE 2 TABLETS BY MOUTH TODAY, THEN TAKE 1 TABLET DAILY FOR 4 DAYS DIRECTED 06/02 completed Not Available Not Available Not Available pravastatin 40 mg tablet 08/02 completed Not Available Not Available Not Available benzonatate 200 mg capsule TAKE 1 CAPSULE BY MOUTH THREE TIMES A DAY NEEDED FOR COUGH active Not Available Not Available No t Available hydrocodone 5 mg-acetamin ophen 325 mg tablet TAKE 1 TABLET BY MOUTH EVERY 6 HOURS active Not Available Not Available No t Available meloxicam 15 mg tablet 03/11 completed Not Available Not Available Not Available bupivacaine HCl 0.5 % (5 mg/mL) injection solution Take 2 mg by injection route. 08/02 completed Not Available Not Available Not Available isosorbide mononitrate ER 30 mg tablet,exte nded release 24 hr 08/02 completed Not Available Not Available Not Available alendronate 70 mg tablet active Not Available Not Available Not Available clonazepam 1 mg tablet active Not Available Not Available Not Available clopidogrel 75 mg tablet TAKE 1 TABLET BY MOUTH EVERY DAY active Not Available Not Available No t Available tramadol 50 mg tablet TAKE 1/2 TO 1 TABLET BY MOUTH EVERY 6 HOURS NEEDED 07/14 completed Not Available Not Available Not Available ondansetron 8 mg disintegrat ing tablet TAKE 1 TABLET BY MOUTH EVERY 8 HOURS NEEDED 08/02 completed Not Available Not Available Not Available hydrocortis one acetate 25 mg rectal suppository UNWRAP AND INSERT 1 SUPPOSITO RY (25 MG TOTAL) INTO THE RECTUM NIGHTLY 02/09 completed Not Available Not Available Not Available hydrocortis one 2.5 % topical cream with perineal applicator 03/11 completed Not Available Not Available Not Available pravastatin 10 mg tablet 03/11 completed Not Available Not Available Not Available Kenalog 10 mg/mL suspension for injection Take 1 mg by injection route. 2023 active [facility]: 0003- 0494- 20 Not Available Not Available Not Available doxycycline monohydrate 100 mg capsule 02/01 completed Not Available Not Available Not Available dexamethaso ne 2 mg tablet 04/03 completed Not Available Not Available Not Available ropinirole 2 mg tablet 02/01 completed Not Available Not Available Not Available pantoprazol e 40 mg tablet,pantera yed release TAKE 1 TABLET BY MOUTH DAILY active Not Available Not Available No t Available losartan 25 mg tablet TAKE 1 TABLET (25 MG TOTAL) BY MOUTH DAILY. 08/02 completed Not Available Not Available Not Available gabapentin 300 mg capsule 02/16 completed Not Available Not Available Not Available hydroxyzine HCl 25 mg tablet 02/01 completed Not Available Not Available Not Available metoprolol succinate ER 25 mg tablet,exte nded release 24 hr TAKE 1 TABLET (25 MG TOTAL) BY MOUTH DAILY. active Not Available Not Available No t Available cefuroxime axetil 500 mg tablet TAKE 1 TABLET BY MOUTH EVERY 12 HOURS active Not Available Not Available No t Available methylpredn isolone 4 mg tablets in a dose pack TAKE 6 TABLETS ON DAY 1 DIRECTED ON PACKAGE AND DECREASE BY 1 TAB EACH DAY FOR A TOTAL OF 6 DAYS 06/02 completed Not Available Not Available Not Available albuterol sulfate HFA 90 mcg/actuati on aerosol inhaler INHALE 2 PUFFS BY MOUTH EVERY FOUR TO SIX HOURS active Not Available Not Available No t Available doxycycline hyclate 100 mg tablet 03/11 completed Not Available Not Available Not Available tobramycin 0.3 %-dexametha sone 0.1 % eye drops,suspe nsion 02/01 completed Not Available Not Available Not Available azithromyci n 500 mg tablet active Not Available Not Available Not Available mirtazapine 7.5 mg tablet TAKE 1 TABLET (7.5 MG) BY ORAL ROUTE ONCE DAILY AT BEDTIME 02/09 completed Not Available Not Available Not Available nitrofurant oin monohydrate /macrocryst als 100 mg capsule TAKE 1 CAPSULE BY MOUTH EVERY 12 HOURS WITH FOOD 02/09 completed Not Available Not Available Not Available omeprazole 40 mg 04/03 completed Not Available Not Available Not Available lidocaine (PF) 10 mg/mL (1 %) injection solution In office injection administe red by the provider 08/02 completed [facility]: 0409- [phone]- [phone] Not Available Not Available Not Available Colcrys 0.6 mg tablet active Not Available Not Available No t Available Brilinta 90 mg tablet TAKE 1 TABLET BY MOUTH TWICE DAILY 08/02 completed Not Available Not Available Not Available ropivacaine (PF) 5 mg/mL (0.5 %) injection solution Take 1 mg by injection route. 2023 active [facility] [phone] -[phone] Not Available Not Available Not Available Shingrix (PF) 50 mcg/0.5 mL intramuscul ar suspension, kit 02/01 completed Not Available Not Available Not Available Paxlovid 300 mg (150 mg x 2)-100 mg tablets in a dose pack TAKE TWO 150 MG TABLETS OF NIRMATREL VIR WITH ONE 100 MG TABLET OF RITONAVIR TWICE DAILY FOR 5 DAYS 03/11 completed Not Available Not Available Not Available Vitals Date Recorded Body height Body mass index (BMI) Body weight Provider Name and Address Organization Details Last Updated DateTime 02/10/2024 160.02 cm 23.6 kg/m2 06067.79 g DANYELL Knapp [facility] [facility] 02/10/2024 11:32:59 Date Recorded Body height Body mass index (BMI) Body weight Provider Name and Address Organization Details Last Updated DateTime 04/06/2024 160.02 cm 23.6 kg/m2 71609.79 g Monica Hays Jovanna [facility] [employer] [facility] 04/06/2024 09:56:10 Date Recorded Body height Provider Name an d Address Organization Details Last Updated DateTime 05/11/2024 160.02 cm Solange Hartmann [facility] [employer] [facility] 05/11/2024 10:34:14 Date Recorded Body height Body mass index (BMI) Body weight Provider Name and Address Organization Details Last Updated DateTime 06/08/2024 160.02 cm 23.6 kg/m2 86507.79 g Monica Hays Jovanna [facility] [facility] 06/08/2024 10:36:20 Date Recorded Body height Body mass index (BMI) Body weight Provider Name and Address Organization Details Last Updated DateTime 07/27/2024 157.48 cm 24.3 kg/m2 09592.79 g Demetra Bloom CNA [facility] [employer] [facility] 07/27/2024 10:53:56 Social History Question Answer Notes LastModified by [employer] Details LastModified Time Tobacco Smoking Status Unknown If Ever Smoked Not Available [facility] 06/18/2022 00:44:10 What Was The Date Of Your Most Recent Tobacco Screening? 02/10/2024 [email or web address] Information not available 02/10/2024 Sex: Unknown Functional Status Question Answer Note LastModified by [employer] Details LastModified Time What is your level of alcohol consumption? None [id number] Information not available 06/18/2022 Mental Status None recorded. Family History Relationship Description Onset Age of this Age Resolved Age Notes LastModified by Organization Details LastModified Time Paternal Grandfather Heart disease [email or web address] Not available 2023 11:34:10 Father History of malignant neoplasm [email or web address] Not available 2023 11:34:51 Maternal Grandmother Hypertensive disorder Not available 2023 11:35:12 Maternal Grandmother Family history of stroke [email or web address] Not available 2023 11:35:21 Medical History Condition Response ARTHRITIS Y HEART DISEASE/HEART PROBLEMS Y OSTEOPOROSIS Y CORONARY ARTERY DISEASE (CAD) Y USE OF BLOOD THINNERS Y Gynecological HistoryNo gynecological history recorded. Obstetrics History GPAL:G 0 P 0 0 0 0 Past Encounters Encounter ID Performer Location Encounter Start Date Encounter Closed Date Diagnosis/Indication Diagnosis SNOMED-CT Code Diagnosis ICD10 Code Diagnosis Note [id number] Eduardo Borden MD [facility] [place] [address] [place] [address] 06/19/2020 00:00:00 06/19/2020 11:57:31 [id number] Eduardo Borden MD [facility] [place] [address] [place] [address] 08/03/2020 00:00:00 08/03/2020 10:33:47 [id number] Eduardo Borden MD [facility] [place] [address] [place] [address] 09/11/2020 00:00:00 09/11/2020 12:47:26 [id number] Eduardo Borden MD [facility] [place] [address] [place] [address] 11/27/2020 00:00:00 11/27/2020 11:18:13 [id number] Eduardo Borden MD [facility] [place] [address] [place] [address] 01/08/2021 00:00:00 01/08/2021 12:33:23 [id number] Eduardo Borden MD [facility] [place] [address] [place] [address] 06/18/2021 00:00:00 06/18/2021 17:13:23 [id number] Eduardo Borden MD [facility] [place] [address] [place] [address] 03/11/2022 00:00:00 03/11/2022 10:06:30 [id number] Dean Izquierdo MD [facility] [place] [address] [place] [address] 12/23/2022 10:13:03 12/23/2022 10:36:32 Pain of left hand 3546398329 18742 M79.029 [id number] Dean Izquierdo MD [facility] [place] [address] [place] [address] 08/05/2023 09:22:28 08/05/2023 09:37:37 Pain of left hand 5015066696 32457 M79.929 [id number] Dean Izquierdo MD [facility] [place] [address] [place] [address] 02/10/2024 11:10:43 02/10/2024 12:07:13 Pain of left hand 2427977090 19443 M79.221 [id number] Dean Izquierdo MD [facility] [place] [address] [place] [address] 04/06/2024 09:53:41 04/06/2024 10:17:12 Pain of left hand 3071451069 12714 M79.642 Osteoarthritis 835953439 M19.446 [id number] Dean Izquierdo MD [facility] [place] [address] [place] [address] 05/11/2024 10:29:57 05/11/2024 11:05:50 Pain of left hand 5476001083 90264 M79.642 Postoperative visit 1836 66672 Z48.89 Osteoarthr osis of the carpometacarpal joint of the thumb 44639623 M18.9 [id number] Dean Izquierdo MD [facility] [place] [address] [place] [address] 06/08/2024 10:34:48 06/08/2024 11:00:22 Pain of left hand 6171974789 37896 M79.642 Osteoarthr osis of the carpometacarpal joint of the thumb 82608684 M18.9 Postoperative visit 1836 31471 Z48.89 [id number] Dean Izquierdo MD [facility] [place] [address] [place] [address] 07/27/2024 10:49:15 07/27/2024 11:37:56 Pain of left hand 6333090358 16625 M79.642 Osteoarthr osis of the carpometacarpal joint of the thumb 51542355 M18.9 Health Concerns Section Related Observation LastModified by Organization Detai ls LastModified Time None Recorded Concern Status LastModified by Organization Details LastModified Time None Recorded Advance Directives Directive None Recorded Payers Encounter Date Sequence Insurance Name Policy Number Policy Jenkins Covered Member ID Jenkins Member ID Guarantor Name 02/10/2024 1 [place] Sharon L Osterbuhr [id number] Sharon Osterbuhr 02/10/2024 2 [employer] (MEDICARE SUPPLEMENT) Sharon L Osterbuhr [id number] Sharon Osterbuhr 04/06/2024 1 [place] Sharon L Osterbuhr [id number] Sharon Osterbuhr 04/06/2024 2 [employer] [place] (MEDICARE SUPPLEMENT) Sharon L Osterbuhr [id number] Sharon Osterbuhr 05/11/2024 1 [place] Sharon L Osterbuhr [id number] Sharon Osterbuhr 05/11/2024 2 [employer] [place] (MEDICARE SUPP[place]) Sharon L Osterbuhr [id number] Sharon Osterbuhr 06/08/2024 1 [place] Sharon L Osterbuhr [id number] Sharon Osterbuhr 06/08/2024 2 [employer] [place] (MEDICARE SUPPLEMENT) Sharon L Osterbuhr [id number] Sharon Osterbuhr 07/27/2024 1 [place] Sharon L Osterbuhr [id number] Sharon Osterbuhr 07/27/2024 2 [employer] (MEDICARE SUPPLEMENT) Sharon L Ostelonny [id number] Sharon Gomes OBGyn Episode No OBEpisode recorded.
--- OUTSIDE RECORDS SUMMARY | 2024-09-03 18:55 | XMS_ITS | Encounter Summary ---
Author Organization [facility] Healthcare Address [address] [place] [address] Care Team Providers Care Staffing Analyst Name Role Phone Cha Leon MD Primary Care Provider + [phone] Encounter Details Date Type Department Care Team (Late Contact Info) Description 02/03/[address] [address] [address] Social History Tobacco Use Types Packs/Day Years Used Date Smoking Tobacco: Former Smokeless Tobacco: Never Alcohol Use Standard Drinks/Week Comments Yes 0 (1 standard drink = 0.6 oz pur e alcohol) AUDIT-C Answer Date Recorded Q1: How often do you have a drink containing alc ohol? 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 Gender Identity Not on file Sexual Orientation Not on file documented as of this encounter Plan of Treatment Upcoming Encounters Date Type Department Care Team (Late Contact Info) Description 09/28/2024 9:30 AM CDT Hospital Encounter [address] [address] Mary Fishman MD [address] [place] [address] [place] [address] 09/28/2024 9:30 AM CDT - 09/28/2024 10:00 AM CDT Surgery [facility] [address] [place] [address] Mary Fishman MD [address] [place] [address] COLONOSCOPY Scheduled Procedures Name Priority Associated Diagnoses Date/Ti me COLONOSCOPY Personal history of colonic polyps Encounter for screening colonoscopy 09/28/2024 9:30 AM CDT documented as of this encounter Visit Diagnoses Not on filedocumented in this encounter Additional Health Concerns Infection Onset Date Last Indicated Resolved Time COVID: Recovered Comment:Palomo, bedside RN, received a copy of the 10.30.21 positive COVID result and will fax to [phone] for it to be scanned under the media tab. .6.22 [facility] COVID test was pre-procedural. Routine retesting not recommended for 120 days or expiration date of 03.10.22 without an infectious disease physician consult. Zane Cullen 9.10.09 Added based on recent COVID infection. 11/10/2021 12/24/2021 03/10/2022 3:[address] COVID: Recovered Comment:Added based on recent COVID infection. 12/24/2021 03/12/2022 03/24/2022 3:[address] documented as of this encounter Care Teams Staffing Analyst Relationship Specialty Start Date End Date Cha Leon MD [address] [place] [address] PCP - General 06/27/16 documented as of this encounter
--- OUTSIDE RECORDS SUMMARY | 2024-09-03 18:55 | XMS_ITS | Clinical Summary ---
Author Organization [facility] Address [address] [place] [address] Care Team Providers Care Fusion Juncture Grinder Name Role Phone Cha Leon MD Primary Care Provider Allergies Active Allergy Reactions Criticality Noted Date Comments Naproxen Hives Medium 12/22/2018 Amoxicillin Rash Reaction: Rash, Sulfamethoxazole-Trimethoprim Hives Medium 2018 Ciprofloxacin Hives Medium 12/22/2018 Clarithromycin Rash Reaction: Rash, Levofloxacin Rash Reaction: rash, Penicillins Rash Reaction: Rash, Potassium Rash Reaction: Rash, Ropinirole Rash Medium 12/22/2018 Sulfamethoxazole Rash Reaction: Rash, Trimethoprim Rash Reaction: Rash, Medications cetirizine (ZyrTEC) 10 mg tablet Take 1 tablet (10 mg total) by mouth daily Active cholecalciferol (VITAMIN D-3) 1,000 unit Take 1 tablet/capsule (1,000 Units total) by mouth daily Active coenzyme Q10 400 mg capsule Activ e pantoprazole DR (PROTONIX) 40 mg EC tablet Take 1 tablet (40 mg total) by mouth daily 12/18/19 22 Active hydrocortisone (ANUSOL-HC) 25 mg suppositoryIndi cations:Grade III hemorrhoids Insert 1 suppository (25 mg total) into the rectum nightly 30 suppository 3 06/16/19 23 Active Additional Information Patient not taking.Reported on 06/21/2024 clopidogreL (PLAVIX) 75 mg tablet Take 1 tablet (75 mg total) by mouth daily 90 tablet 3 11/17/19 24 025 Active atorvastatin (LIPITOR) 80 mg tablet TAKE 1 TABLET BY MOUTH EVERY DAY 90 tablet 2 01/22/20 24 Active losartan (COZAAR) 50 mg tablet TAKE 1 TABLET BY MOUTH EVERY DAY 90 tablet 2 01/22/20 24 Active aspirin 81 mg enteric coated tablet TAKE 1 TABLET BY MOUTH EVERY DAY 120 tablet 1 03/10/20 24 Active metoprolol XL (TOPROL-XL) 25 mg extended release tablet TAKE 1 TABLET (25 MG TOTAL) BY MOUTH DAILY. 90 tablet 3 05/03/19 25 026 Active Active Problems Problem Noted Date Diagnosed Date Personal history of colonic polyps 12/03/2023 Encounter for screening colonoscopy 12/03/2023 Rectal bleeding 04/01/2022 History of coronary artery stent placement 01/09 Ischemic cardiomyopathy 01/09/2022 CAD (coronary artery disease) 12/24/2021 Coronary artery disease involving capitan grande band heart 0 12/19/2021 Overview (12/19/2021): Added automatically from request for surgery [id number] Osteoarthritis 11/18/2021 Hemorrhoids 02/12/2021 Overview (02/12/2021): Added automatically from request for surgery [id number] Grade III hemorrhoids 12/31/2020 Assessment & Plan (11/18/2021 2:20 PM CDT): anusol HC supps and return prn Assessment & Plan (02/12/2021 12:52 PM CDT): III roids IRC series Assessment & Plan (12/31/2020 2:22 PM CDT): Hi fibver diet with miralax daily and return prn. Hx of colonic polyp 11/08/2018 Overview (11/08/2018): Added automatically from request for surgery [id number] Osteoporosis 07/27/2013 Overview (07/23/2016): Osteoporosis Encounters Date Type Department Care Team Description 08/19/2024 Telephone [facility] Gastroenterology at [address] [place] [address] Ashley Finnegan Prep Instructions 06/21/2024 11:45 AM PENSION ADVISER Office Visit [facility] Cardiology at [address] [place] [phone] Gurwinder Fisher MD Ischemic cardiomyopathy (Primary Dx); Coronary artery disease involving capitan grande band coronary artery of capitan grande band heart without angina pectoris; History of coronary artery stent placement from Last 3 Months Immunizations Immunization Administration Dates Next Due Influenza, Trivalent, Preservative Free, Intramu scular 01/19/2012 Surgical History Surgery Date Site/Laterality Comments BACK SURGERY 04/20/1998 - 04/19/1999 back surgery FOOT SURGERY 04/20/1998 - 04/19/1999 foot surgery OTHER SURGICAL HISTORY 04/20/1967 - 04/19/1968 : 12 hr labor OTHER SURGICAL HISTORY 04/20/1969 - 04/19/1970 : 2 hr labor OTHER SURGICAL HISTORY 04/20/1978 - 04/19/1979 : 4 hr labor TUBAL LIGATION BTL COLONOSCOPY 10/25/2013 Medical History Medical History Date Comments Hx Other Medical 2010 Colonoscopy Hyperlipidemia Hyperlipidemia Hx Other Medical 1967 ; Outc ome: 6 lb(s) 6 oz Male Hx Other Medical 1969 ; Outc ome: Female Hx Other Medical 1978 ; Outc ome: Female Clotting disorder Family History Medical History Relation Name Comments Cancer Father Prem Sow Throat cancer Father Prem Sow Throat Can cer; Heart disease Maternal Grandfather None Heart disease Maternal Grandmother None Heart disease; Diabetes Mother's Sister 2 Diabetes m ellitus; Other Mother's Sister 3 Spastic Co natasha; Cancer Other 1 Family history of Cancer; Heart disease Other 2 Family history of Heart disease; Hypertension Paternal Grandfather Frank Sow H ypertension; Heart disease Paternal Grandmother Ev Sow H eart disease; Relation Name Status Comments Father Prem Sow Maternal Grandfather None Maternal Grandmother None Mother's Sister 1 Alive Mother's Sister 2 Mother's Sister 3 Other 1 Other 2 Paternal Grandfather Frank [place] Paternal Grandmother Ev Sow Alive Social History Tobacco Use Types Packs/Day Years Used Date Smoking Tobacco: Former Cigarettes 1 965 - 1997 Passive Smoke Exposure: Past Smokeless Tobacco: Never Tobacco Cessation:Counseling Given: Not Answered Alcohol Use Standard Drinks/Week Comments Yes 0 (1 standard drink = 0.6 oz pur e alcohol) AUDIT-C Answer Date Recorded Frequency of Alcohol Consumption Not on file 04/23/2023 Q2: How many drinks containi ng alcohol do you have on a typical day when you are drinking? Patient does not drink Frequency of Binge Drinking Not on file 07/2023 PHQ-2 Answer Date Recorded PHQ-2 Total Score (If total score is 3 or more points, staff should administer the PHQ-9) 0 10/11/2021 Comments No Sex and Gender Information Value Date Recorded Sex Assigned at Not on file Legal Sex Female 12:10 AM PENSION ADVISER Gender Identity Not on file Sexual Orientation Not on file Obstetrics History Para Term AB IAB SAB Ectopic Multiple Livin g Live Births 4 3 3 1 1 3 3 Date Outcome GA Total Labor Labor/2nd/3rd Weight Sex Type Anes PTL Radha A1 A5 Name Clin 1968 Term M Vag-S pont Living 1969 SAB 1970 Term F Vag-S pont Living 1979 Term F Living Last Filed Vital Signs Vital Sign Reading Time Taken Comments Blood Pressure 130/78 06/21/2024 11:44 AM PENSION ADVISER Pulse 61 06/21/2024 11:44 AM PENSION ADVISER Temperature 36.6 C (97.8 F) 04/23/2023 3:28 PM PENSION ADVISER Respiratory Rate 16 12/25/2021 8:49 AM CDT Oxygen Saturation 97% 06/21/2024 11:44 AM PENSION ADVISER Inhaled Oxygen Concentration - - Weight 62.6 kg (138 lb) 06/21/2024 11:44 AM PENSION ADVISER Height 157.5 cm (5' 2 ) 06/21/2024 11:44 AM PENSION ADVISER Body Mass Index 25.24 06/21/2024 11:44 AM PENSION ADVISER Plan of Treatment Upcoming Encounters Date Type Department Care Team (Late st Contact Info) Description 09/28/2024 9:30 AM CDT Hospital Encounter [facility] [address] [place] [address] Mary Fishman MD [address] [place] [address] 09/28/2024 9:30 AM CDT - 09/28/2024 10:00 AM CDT Surgery [facility] [address] [place] [address] Mary Fishman MD [address] [place] [address] [place] [address] COLONOSCOPY Scheduled Procedures Name Priority Associated Diagnoses Date/Ti me COLONOSCOPY Personal history of colonic polyps Encounter for screening colonoscopy 09/28/2024 9:30 AM CDT Health Maintenance Due Date Last Done Comments Hepatitis C Screening 1945 DTaP/Tdap/Td Vaccine (1 - Tdap) 10/08/1958 Hepatitis B Screening 10/08/1965 Well Visit 65+ 10/08/2012 Depression Screening 10/11/2022 10/11/2021, 10/06/19 20 Fall Risk Assessment 12/25/2022 12/25/2021 Osteoporosis Screening-Bone Density Scan 02/05/2024 02/04/2022, 08/05/2017, 08/16/2015 Influenza Vaccine (Season Ended) 2024 01/31/2019, 03/16/2018, 02/02/2018, Additional history exists Pneumococcal vaccine 65+ Completed 05/07/2017, 02/19 Zoster Vaccine Completed 03/16/2018, 12/20, 09/16/2012 Colon Cancer Screening-CT Colonography Discontinued 12/23/2018, 10/25/2013, 10/25/2013, Additional history exists Colon Cancer Screening-Colonoscopy Discontinued 12/23/2018, 10/25/2013, 10/25/2013, Additional history exists Colon Cancer Screening-DNA Stool Discontinued 12/23/2018, 10/25/2013, 10/25/2013, Additional history exists Colon Cancer Screening-FIT Discontinued 12/23, 10/25/2013, 10/25/2013, Additional history exists Colon Cancer Screening-FOBT Discontinued 08/2018, 10/25/2013, 10/25/2013, Additional history exists Colon Cancer Screening-Sigmoidoscopy Discontinued 12/23/2018, 10/25/2013, 10/25/2013, Additional history exists Colorectal Cancer Screening Discontinued Breast Cancer Screening-Mammogram Discontinued 01/31/2022, 09/21/2018, 09/08/2016 Medical Devices Implanted Type Area Bsa/Aml Compliance Officer Device Identifier Shelf Expiration Date Model / Serial / Lot [employer] Carmen Synergy Xd 3mm 48mm System Coronary Stent Everolimus [id number] - S0 - [id number] Implanted:Qty: 1 on 12/24/2021 by Zach Botello MD at [facility] Stent [employer]en 10/02/2023 [id number] 300 / 0 / [id number] [employer] Carmen Synergy Xd Monorail 3.5mm 38mm 144cm Delivery System 1 Access [id number] - S0 - [id number] Implanted:Qty: 1 on 12/24/2021 by Zach Botello MD at [facility] Stent [employer] Carmen 06/10/2023 [id number] 350 / 0 / [id number] Description:RCA [employer] Carmen Synergy Xd Monorail 3mm 16mm 144cm Delivery System 1 Access Port [id number] - S0 - [id number] Implanted:Qty: 1 on 12/24/2021 by Zach Botello MD at [facility] Stent [employer] Carmen 06/24/2023 [id number] 300 / 0 / [id number] [employer] Carmen Synergy Xd 3mm 48mm System Coronary Stent Everolimus [id number] - S0 - [id number] Implanted:Qty: 1 on 12/24/2021 by Zach Botello MD at [facility] Stent [employer] Carmen 10/02/2023 [id number] 300 / 0 / [id number] [employer] Carmen Stent Drug Eluting S Megatron Us Mr [id number] - S0 - [id number] Implanted:Qty: 1 on 12/24/2021 by Zach Botello MD at [facility] Stent [employer] Carmen 05/08/2022 [id number] 350 / 0 / [id number] Procedures Procedure Name Priority Date/Time Associated Diagnosis Comments DEXA AXIAL SKELETON BONE DENSITY 1 OR MORE SITES Schedule Routine, Read Routine (OP Routine) 02/04/2022 10:11 AM CDT Screening for osteoporosis Asymptomatic menopausal state MAMMOGRAPHY Schedule Routine, Read Routine (OP Routine) 01/31/2022 COLONOSCOPY 12/23/2018 9:50 AM CDT from Last 3 Months or Most Recently Relevant to Health Maintenance Results * Dexa Axial Skeleton Bone Density 1 or 2 Site (02/04/2022 10:11 AM CDT) Anatomical Region Laterality Modality Body N/A Other 02/05/2022 6:31 PM CDT Narrative 02/05/2022 6:32 PM CDT EXAM DESCRIPTION: DEXA AXIAL SKELETON BONE DENSITY 1 OR MORE SITES REASON FOR STUDY: 76 y/o year old F with given history of screening. Postmenopausal Bsa/Aml Compliance Officer/Model: [employer] SL (S/N [id number]) CLINICAL INFORMATION: Current height: 63 inches Maximum height: 66 inches Weight: 136 pounds Risk factors: Postmenopausal COMPARISON: 08/05/2017. FINDINGS: AP LUMBAR SPINE L1-L4: Total BMD is 0.860 g/cm2 T-score is -1.7 Dissimilar scan types or analysis methods precludes assessment for calculating a significant change. LEFT HIP: Total BMD is 0.617 g/cm2 T-score is -2.7 Dissimilar scan types or analysis methods precludes assessment for calculating a significant change. Femoral neck BMD is 0.531 g/cm2 T-score is -2.9 FRAX: FRAX not reported due to T-scores of hip, femoral neck and/or spine being at or below -2.5 (Osteoporosis). IMPRESSION: Based on the left femoral neck bone mineral density (T-score -2.9 ) the patient has osteoporosis . REFERENCE: Bone mineral density: Normal (T-score above or = -1.0) Low bone mass (T-score between -1.0 and -2.5) replaces the previously used term osteopenia Osteoporosis (T-score = or below -2.5) Medical evaluation for secondary causes of low bone mineral density may be appropriate. FRAX is a World Health Organization validated fracture risk assessment tool that calculates a person's 10 year probability of a major osteoporosis related fracture and hip fracture. According to the National Osteoporosis Foundation guidelines, postmenopausal women and men age 50 or older with low bone mass and a 10 year probability of a major osteoporosis related fracture = or greater than 20% or a 10 year probability of a hip fracture = or greater than 3% should be considered for treatment. For further information, including treatment recommendations, please refer to the 2013 ISCD Official Positions (http://www.iscd.org) and the NOF's Clinician's Guide to Prevention and Treatment of Osteoporosis (http://www.nof.org/professionals/clinical-guidelines) THIS IS AN ELECTRONICALLY VERIFIED FINAL REPORT 02/05/2022 6:32 PM - Electronically signed by Gurwinder Madison M.D. MF: CECI Report ID: [id number] Reading Location: [id number] Procedure Note Gurwinder Madison MD - 02/05/2022 EXAM DESCRIPTION: DEXA AXIAL SKELETON BONE DENSITY 1 OR MORE SITES REASON FOR STUDY: 76 y/o year old F with given history ofscreening. Postmenopausal Bsa/Aml Compliance Officer/Model: [employer] SL (S/N [id number]) CLINICAL INFORMATION: Current height: 63 inches Maximum height: 66 inches Weight: 136 pounds Risk factors: Postmenopausal COMPARISON: 08/05/2017. FINDINGS: AP LUMBAR SPINE L1-L4: Total BMD is 0.860 g/cm2 T-score is -1.7 Dissimilar scan types or analysis methods precludes assessment for calculating a significant change. LEFT HIP: Total BMD is 0.617 g/cm2 T-score is -2.7 Dissimilar scan types or analysis methods precludes assessment for calculating a significant change. Femoral neck BMD is 0.531 g/cm2 T-score is -2.9 FRAX: FRAX not reported due to T-scores of hip, femoral neck and/or spine beingat or below -2.5 (Osteoporosis). IMPRESSION: Based on the left femoral neck bone mineral density (T-score -2.9 )the patient has osteoporosis . REFERENCE: Bone mineral density: Normal (T-score above or = -1.0) Low bone mass (T-score between -1.0 and -2.5) replaces thepreviously used term osteopenia Osteoporosis (T-score = or below -2.5) Medical evaluation for secondary causes of low bone mineral density may be appropriate. FRAX is a World Health Organization validated fracture risk assessmenttool that calculates a person's 10 year probability of a major osteoporosisrelated fracture and hip fracture. According to the National OsteoporosisFoundation guidelines, postmenopausal women and men age 50 or older with low bonemass and a 10 year probability of a major osteoporosis related fracture = or greater than 20% or a 10 year probability of a hip fracture = or greaterthan 3% should be considered for treatment. For further information, including treatment recommendations, please referto the 2013 ISCD Official Positions (http://www.iscd.org) and the NOF's Clinician's Guide to Prevention and Treatment of Osteoporosis (http://www.nof.org/professionals/clinical-guidelines) THIS IS AN ELECTRONICALLY VERIFIED FINAL REPORT 02/05/2022 6:32 PM - Electronically signed by Gurwinder Madison M.D. MF: CECI Report ID: [id number] Reading Location: [id number] Steff Cruz NP IMG DXA PROCEDURES Final Result * MAMMOGRAPHY (01/31/2022) Anatomical Region Laterality Modality Breast Mammography us Steff Cruz NP IMG MAMMO PROCEDURES Sarah l Result * COLONOSCOPY (12/23/2018 9:50 AM CDT) Anatomical Region Laterality Modality Other Narrative Procedure Note Dean Sidhu MD - 12/23/2018 9:50 AM CDT [facility] Patient Name: Sharon Domingo Procedure Date: 12/23/2018 9:50 AM Date of : 1945 Admit Type: Outpatient Age: 73 Gender: Female Attending MD: Dean Sidhu M.D. Room: [facility] ENDOSCOPY ROOM 2 Note Status: Finalized Patient Profile: Refer to note in patient chart for documentation of history and physical. Procedure: Colonoscopy Indications: High risk colon cancer surveillance: Personalhistory of colonic polyps, Last colonoscopy: October 2013 Referring MD: Cha Leon MD Providers: Dean Sidhu M.D. Impression: - Hemorrhoids found on perianal exam. - The entire examined colon is normal. - No specimens collected. Recommendation: - Discharge patient to home. - Resume previous diet. - Continue present medications. - Repeat colonoscopy in 5 years for surveillance. - Return to primary care physician as previously scheduled. Medicines: Propofol per Anesthesia Complications: No immediate complications. Estimated Blood Loss: Estimated blood loss: none. Procedure: Pre-Anesthesia Assessment: - This assessment was completed prior to the administration of sedation. The benefits, risks and alternatives of theprocedure and sedation were discussed and informed consent was obtained. All questions were answered. Please referto the signed informed consent document in the medical record. The scope was passed under direct vision.The Colonoscope [id number] was introducedthrough the anus and advanced to the the cecum, identifiedby appendiceal orifice and ileocecal valve. Bowel prepwas administered using a single dose. The bowelpreparation used was Miralax. The bowel preparation used was bisacodyl tablets. Findings: Hemorrhoids were found on perianal exam. The colon (entire examined portion) appeared normal. Electronically signed by Dean Sidhu M.D. Dean Sidhu M.D. 12/23/2018 10:26:40 AM Number of Addenda: 0 Note Initiated On: 12/23/2018 9:50 AM Procedure Code(s): --- Professional --- G0105, Colorectal cancer screening; colonoscopy on individual at high risk Diagnosis Code(s): --- Professional --- K64.9, Unspecified hemorrhoids Z86.010, Personal history of colonic polyps CPT copyright 2017 [employer]. All rights reserved. The codes documented in this report are preliminary and upon research methodologist reviewmay be revised to meet current compliance requirements. Recognized by the [place] [employer] for promoting quality in endoscopy Dean Sidhu MD ENDOSCOPY PROCEDURES Final Re sult from Last 3 Months or Most Recently Relevant to Health Maintenance Insurance MEDICARE [employer] [place] MEDICARE [employer] [place] MEDICARE [facility] Advance Directives For more information, please contact: [phone] * Full Code (Latest Code Status on File) Date Activated Date Inactivated Comments 12/24/2021 11:56 AM 12/25/2021 7:20 PM * Full Code Date Activated Date Inactivated Comments 05/30/2021 9:46 AM 05/30/2021 4:06 PM * Full Code Date Activated Date Inactivated Comments 05/30/2021 9:46 AM 05/30/2021 9:46 AM * Full Code Date Activated Date Inactivated Comments 05/16/2021 11:27 AM 05/16/2021 4:04 PM * Full Code Date Activated Date Inactivated Comments 05/16/2021 11:27 AM 05/16/2021 11:27 AM Care Teams Fusion Juncture Grinder Relationship Specialty Start Date End Date Cha Leon MD [address] [place] [address] PCP - General 06/27/16
--- OUTSIDE RECORDS SUMMARY | 2024-09-03 18:55 | XMS_ITS | Referral Summary ---
Author Organization [facility] Address [address] [place] [address] Care Team Providers Care Regulatory Affairs Analyst Name Role Phone Cha Leon MD Primary Care Provider [phone] Encounters Date Type Department Care Team Description 08/19/[address] [facility] Gastroenterology at [address] [place] [address] Ashley Finnegan Prep Instructions 06/21/2024 11:45 AM MOTION PICTURE SET GRIP Office Visit [facility] Cardiology at [address] [place] [address] Gurwinder Fisher MD Ischemic cardiomyopathy (Primary Dx); Coronary artery disease involving big sandy coronary artery of big sandy heart without angina pectoris; History of coronary artery stent placement from Last 3 Months Allergies Active Allergy Reactions Criticality Noted Date [...] artery disease) 12/24/2021 Coronary artery disease involving big sandy heart 0 12/19/2021 Overview (12/19/2021): Added automatically from request for surgery [id number] Osteoarthritis 11/18/2021 Hemorrhoids 02/12/2021 Overview (02/12/2021): Added automatically from request for surgery [id number] Grade III hemorrhoids 12/31/2020 Assessment & Plan (11/18/2021 2:20 PM CDT): anusol HC supps and return prn Assessment & Plan (02/12/2021 12:52 PM CDT): III roids [facility] series Assessment & Plan (12/31/2020 2:22 PM CDT): Hi fibver diet with miralax daily and return prn. Hx of colonic polyp 11/08/2018 Overview (11/08/2018): Added automatically from request for surgery [id number] Osteoporosis 07/27/2013 Overview (07/23/2016): Osteoporosis Immunizations Immunization Administration Dates Next Due Influenza, Trivalent, Preservative Free, Intramu scular 01/19/2012 Social History Tobacco Use Types Packs/Day Years Used Date Smoking Tobacco: Former Cigarettes 1 - 1997 Passive Smoke Exposure: Past Smokeless [...] on file Legal Sex Female 12:10 AM MOTION PICTURE SET GRIP Gender Identity Not on file Sexual Orientation Not on file Last Filed Vital Signs Vital Sign Reading Time Taken Comments Blood Pressure 130/78 06/21/2024 11:44 AM MOTION PICTURE SET GRIP Pulse 61 06/21/2024 11:44 AM MOTION PICTURE SET GRIP Temperature 36.6 C (97.8 F) 04/23/2023 3:28 PM MOTION PICTURE SET GRIP Respiratory Rate 16 12/25/2021 8:49 AM CDT Oxygen Saturation 97% 06/21/2024 11:44 AM MOTION PICTURE SET GRIP Inhaled Oxygen Concentration - - Weight 62.6 kg (138 lb) 06/21/2024 11:44 AM MOTION PICTURE SET GRIP Height 157.5 cm (5' 2 ) 06/21/2024 11:44 AM MOTION PICTURE SET GRIP Body Mass Index 25.24 06/21/2024 11:44 AM MOTION PICTURE SET GRIP Plan of Treatment Upcoming Encounters Date Type Department Care Team (Late st Contact Info) Description 09/28/2024 9:30 AM CDT Hospital Encounter [address] [address] Mary Fishman MD [address] [facility] [address] [place] [address] 09/28/2024 9:30 AM CDT - 09/28/2024 10:00 AM CDT Surgery [address] [address] Mary Fishman MD [address] [facility] [address] [place] [address] COLONOSCOPY Scheduled Procedures Name Priority Associated Diagnoses Date/Ti me COLONOSCOPY Personal history of colonic polyps Encounter for screening colonoscopy 09/28/2024 9:30 AM CDT Medical Devices Implanted Type Area Credit Products Officer Device Identifier Shelf Expiration Date Model / Serial / Lot [employer] Synergy Xd 3mm 48mm System Coronary Stent Everolimus [id number] - S0 - [id number] Implanted:Qty: 1 on 12/24/2021 by Zach Botello MD at [facility] Stent [employer] 10/02/2023 [id number] 300 / 0 / [id number] [employer] Synergy Xd Monorail 3.5mm 38mm 144cm Delivery System 1 Access [id number] - S0 - [id number] Implanted:Qty: 1 on 12/24/2021 by Zach Botello MD at [facility] Stent [employer] 06/10/2023 [id number] 350 / 0 / [id number] Description:RCA [employer] Synergy Xd Monorail 3mm 16mm 144cm Delivery System 1 Access Port [id number] - S0 - [id number] Implanted:Qty: 1 on 12/24/2021 by Zach Botello MD at [facility] Stent [employer] 06/24/2023 [id number] 300 / 0 / [id number] [employer] Carm[employer] Synergy Xd 3mm 48mm System Coronary Stent Everolimus [id number] - S0 - [id number] Implanted:Qty: 1 on 12/24/2021 by Zach Botello MD at [facility] Stent [employer] 10/02/2023 [id number] 300 / 0 / [id number] [employer] Carm[employer] Stent Drug Eluting S Megatron Us Mr 3.83p98hf [id number] - S0 - [id number] Implanted:Qty: 1 on 12/24/2021 by Zach Botello MD at [facility] Stent [employer] Carmen 05/08/2022 [id number] 350 / 0 / [id number] Procedures Procedure Name Priority Date/Time Associated Diagnosis [...] F with given history of screening. Postmenopausal Credit Products Officer/Model: [employer] Cremation (S/N [id number]) CLINICAL INFORMATION: Current height: 63 inches Maximum [...] Gurwinder Madison M.D. MF: CECI Report ID: [id number] Reading Location: [id number] Procedure Note Gurwinder Madison MD - 02/05/2022 EXAM DESCRIPTION: DEXA AXIAL SKELETON BONE DENSITY 1 OR MORE SITES REASON FOR STUDY: 76 y/o year old F with given history ofscreening. Postmenopausal Credit Products Officer/Model: Watson Brown Discovery SL (S/N [id number]) CLINICAL INFORMATION: Current height: 63 inches Maximum [...] 6:32 PM - Electronically signed by Gurwinder ORNELAS: CECI Report ID: [id number] Reading Location: [place] [address] Steff Cruz WEED THINNER IMG DXA PROCEDURES Final Result * MAMMOGRAPHY (01/31/2022) Anatomical Region Laterality Modality Breast Mammography us Steff Cruz WEED THINNER IMG MAMMO PROCEDURES Sarah l Result * COLONOSCOPY (12/23/2018 9:50 AM CDT) Anatomical Region Laterality Modality Other Narrative Procedure Note Dean Sidhu MD - 12/23/2018 9:50 AM CDT [facility] Patient Name: Sharon Domingo Procedure Date: 12/23/2018 9:50 AM Date of : 1945 Admit Type: Outpatient Age: 73 Gender: Female Attending MD: Dean Sidhu M.D. Room: [facility] ENDOSCOPY ROOM 2 Note Status: Finalized Patient [...] scope was passed under direct vision.The Colonoscope [id number] was introducedthrough the anus and advanced to [...] history of colonic polyps CPT copyright 2017 [employer]. All rights reserved. The codes documented in this report are preliminary and upon highway administrative engineer reviewmay be revised to meet current compliance requirements. Recognized by the [employer] for promoting quality in endoscopy Dean Sidhu MD ENDOSCOPY PROCEDURES Final Re sult from Last 3 Months or Most Recently Relevant to Health Maintenance Insurance MEDICARE ON LICENSE OF [facility] MEDICARE [employer] [place] MEDICARE [place] [place] Advance Directives For more information, please contact: [phone] * Full Code (Latest Code Status on [...] 11:27 AM 05/16/2021 11:27 AM Care Teams Regulatory Affairs Analyst Relationship Specialty Start Date End Date Cha Leon MD [address] [place] [address] PCP - General 06/27/16
--- NOTE | 2024-09-03 19:00 | PC.NURSE ---
DR DE AT THE BEDSIDE
--- NOTE | 2024-09-03 19:01 | ED.WOUNDLAC ---
HPI - Wound/Laceration General Stated Complaint: laceration left index finger Source: patient Mode of arrival: ambulatory Limitations: no limitations History of Present Illness HPI narrative: 78 years old white female, left index injury by knife while cutting food prior to discharge, patient on Plavix. She denies other injuries. Related Data Home Medications Medication Instructions Recorded Confirmed Last Taken Type atorvastatin 40 mg tablet 40 mg PO DAILY 05/30/22 12/22/23 05/29/22 21:00 History losartan 50 mg tablet 50 mg PO QHS 05/30/22 12/22/23 05/29/22 21:00 History metoprolol succinate 25 mg capsule 25 mg PO HS 05/30/22 12/22/23 05/29/22 21:00 History sprinkle, ext. release 24 hr cholecalciferol (vitamin D3) 25 25 mcg PO DAILY 05/31/22 12/22/23 Unknown History mcg (1,000 unit) capsule (Vitamin D3) clopidogrel 75 mg tablet 75 mg PO DAILY 12/09/23 12/22/23 Unknown History ascorbic acid (vitamin C) 500 mg mg PO 07/01/24 Unknown History capsule Allergies Allergy/AdvReac Type Severity Reaction Status Date / Time amoxicillin (From Augmentin) Allergy Unknown Verified 07/01/24 07:14 ciprofloxacin (From Cipro) Allergy Unknown Verified 07/01/24 07:14 clarithromycin (From Biaxin) Allergy Unknown Verified 07/01/24 07:14 clavulanic acid (From Allergy Unknown Verified 07/01/24 07:14 Augmentin) cyclobenzaprine (From Allergy Unknown Verified 07/01/24 07:14 Flexeril) dexamethasone Allergy Unknown Verified 07/01/24 07:14 levofloxacin (From Levaquin) Allergy Unknown Verified 07/01/24 07:14 naproxen (From Aleve) Allergy Unknown Verified 07/01/24 07:14 Penicillins Allergy Unknown Verified 07/01/24 07:14 ropinirole Allergy Unknown Verified 07/01/24 07:14 sulfamethoxazole (From Allergy Unknown Verified 07/01/24 07:14 Bactrim) trimethoprim (From Bactrim) Allergy Unknown Verified 07/01/24 07:14 Review of Systems Review of Systems: All systems reviewed & are unremarkable except as noted in HPI and below PMFSH Past Medical History Medical History Hypertension Coronary artery disease Multivessel CAD, non-STEMI with stenting of the ostial -distal RCA, 2 stents in the LAD, and one in distal OM 12/24/2021 at [facility]. Chronic GERD Surgical History Surgical History History of coronary artery stent placement History of cardiac catheterization History of lumbar fusion L4-L5. History of dilation and curettage History of cataract extraction Family History Family History Father Cancer Mother Generalized anxiety disorder Sibling Hypertension Grandparent Cerebrovascular accident Social History Social History Social History: The patient lives with her who has dementia. The patient takes care of her . She has 3 children. Her 3 children are the durable power workers compensation defense attorney for healthcare. 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 Patient used to smoke over 30 years ago. No alcohol marijuana or illicit drugs. Code status full code Smoking packs per day: 0.5 Smoking cigarettes per day: 10.0 Years smoked: 25 Smoking pack-years: 12.50 Smoking status: Former smoker Alcohol intake: never Substance use: never Substance use type: does not use Do You Feel Safe in your Home?: Yes Lack of Transportation: No Lack of Food: Never True Current Housing: I Have Housing Concerned About Future Housing: No Difficulty Paying Gas/Electric Bills: No Difficulty Paying for Meds: No Currently Unemployed: No Education: High School Diploma/GED Difficulty w/ Childcare or Family Care: No Living arrangements: alone Occupation/Education: retired 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 Musculoskeletal: Normal range of motion, nontender back Neurologic: Alert and oriented ×3, RECOVERER is normal as tested, no gross motor deficit Procedures Laceration Laceration 1: Date: 09/03/24 Time: 19:28 Site: other ( left index) Side (If applicable): left Size (cm): 0.4 Description: clean Depth: simple, single layer ====== Skin Level ====== Skin layer closed with: dermabond ====== Subcutaneous Layer ====== ====== Muscle Layer ====== ====== Tendon Layer ====== Discharge Plan Discharge Clinical Impression: Finger laceration Patient Disposition: Home Condition: Stable Instructions: Finger Laceration (ED), Skin Adhesive Care (ED) Additional Instructions: Return if symptoms are worsening , call your family physician for appointment, take Tylenol as as needed for aches and pain, continue home medications. Patient Language: Ivorian Prescriptions: No Action ascorbic acid (vitamin C) 500 mg capsule PO clopidogrel 75 mg tablet 75 mg PO DAILY aspirin 81 mg Tablet,Delayed Release (Dr/Ec) 81 mg PO QAM 30 Days Qty: 30 3RF pantoprazole 40 mg Tablet,Delayed Release (Dr/Ec) 40 mg BYMOUTH DAILY 30 Days Qty: 30 0RF atorvastatin 40 mg tablet 40 mg PO DAILY metoprolol succinate 25 mg capsule,sprinkle,ER 24hr 25 mg PO HS losartan 50 mg Tablet 50 mg PO QHS cholecalciferol (vitamin D3) [Vitamin D3] 25 mcg (1,000 unit) Capsule 25 mcg PO DAILY Follow-up/Referrals: Cha Leon MD [Primary Care Provider] -
--- NOTE | 2024-09-03 19:03 | PC.NURSE ---
LEFT HAND, INDEX FINGER SOAKING IN BETADINE
[2024-09-03] MEDS: TETANUS,DIPHTHERIA,AC PERTUSSIS ADULT 0.5 ML (ADACEL) IM (19:15)
--- NOTE | 2024-09-03 19:24 | PC.NURSE ---
PATIENT HAD DERMABOND PLACED TO LACERATION BY DR DE. EDUCATION ON HOW TO TAKE CARE OF LACERATION AND DERMABOND AT HOME. PATIENT VERBALIZED UNDERSTANDING
== END 2024-09-03 19:25 | disposition home or self-care (01) ==
PROVIDERS: Emergency Provider Emergency Medicine; PCP Internal Medicine
DX: S61.211A Laceration without foreign body of left index finger without damage to nail, initial encounter (principal); Z23 Encounter for immunization; I25.10 Atherosclerotic heart disease of native coronary artery without angina pectoris; I10 Essential (primary) hypertension; Z87.891 Personal history of nicotine dependence; W26.0XXA Contact with knife, initial encounter
CPT/HCPCS: 12001; 90471; 90715; 99282

== ENCOUNTER 2024-09-04 09:33 | Emergency (ER) | payer MEDICARE, OTHER, SELFPAY ==
[2024-09-04 09:33] VITALS: BP 152/92; PULSE 68; RESP 16; TEMP 36.6; O2SAT 95
--- OUTSIDE RECORDS SUMMARY | 2024-09-04 09:35 | XMS_ITS | Clinical Summary ---
Author Organization [facility] Address [address] [place] [address] Care Team Providers Care Mixing Pan Tender Name Role Phone Cha Leon MD Primary [...] artery disease) 12/24/2021 Coronary artery disease involving absentee-shawnee heart 0 12/19/2021 Overview (12/19/2021): Added automatically from request for surgery [id number] Osteoarthritis 11/18/2021 Hemorrhoids 02/12/2021 Overview (02/12/2021): Added automatically from request for surgery [id number] Grade III hemorrhoids 12/31/2020 Assessment & Plan (11/18/2021 2:20 PM CDT): anusol HC supps and return prn Assessment & Plan (02/12/2021 12:52 PM CDT): III roids IRC series Assessment & Plan (12/31/2020 2:22 PM CDT): Hi fibver diet with miralax daily and return prn. Hx of colonic polyp 11/08/2018 Overview (11/08/2018): Added automatically from request for surgery [id number] Osteoporosis 07/27/2013 Overview (07/23/2016): Osteoporosis Encounters Date Type Department Care Team Description 08/19/2024 Telephone [facility] Gastroenterology at [address] [place] [address] Ashley Finnegan Prep Instructions 06/21/2024 11:45 AM STOCK BLENDER Office Visit [facility] Cardiology at [address] [place] [phone] Gurwinder Fisher MD Ischemic cardiomyopathy (Primary Dx); Coronary artery disease involving absentee-shawnee coronary artery of absentee-shawnee heart without angina pectoris; History of coronary [...] on file Legal Sex Female 12:10 AM STOCK BLENDER Gender Identity Not on file Sexual Orientation [...] Comments Blood Pressure 130/78 06/21/2024 11:44 AM STOCK BLENDER Pulse 61 06/21/2024 11:44 AM STOCK BLENDER Temperature 36.6 C (97.8 F) 04/23/2023 3:28 PM STOCK BLENDER Respiratory Rate 16 12/25/2021 8:49 AM CDT Oxygen Saturation 97% 06/21/2024 11:44 AM STOCK BLENDER Inhaled Oxygen Concentration - - Weight 62.6 kg (138 lb) 06/21/2024 11:44 AM STOCK BLENDER Height 157.5 cm (5' 2 ) 06/21/2024 11:44 AM STOCK BLENDER Body Mass Index 25.24 06/21/2024 11:44 AM STOCK BLENDER Plan of Treatment Upcoming Encounters Date Type Department Care Team (Late st Contact Info) Description 09/28/2024 9:30 AM CDT Hospital Encounter [facility] [address] [place] [address] Mary Fishman MD [address] [place] [address] 09/28/2024 9:30 AM CDT - 09/28/2024 10:00 AM CDT Surgery [facility] [address] [place] [address] Mary Fishman MD [address] [place] [address] [place] [address] COLONOSCOPY Scheduled Procedures Name Priority Associated Diagnoses [...] 09/21/2018, 09/08/2016 Medical Devices Implanted Type Area Contract Administrative Assistant Device Identifier Shelf Expiration Date Model / Serial / Lot [employer] Synergy Xd 3mm 48mm System Coronary Stent Everolimus [id number] - S0 - [id number] Implanted:Qty: 1 on 12/24/2021 by Zach Botello MD at [facility] Stent [employer] 10/02/2023 [id number] 300 / 0 / [id number] [employer] Synergy Xd Monorail 3.5mm 38mm 144cm Delivery System 1 Access [id number] - S0 - [id number] Implanted:Qty: 1 on 12/24/2021 by Zach Botello MD at [facility] Stent [employer] 06/10/2023 [id number] 350 / 0 / [id number] Description:RCA [employer] Synergy Xd Monorail 3mm 16mm 144cm Delivery System 1 Access Port [id number] - S0 - [id number] Implanted:Qty: 1 on 12/24/2021 by Zach Botello MD at [facility] Stent [employer] 06/24/2023 [id number] 300 / 0 / [id number] [employer] Synergy Xd 3mm 48mm System Coronary Stent Everolimus [id number] - S0 - [id number] Implanted:Qty: 1 on 12/24/2021 by Zach Botello MD at [facility] Stent [employer] 10/02/2023 [id number] 300 / 0 / [id number] [employer] Stent Drug Eluting S Megatron Us Mr 3.39o28cf [id number] - S0 - [id number] Implanted:Qty: 1 on 12/24/2021 by Zach Botello MD at [facility] Stent [employer] 05/08/2022 [id number] 350 / 0 / [id number] Procedures Procedure Name Priority Date/Time Associated Diagnosis [...] F with given history of screening. Postmenopausal Contract Administrative Assistant/Model: [employer] SL (S/N 80191) CLINICAL INFORMATION: Current height: 63 inches Maximum [...] Gurwinder Madison M.D. MF: CECI Report ID: [id number] Reading Location: [id number] Procedure Note Gruwinder Madison MD - 02/05/2022 EXAM DESCRIPTION: DEXA AXIAL SKELETON BONE DENSITY 1 OR MORE SITES REASON FOR STUDY: 76 y/o year old F with given history ofscreening. Postmenopausal Contract Administrative Assistant/Model: [employer] Discovery SL (S/N 52057) CLINICAL INFORMATION: Current height: 63 inches Maximum [...] Gurwinder Madison M.D. MF: CECI Report ID: [id number] Reading Location: [id number] Steff Cruz NP IMG DXA PROCEDURES Final Result * MAMMOGRAPHY (01/31/2022) Anatomical Region Laterality Modality Breast Mammography us Steff Cruz NP IMG MAMMO PROCEDURES Sarah l Result * COLONOSCOPY (12/23/2018 9:50 AM CDT) Anatomical Region Laterality Modality Other Narrative Procedure Note Dean Sidhu MD - 12/23/2018 9:50 AM CDT [facility] Patient Name: Sharon Domingo Procedure Date: 12/23/2018 9:50 AM Date of : 1945 Admit Type: Outpatient Age: 73 Gender: Female Attending MD: Dean Sidhu M.D. [facility] 2 Note Status: Finalized [...] scope was passed under direct vision.The Colonoscope [id number] was introducedthrough the anus and advanced to [...] history of colonic polyps CPT copyright 2017 [employer]. All rights reserved. The codes documented in this report are preliminary and upon client resource specialist reviewmay be revised to meet current compliance requirements. Recognized by the [employer] [employer] for promoting quality in endoscopy Dean Sidhu MD ENDOSCOPY PROCEDURES Final Re sult from Last 3 Months or Most Recently Relevant to Health Maintenance Insurance MEDICARE [employer] [place] MEDICARE [employer] MEDICARE [facility] Advance Directives For more information, please contact: [phone] * Full Code (Latest Code Status on [...] 11:27 AM 05/16/2021 11:27 AM Care Teams Mixing Pan Tender Relationship Specialty Start Date End Date Cha Leon MD [address] [place] [address] PCP - General 06/27/16
--- OUTSIDE RECORDS SUMMARY | 2024-09-04 09:35 | XMS_ITS | Referral Summary ---
Author Organization [facility] Address [address] [place] [address] Care Team Providers Care Child Development Specialist Name Role Phone Cha Leon MD Primary Care Provider Encounters Date Type Department Care Team Description 08/19/2024 Telephone [facility] Gastroenterology at [address] [place] [address] Ashley Finnegan Prep Instructions 06/21/2024 11:45 AM WIND DEVELOPMENT DIRECTOR Office Visit [facility] Cardiology at [address] [place] [address] Gurwinder Fisher MD Ischemic cardiomyopathy (Primary Dx); Coronary artery disease involving [place] coronary artery of [place] heart without angina pectoris; History of coronary [...] artery disease) 12/24/2021 Coronary artery disease involving [place] heart 0 12/19/2021 Overview (12/19/2021): Added automatically from request for surgery [id number] Osteoarthritis 11/18/2021 Hemorrhoids 02/12/2021 Overview (02/12/2021): Added automatically from request for surgery [id number] Grade III hemorrhoids 12/31/2020 Assessment & Plan (11/18/2021 2:20 PM CDT): anusol HC supps and return prn Assessment & Plan (02/12/2021 12:52 PM CDT): III roids [facility] series Assessment & Plan (12/31/2020 2:22 PM CDT): Hi fibver diet with miralax daily and return prn. Hx of colonic polyp 11/08/2018 Overview (11/08/2018): Added automatically from request for surgery [id number] Osteoporosis 07/27/2013 Overview (07/23/2016): Osteoporosis Immunizations Immunization [...] on file Legal Sex Female 12:10 AM WIND DEVELOPMENT DIRECTOR Gender Identity Not on file Sexual Orientation Not on file Last Filed Vital Signs Vital Sign Reading Time Taken Comments Blood Pressure 130/78 06/21/2024 11:44 AM WIND DEVELOPMENT DIRECTOR Pulse 61 06/21/2024 11:44 AM WIND DEVELOPMENT DIRECTOR Temperature 36.6 C (97.8 F) 04/23/2023 3:28 PM WIND DEVELOPMENT DIRECTOR Respiratory Rate 16 12/25/2021 8:49 AM CDT Oxygen Saturation 97% 06/21/2024 11:44 AM WIND DEVELOPMENT DIRECTOR Inhaled Oxygen Concentration - - Weight 62.6 kg (138 lb) 06/21/2024 11:44 AM WIND DEVELOPMENT DIRECTOR Height 157.5 cm (5' 2 ) 06/21/2024 11:44 AM WIND DEVELOPMENT DIRECTOR Body Mass Index 25.24 06/21/2024 11:44 AM WIND DEVELOPMENT DIRECTOR Plan of Treatment Upcoming Encounters Date Type Department Care Team (Late st Contact Info) Description 09/28/2024 9:30 AM CDT Hospital Encounter [address] [address] Mary Fishman MD [address] [facility] [address] [place] [address] 09/28/2024 9:30 AM CDT - 09/28/2024 10:00 AM CDT Surgery [address] [address] Mary Fishman MD [address] [facility] [address] [place] [address] COLONOSCOPY Scheduled Procedures Name Priority Associated Diagnoses Date/Ti me COLONOSCOPY Personal history of colonic polyps Encounter for screening colonoscopy 09/28/2024 9:30 AM CDT Medical Devices Implanted Type Area Biomedical Field Service Engineer Device Identifier Shelf Expiration Date Model / Serial / Lot [employer] Synergy Xd 3mm 48mm System Coronary Stent Everolimus [id number] - S0 - [id number] Implanted:Qty: 1 on 12/24/2021 by Zach Botello MD at [facility] Stent [employer] 10/02/2023 [id number] 300 / 0 / [id number] [employer] Synergy Xd Monorail 3.5mm 38mm 144cm Delivery System 1 Access [id number] - S0 - [id number] Implanted:Qty: 1 on 12/24/2021 by Zach Botello MD at [facility] Stent [employer] 06/10/2023 [id number] 350 / 0 / [id number] Description:RCA [employer] Synergy Xd Monorail 3mm 16mm 144cm Delivery System 1 Access Port [id number] - S0 - [id number] Implanted:Qty: 1 on 12/24/2021 by Zach Botello MD at [facility] Stent [employer] 06/24/2023 [id number] 300 / 0 / [id number] [employer] Synergy Xd 3mm 48mm System Coronary Stent Everolimus [id number] - S0 - [id number] Implanted:Qty: 1 on 12/24/2021 by Zach Botello MD at [facility] Stent [employer] 10/02/2023 [id number] 300 / 0 / [id number] [employer] Stent Drug Eluting S Megatron Us Mr 3.46x44pj [id number] - S0 - [id number] Implanted:Qty: 1 on 12/24/2021 by Zach Botello MD at [facility] Stent [employer] 05/08/2022 [id number] 350 / 0 / [id number] Procedures Procedure Name Priority Date/Time Associated Diagnosis [...] F with given history of screening. Postmenopausal Biomedical Field Service Engineer/Model: [employer] (S/N [id number]) CLINICAL INFORMATION: Current height: 63 inches Maximum [...] Gurwinder Madison M.D. MF: CECI Report ID: [id number] Reading Location: [id number] Procedure Note Gurwinder Madison MD - 02/05/2022 EXAM DESCRIPTION: DEXA AXIAL SKELETON BONE DENSITY 1 OR MORE SITES REASON FOR STUDY: 76 y/o year old F with given history ofscreening. Postmenopausal Biomedical Field Service Engineer/Model: [employer] (S/N [id number]) CLINICAL INFORMATION: Current height: 63 inches Maximum [...] signed by Gurwinder ORNELAS: CECI Report ID: [id number] Reading Location: [place] [address] Steff Cruz CLINICAL TRANSPLANT COORDINATOR IMG DXA PROCEDURES Final Result * MAMMOGRAPHY (01/31/2022) Anatomical Region Laterality Modality Breast Mammography us Steff Cruz CLINICAL TRANSPLANT COORDINATOR IMG MAMMO PROCEDURES Sarah l Result * COLONOSCOPY (12/23/2018 9:50 AM CDT) Anatomical Region Laterality Modality Other Narrative Procedure Note Dean Sidhu MD - 12/23/2018 9:50 AM CDT [facility] Patient Name: Sharon Domingo Procedure Date: 12/23/2018 9:50 AM Date of : 1945 Admit Type: Outpatient Age: 73 Gender: Female Attending MD: Dean Sidhu M.D. Room: [facility] ENDOSCOPY ROOM 2 Note Status: Finalized [...] scope was passed under direct vision.The Colonoscope [id number] was introducedthrough the anus and advanced to [...] history of colonic polyps CPT copyright 2017 [employer]. All rights reserved. The codes documented in this report are preliminary and upon wagon person reviewmay be revised to meet current compliance requirements. Recognized by the [place] [employer] for promoting quality in endoscopy Dean Sidhu MD ENDOSCOPY PROCEDURES Final Re sult from Last 3 Months or Most Recently Relevant to Health Maintenance Insurance MEDICARE [facility] MEDICARE [facility] [place] MEDICARE [place] [facility] [place] Advance Directives For more information, please contact: [phone] * Full Code (Latest Code Status on [...] 11:27 AM 05/16/2021 11:27 AM Care Teams Child Development Specialist Relationship Specialty Start Date End Date Cha Leon MD [address] [place] [address] PCP - General 06/27/16
--- OUTSIDE RECORDS SUMMARY | 2024-09-04 09:35 | XMS_ITS | Encounter Summary ---
Author Organization [facility] Healthcare Address [address] [place] [address] Care Team Providers Care Sports Apparel Internship Name Role Phone Cha Leon MD Primary Care Provider + [phone] Encounter Details Date Type Department Care Team (Late Contact Info) Description 02/03/[address] [address] Vera Raygoza RT Social History Tobacco Use [...] on file Legal Sex Female 12:10 AM CDC ASSOCIATE Gender Identity Not on file Sexual Orientation Not on file documented as of this encounter Plan of Treatment Upcoming Encounters Date Type Department Care Team (Late Contact Info) Description 09/28/2024 9:30 AM CDT Hospital Encounter [address] [address] Mary Fishman MD [address] [place] [address] [place] [address] 09/28/2024 9:30 AM CDT - 09/28/2024 10:00 AM CDT Surgery [facility] [address] [place] [address] Mary Fishman MD [address] [place] [id number] COLONOSCOPY Scheduled Procedures Name Priority Associated Diagnoses [...] positive COVID result and will fax to [phone] for it to be scanned under the media tab. .6.22 [facility] COVID test was pre-procedural. Routine retesting not recommended for 120 days or expiration date of 03.10.22 without an infectious disease physician consult. Zane Cullen 9.10.09 Added based on recent COVID infection. 11/10/2021 12/24/2021 03/10/2022 3:[address] COVID: Recovered Comment:Added based on recent COVID infection. 12/24/2021 03/12/2022 03/24/2022 3:[address] documented as of this encounter Care Teams Sports Apparel Internship Relationship Specialty Start Date End Date Cha Leon MD [address] [place] [address] PCP - General 06/27/16 documented as of this encounter
--- OUTSIDE RECORDS SUMMARY | 2024-09-04 09:35 | XMS_ITS | Clinical Summary ---
Author Organization [facility] Address [address] [place] [address] Care Team Providers Care Civil Rights Attorney Name Role Phone Unavailable Primary Care Provider Unavailabl e Social History Tobacco Use Types Packs/Day Years Used Date Smoking Tobacco: Never Assessed Comments Unknown Sex and Gender Information Value Date Recorded Sex Assigned at Not on file Legal Sex Female 10:23 PM [employer] Gender Identity Not on file Sexual Orientation [...]
--- NOTE | 2024-09-04 09:46 | ED.GENADULT ---
HPI - General Adult General Chief complaint: Wound/Laceration Stated complaint: laceration Time Seen by Provider: 09/04/24 09:40 History of Present Illness HPI narrative: Sharon is a 78F with a PMH of HTN, CAD, HLD, and anxiety that presented to the ED with bleeding from a right index finger laceration. She cut it last night and was given a tetanus shot and the wound was closed with adhesive. She was working and it opened and started bleeding. Related Data Home Medications Medication Instructions Recorded Confirmed Last Taken Type atorvastatin 40 mg tablet 40 mg PO DAILY 05/30/22 12/22/23 05/29/22 21:00 History losartan 50 mg tablet 50 mg PO QHS 05/30/22 12/22/23 05/29/22 21:00 History metoprolol succinate 25 mg capsule 25 mg PO HS 05/30/22 12/22/23 05/29/22 21:00 History sprinkle, ext. release 24 hr cholecalciferol (vitamin D3) 25 25 mcg PO DAILY 05/31/22 12/22/23 Unknown History mcg (1,000 unit) capsule (Vitamin D3) clopidogrel 75 mg tablet 75 mg PO DAILY 12/09/23 12/22/23 Unknown History ascorbic acid (vitamin C) 500 mg mg PO 07/01/24 Unknown History capsule Allergies Allergy/AdvReac Type Severity Reaction Status Date / Time amoxicillin (From Augmentin) Allergy Unknown Verified 09/04/24 09:44 ciprofloxacin (From Cipro) Allergy Unknown Verified 09/04/24 09:44 clarithromycin (From Biaxin) Allergy Unknown Verified 09/04/24 09:44 clavulanic acid (From Allergy Unknown Verified 09/04/24 09:44 Augmentin) cyclobenzaprine (From Allergy Unknown Verified 09/04/24 09:44 Flexeril) dexamethasone Allergy Unknown Verified 09/04/24 09:44 levofloxacin (From Levaquin) Allergy Unknown Verified 09/04/24 09:44 naproxen (From Aleve) Allergy Unknown Verified 09/04/24 09:44 Penicillins Allergy Unknown Verified 09/04/24 09:44 ropinirole Allergy Unknown Verified 09/04/24 09:44 sulfamethoxazole (From Allergy Unknown Verified 09/04/24 09:44 Bactrim) trimethoprim (From Bactrim) Allergy Unknown Verified 09/04/24 09:44 Review of Systems Review of Systems: All systems reviewed & are unremarkable except as noted in HPI and below [facility] Past Medical History Medical History Hypertension Coronary artery disease Multivessel CAD, non-STEMI with stenting of the ostial -distal RCA, 2 stents in the LAD, and one in distal OM 12/24/2021 at [facility]. Chronic GERD Surgical History Surgical History History of coronary artery stent placement History of cardiac catheterization History of lumbar fusion L4-L5. History of dilation and curettage History of cataract extraction Family History Family History Father Cancer Mother Generalized anxiety disorder Sibling Hypertension Grandparent Cerebrovascular accident Social History Social History Social History: The patient lives with her who has dementia. The patient takes care of her . She has 3 children. Her 3 children are the durable power ammunition components inspector for healthcare. 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 Patient used to smoke over 30 years ago. No alcohol marijuana or illicit drugs. Code status full code Smoking packs per day: 0.5 Smoking cigarettes per day: 10.0 Years smoked: 25 Smoking pack-years: 12.50 Smoking status: Former smoker Alcohol intake: never Substance use: never Substance use type: does not use Do You Feel Safe in your Home?: Yes Lack of Transportation: No Lack of Food: Never True Current Housing: I Have Housing Concerned About Future Housing: No Difficulty Paying Gas/Electric Bills: No Difficulty Paying for Meds: No Currently Unemployed: No Education: High School Diploma/GED Difficulty w/ Childcare or Family Care: No Living arrangements: alone Occupation/Education: retired 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 Gender identity (if verbalized by the patient): Female Spiritual care concerns: No Exam Const: General: cooperative, healthy appearing, comfortable, no acute distress, well developed, alert, awake and Physically active Orientation/consciousness: oriented to person, oriented to place and oriented to time HENMT: Head: normal to inspection, normocephalic and atraumatic Ears: hearing grossly normal bilaterally and external ears normal Face/Nose/Sinus: Normal external nose present Eyes: General: appearance normal, both eyes and all related structures Periorbital: periorbital findings normal Sclera: sclerae normal Pupils: Equal, round and reactive pupils present Neck: Neck: normal visual inspection Chest: Chest palpation & inspection: normal inspection of the chest Resp: Effort & Inspection: normal respiratory effort, able to speak in complete sentences and no respiratory distress Cardio: Jugular venous distension: no JVD Skin: General skin exam: normal color and no rashes or lesions noted Other: <1 cm finger laceration on the right index finger Neuro: General: oriented to person, oriented to place and oriented to time Cranial nerves: Yes Equal, round and reactive pupils present Extrem: General: normal to inspection Course Course Emergency Course: Placed a compression dressing. Bleeding was stopped with dressing Vital Signs Vital signs: Vital Signs Temperature 97.9 F 09/04/24 09:33 Pulse Rate 68 09/04/24 09:33 Respiratory Rate 16 09/04/24 09:33 Blood Pressure 152/92 H 09/04/24 09:33 Pulse Oximetry 95 09/04/24 09:33 Oxygen Delivery Room Air 09/04/24 09:33 Temperature 97.9 F 09/04/24 09:33 Pulse Rate 68 09/04/24 09:33 Respiratory Rate 16 09/04/24 09:33 Blood Pressure 152/92 H 09/04/24 09:33 Pulse Oximetry 95 09/04/24 09:33 Oxygen Delivery Room Air 09/04/24 09:33 Medical Decision Making Vital Signs Vital Signs: Vital Signs Temperature 97.9 F 09/04/24 09:33 Pulse Rate 68 09/04/24 09:33 Respiratory Rate 16 09/04/24 09:33 Blood Pressure 152/92 H 09/04/24 09:33 Pulse Oximetry 95 09/04/24 09:33 Oxygen Delivery Room Air 09/04/24 09:33 Temperature 97.9 F 09/04/24 09:33 Pulse Rate 68 09/04/24 09:33 Respiratory Rate 16 09/04/24 09:33 Blood Pressure 152/92 H 09/04/24 09:33 Pulse Oximetry 95 09/04/24 09:33 Oxygen Delivery Room Air 09/04/24 09:33 Discharge Plan Discharge Clinical Impression: Finger laceration Patient Disposition: Home Condition: Stable Instructions: Acute Wounds (ED) Patient Language: Macedonian Prescriptions: No Action ascorbic acid (vitamin C) 500 mg capsule PO clopidogrel 75 mg tablet 75 mg PO DAILY aspirin 81 mg Tablet,Delayed Release (Dr/Ec) 81 mg PO QAM 30 Days Qty: 30 3RF pantoprazole 40 mg Tablet,Delayed Release (Dr/Ec) 40 mg BYMOUTH DAILY 30 Days Qty: 30 0RF atorvastatin 40 mg tablet 40 mg PO DAILY metoprolol succinate 25 mg capsule,sprinkle,ER 24hr 25 mg PO HS losartan 50 mg Tablet 50 mg PO QHS cholecalciferol (vitamin D3) [Vitamin D3] 25 mcg (1,000 unit) Capsule 25 mcg PO DAILY Follow-up/Referrals: Cha Leon MD [Primary Care Provider] -
== END 2024-09-04 10:27 | disposition home or self-care (01) ==
PROVIDERS: Emergency Provider Family Medicine; PCP Internal Medicine
DX: S61.210D Laceration without foreign body of right index finger without damage to nail, subsequent encounter (principal); I25.10 Atherosclerotic heart disease of native coronary artery without angina pectoris; I10 Essential (primary) hypertension; Z87.891 Personal history of nicotine dependence; W45.8XXD Other foreign body or object entering through skin, subsequent encounter
CPT/HCPCS: 99282

== ENCOUNTER 2024-09-24 08:50 | Outpatient (CLI) | payer MEDICARE, OTHER, SELFPAY ==
--- NOTE | ~2024-09-24 | MM_ITS ---
EXAMINATION: MM screening ngoc BI w sydni HISTORY: Screening TECHNIQUE: Craniocaudal and mediolateral oblique 3-D tomosynthesis images were obtained and synthetic 2-D images were generated. CAD analysis was submitted and interpreted. COMPARISON: Comparison to multiple prior studies sequentially, with oldest reviewed study dated 09/10. BREAST PARENCHYMAL COMPOSITION: Not dense: There are scattered areas of fibroglandular density. FINDINGS: There is no evidence of suspicious mass, calcification, or architectural distortion to sugg est malignancy in either breast. There has been no suspicious interval change. IMPRESSION: 1. No mammographic evidence of malignancy. 2. Recommend routine screening mammography in one year. BI-RADS Category 1: Negative Reviewed, dictated and finalized at location B.
== END 2024-09-24 08:51 | disposition home or self-care (01) ==
LOC: MICIMG 08:51
PROVIDERS: PCP Internal Medicine; Visit Provider Internal Medicine
DX: Z12.31 Encounter for screening mammogram for malignant neoplasm of breast (principal)
CPT/HCPCS: 77063; 77067

== ENCOUNTER 2024-10-31 10:15 | Outpatient (CLI) | payer MEDICARE, OTHER, SELFPAY ==
--- NOTE | ~2024-10-31 | XR_ITS ---
Lumbosacral Spine: AP and lateral views Clinical History: Pain Findings: The normal lordotic curve is maintained. The vertebral bodies and posterior elements are i ntact. There is moderate to advanced degenerative disc narrowing throughout the lumbar spine. There i s advanced facet arthropathies of the lumbar spine. The sacroiliac joints are normally outlined. Impression: Advanced degenerative spondylosis, similar to prior exam. Reviewed, dictated and finalized at location M. Impression: Advanced degenerative spondylosis, similar to prior exam.
--- OUTSIDE RECORDS SUMMARY | 2024-10-31 10:22 | XMS_ITS | Clinical Summary ---
Author Organization [facility] Address [address] [place] [address] Care Team Providers Care Player Manager Name Role Phone Cha Leon MD Primary Care Provider + [phone] Allergies Active Allergy Reactions Criticality Noted Date [...] artery disease) 12/24/2021 Coronary artery disease involving stillaguamish heart 0 12/19/2021 Overview (12/19/2021): Added automatically from request for surgery [id number] Osteoarthritis 11/18/2021 Hemorrhoids 02/12/2021 Overview (02/12/2021): Added automatically from request for surgery [id number] Grade III hemorrhoids 12/31/2020 Assessment & Plan (11/18/2021 2:20 PM CDT): anusol HC supps and return prn Assessment & Plan (02/12/2021 12:52 PM CDT): III roids IRC series Assessment & Plan (12/31/2020 2:22 PM CDT): Hi fibver diet with miralax daily and return prn. Hx of colonic polyp 11/08/2018 Overview (11/08/2018): Added automatically from request for surgery [id number] Osteoporosis 07/27/2013 Overview (07/23/2016): Osteoporosis Encounters Date Type Department Care Team Description 10/10/2024 Results Follow-Up [facility] Gastroenterology at [address] [place] [address] Mary Fishman MD Surgical pathology 09/28/2024 9:49 AM CDT Anesthesia Event [address] [address] Tony Chavarria MD 09/28/2024 9:30 AM CDT - 09/28/2024 10:00 AM CDT Surgery [address] [address] Mary Fishman MD COLON BIOPSY 09/28/2024 8:15 AM CDT - 09/28/2024 11:05 AM CDT Hospital Encounter [address] [address] Mary Fishman MD Personal history of colonic polyps; Encounter for screening colonoscopy; History of colonic polyps Discharge Disposition: Discharge to home or self care 08/19/2024 Telephone [facility] Gastroenterology at [address] [place] [address] Ashley Finnegan Prep Instructions from Last 3 Months Immunizations Immunization Administration [...] hr labor TUBAL LIGATION BTL COLONOSCOPY 10/25/2013 COLONOSCOPY 12/19/2018 - 01/17/2019 CARDIAC STENT PLACEMENT 04/20/2021 - 04/19/2022 5 stents Medical History Medical History Date Comments Hx Other Medical 2010 Colonoscopy Hyperlipidemia Hyperlipidemia Hx Other Medical 1967 ; Outc ome: 6 lb(s) 6 oz Male Hx Other Medical 1969 ; Outc ome: Female Hx Other Medical 1979 ; Outc ome: Female Clotting disorder Family [...] of Heart disease; Hypertension Paternal Grandfather Frank Marin ypertension; Heart disease Paternal Grandmother Ev Marin eart disease; Relation Name Status Comments Father Prem Sow Maternal Grandfather None Maternal Grandmother None Mother's Sister 1 Alive Mother's Sister 2 Mother's Sister 3 Other 1 Other 2 Paternal Grandfather Frank Sow Paternal Grandmother Ev Sow Alive Social History [...] staff should administer the PHQ-9) 0 10/11/2021 Personal Safety Answer Date Recorded Have you ever been in or are you currently in a harmful physical or emotional relationship or is someone making you feel afraid or unsafe? 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 Gender Identity Not on file Sexual [...] Sign Reading Time Taken Comments Blood Pressure 158/69 09/28/2024 10:43 AM CDT Pulse 63 09/28/2024 10:43 AM CDT Temperature 36.2 C (97.1 F) 09/28/2024 10:43 AM CDT Respiratory Rate 16 09/28/2024 10:43 AM CDT Oxygen Saturation 100% 09/28/2024 10:43 AM CDT Inhaled Oxygen Concentration - - Weight 62.6 kg (138 lb) 09/28/2024 8:33 AM CDT Height 157.5 cm (5' 2) 09/28/2024 8:33 AM CDT Body Mass Index 25.24 09/28/2024 8:33 AM CDT Plan of Treatment Health Maintenance Due Date Last Done Comments Hepatitis C Screening 1945 DTaP/Tdap/Td Vaccine (1 - Tdap) 10/08/1958 Hepatitis B Screening 10/08/1965 Well Visit 65+ 10/08/2012 Depression Screening 10/11/2022 10/11/2021, 10/06/19 20 Osteoporosis Screening-Bone Density Scan 02/05/2024 02/04/2022, 08/05/2017, 08/16/2015 Influenza Vaccine (Season Ended) 2024 01/31/2019, 03/16/2018, 02/02/2018, Additional history exists Fall Risk Assessment 09/28/2025 09/28/2024 Pneumococcal vaccine 65+ Completed 05/07/2017, 02/19 Zoster Vaccine Completed 03/16/2018, 12/20, 09/16/2012 Breast Cancer Screening-Mammogram Discontinued 01/31/2022, 09/21/2018, 09/08/2016 Colon Cancer Screening-CT Colonography Discontinued 09/28/2024, 12/23/2018, 10/25/2013, Additional history exists Colon Cancer Screening-Colonoscopy Discontinued 09/28/2024, 12/23/2018, 10/25/2013, Additional history exists Colon Cancer Screening-DNA Stool Discontinued 09/28/2024, 12/23/2018, 10/25/2013, Additional history exists Colon Cancer Screening-FIT Discontinued 09/28, 12/23/2018, 10/25/2013, Additional history exists Colon Cancer Screening-FOBT Discontinued 09/18, 12/23/2018, 10/25/2013, Additional history exists Colon Cancer Screening-Sigmoidoscopy Discontinued 09/28/2024, 12/23/2018, 10/25/2013, Additional history exists Colorectal Cancer Screening Discontinued Medical Devices Implanted Type Area Medical Imaging Director Device Identifier Shelf Expiration Date Model / Serial / Lot [employer] Synergy Xd 3mm 48mm System Coronary Stent Everolimus [id number] - S0 - [id number] Implanted:Qty: 1 on 12/24/2021 by Zach Botello MD at [facility] Stent [employer] 10/02/2023 [id number] 300 / 0 / [id number] [employer] Synergy Xd Monorail 3.5mm 38mm 144cm Delivery System 1 Access [id number] - S0 - [id number] Implanted:Qty: 1 on 12/24/2021 by Zach Botello MD at [facility] Stent [employer] 06/10/2023 [id number] 350 / 0 / [id number] Description:RCA [employer] Synergy Xd Monorail 3mm 16mm 144cm Delivery System 1 Access Port [id number] - S0 - [id number] Implanted:Qty: 1 on 12/24/2021 by Zach Botello MD at [facility] Stent [employer] 06/24/2023 [id number] 300 / 0 / [id number] [employer] Synergy Xd 3mm 48mm System Coronary Stent Everolimus [id number] - S0 - [id number] Implanted:Qty: 1 on 12/24/2021 by Zach Botello MD at [facility] Stent [employer] 10/02/2023 [id number] 300 / 0 / [id number] [employer] Stent Drug Eluting S Megatron Us Mr 3.36i33ac [id number] - S0 - [id number] Implanted:Qty: 1 on 12/24/2021 by Zach Botello MD at [facility] Stent [employer] 05/08/2022 [id number] 350 / 0 / [id number] Procedures Procedure Name Priority Date/Time Associated Diagnosis Comments SURGICAL PATHOLOGY STAT 09/28/2024 2: 00 PM CDT History of colonic polyps Encounter for screening colonoscopy COLON BIOPSY 09/28/2024 9:38 AM CDT Personal history of colonic polyps Encounter for screening colonoscopy COLONOSCOPY 09/28/2024 8:20 AM CDT DEXA AXIAL SKELETON BONE DENSITY 1 OR MORE SITES Schedule Routine, Read Routine (OP Routine) 02/04/2022 10:11 AM CDT Screening for osteoporosis Asymptomatic menopausal state MAMMOGRAPHY Schedule Routine, Read Routine (OP Routine) 01/31/2022 from Last 3 Months or Most Recently Relevant to Health Maintenance Results * Surgical pathology (09/28/2024 2:00 PM CDT) Tissue (Polyp(s), colon/colorectal, esophageal, gastric) 09/28/2024 10:07 AM CDT Narrative PATHOLOGY [facility] - 09/29/2024 10:23 AM CDT EPIC results best viewed via link to PDF [facility] Department of Pathology [address] [place] [address] Note to Patients: This report may contain a detailed description of human tissue sent by a health care provider to the laboratory for pathologic evaluation. The content of this report is essential for diagnosis and may provide important critical findings. This information may be unfamiliar to patients to review without a medical professional present. It is advised that the patient review this report in the presence of a health care provider who can answer questions and explain the details. Final Report Patient Name: SHARON DOMINGO Address: [address] [place] [address] Gender: F : 1945 (Age: 78) Service: Gastro Location: [facility] Hospital #: [id number] Patient Type: [facility] Taken: 09/28/2024 Received: 09/28/2024 Accessioned: 09/28/2024 Reported: 09/29/2024 Physician(s):Dr. Mayr Fishman M.D. Diagnosis: Sigmoid colon polyp x2, biopsy: - Tubular adenoma x2. - Negative for high-grade dysplasia. Gurwinder Ricks M.D. Report Electronically Reviewed and Signed Out By Gurwinder Ricks M.D. 09/29/2024 10:23:17 Specimen(s) Received: A: Sigmoid polyp x 2 Microscopic Description: Sections show a tubular adenoma x2. There is no evidence of high-grade dysplasia or invasive carcinoma. Clinical History: Personal history of colonic polyps. Screening colonoscopy. Gross Description: The specimen is submitted in a single formalin filled container labeled SHARON DOMINGO and sigmoid polyp x2. It is 3 fragments of singh tissue measuring 2 mm. All in one cassette. Michael James R.N., P.A./Mireille Resendiz M.D. REPORT IMAGES AND SCANNED DOCUMENTS, IF INCLUDED, ONLY VIEWABLE IN PDF VERSION OF REPORT The performance characteristics of some immunohistochemical stains, fluorescence in-situ hybridization tests and immunophenotyping by flow cytometry cited in this report (if any) were determined by the Surgical Pathology Department at [facility] as part of an ongoing vice president quality program and in compliance with federally mandated regulations drawn from the Clinical Laboratory Improvement Act of 1988 (CLIA '88). Some of these tests rely on the use of analyte specific reagents and are subject to specific labeling requirements by the US Food and Drug Administration. Such diagnostic tests may only be performed in a facility that is certified by the Department of Health and Human Services as a high complexity laboratory under CLIA '88. The FDA has determined that such clearance or approval is not necessary. This test is used for clinical purposes. It should not be regarded as investigational or for research. Nevertheless, federal rules concerning the medical use of analyte specific reagents require that the following disclaimer be attached to the report: This test was developed and its performance characteristics determined by the Surgical Pathology Department [facility]. It has not been cleared or approved by the U. S. Food and Drug Administration. Note for decalcified specimens: This assay has not been validated on decalcified tissues. Results should be interpreted with caution given the possibility of false negativity on decalcified specimens Mary Fishman MD LAB PATHOLOGY ORDERABLES F inal Result PATHOLOGY [facility] [address] [place] [address] * Colonoscopy (09/28/2024 8:20 AM CDT) Anatomical Region Laterality Modality Other Narrative Procedure Note Mary Fishman MD - 09/28/2024 8:20 AM CDT [facility] Patient Name: Sharon Domingo Procedure Date: 09/28/2024 8:20 AM Date of : 1945 Admit Type: Outpatient Age: 78 Gender: Female Attending MD: Mary Fishman M.D. Room: [facility] ENDOSCOPY ROOM 1 Note Status: Finalized Patient Profile: This is a 78 year old female. History of adenoma polyps in the past. No family history of coloncancer. Procedure: Colonoscopy Indications: Surveillance: Personal history of colonic polyps (unknown histology) on last colonoscopy more than 5 years ago, Last colonoscopy: December 2018 Referring MD: Cha Leon M.D. Providers: Mary Fishman M.D. Impression: - Two 3 mm polyps in the sigmoid colon, removedwith a jumbo cold forceps. Resected and retrieved. - Internal hemorrhoids. Recommendation: - Await pathology results. - Repeat colonoscopy in 5 years for surveillance. Medicines: Monitored Anesthesia Care Complications: No immediate complications. Estimated Blood Loss: Estimated blood loss: none. Procedure: Pre-Anesthesia Assessment: - Prior to the procedure, a History and Physicalwas performed, and patient medications and allergieswere reviewed. The patient's tolerance of previous anesthesia was also reviewed. The risks andbenefits of the procedure and the sedation options and risks were discussed with the patient. All questions were answered, and informed consent was obtained. Prior Anticoagulants: The patient has taken noanticoagulant or antiplatelet agents. ASA Grade Assessment: Per anesthesia note and evaluation. After reviewing the risks and benefits, the patient was deemed in satisfactory condition to undergo the procedure. The benefits, risks and alternatives of theprocedure and sedation were discussed and informed consentwas obtained. All questions were answered. Please referto the signed informed consent document in the medical record. The bowel preparation used was Miralax via split dose instruction. The bowel preparation usedwas bisacodyl tablets via split dose instruction. The scope was passed under direct vision. The Pediatric Colonoscope [id number] was introduced through the anus and advanced to the the cecum, identified by appendiceal orifice and ileocecalvalve. The quality of the bowel preparation was good.Bowel prep was administered using a split dose. Findings: The perianal and digital rectal examinations were normal. The cecum appeared normal. The descending colon and transverse colon appeared normal. Two sessile polyps were found in the sigmoid colon. The polyps were 3mm in size. These polyps were removed with a jumbo cold forceps.Resection and retrieval were complete. Internal hemorrhoids were found during retroflexion. The hemorrhoids were large to medium-sized. Electronically signed by Mary Fishman M.D. Mary Fishman M.D. 09/28/2024 10:22:55 AM Number of Addenda: 0 Note Initiated On: 09/28/2024 8:20 AM Procedure Code(s): --- Professional --- 04296, Colonoscopy, flexible; with biopsy, single or multiple Diagnosis Code(s): --- Professional --- Z86.010, Personal history of colonic polyps K64.8, Other hemorrhoids D12.5, Benign neoplasm of sigmoid colon CPT copyright 2020 [employer]. All rights reserved. The codes documented in this report are preliminary and upon revit drafter reviewmay be revised to meet current compliance requirements. Recognized by the [employer] Society for [employer] for promoting quality in endoscopy Mary Fishman MD ENDOSCOPY PROCEDURES Final Result * Dexa Axial Skeleton Bone Density 1 or 2 Site (02/04/2022 10:11 AM CDT) Anatomical Region Laterality Modality Body N/A Other 02/05/2022 6:31 PM CDT Narrative 02/05/2022 6:32 PM CDT EXAM DESCRIPTION: DEXA AXIAL SKELETON BONE DENSITY 1 OR MORE SITES REASON FOR STUDY: 76 y/o year old F with given history of screening. 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 MF: CECI Report ID: [id number] Reading Location: [place] [address] Procedure Note Gurwinder Madison MD - 02/05/2022 EXAM DESCRIPTION: DEXA AXIAL SKELETON BONE DENSITY 1 OR MORE SITES REASON FOR STUDY: 76 y/o year old F with given history ofscreening. Postmenopausal Medical Imaging Director/Model: [employer] SL (S/N [id number]) CLINICAL INFORMATION: Current height: 63 inches Maximum [...] Gurwinder Madison M.D. MF: CECI Report ID: [id number] Reading Location: [place] [address] Steff Cruz NP IMG DXA PROCEDURES Final Result * MAMMOGRAPHY (01/31/2022) Anatomical Region Laterality Modality Breast Mammography us Steff Cruz NP IMG MAMMO PROCEDURES Sarah l Result from Last 3 Months or Most Recently Relevant to Health Maintenance Insurance MEDICARE [facility] [address] [place] [phone] MEDICARE [facility] [address] [place] [phone] MEDICARE [facility] Advance Directives For more information, please contact: [phone] * Full Code (Latest Code Status on File) Date Activated Date Inactivated Comments 09/28/2024 8:21 AM 09/28/2024 3:16 PM * Full Code Date Activated Date Inactivated Comments 09/28/2024 8:21 AM 09/28/2024 8:21 AM * Full Code Date Activated Date Inactivated Comments 12/24/2021 11:56 AM 12/25/2021 7:20 PM * Full Code Date Activated Date Inactivated Comments 05/30/2021 9:46 AM 05/30/2021 4:06 PM * Full Code Date Activated Date Inactivated Comments 05/30/2021 9:46 AM 05/30/2021 9:46 AM Care Teams Player Manager Relationship Specialty Start Date End Date Cha Leon MD [address] [place] [address] PCP - General 06/27/16
--- OUTSIDE RECORDS SUMMARY | 2024-10-31 10:22 | XMS_ITS | Encounter Summary ---
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 positive COVID result and will fax to [phone] for it to be scanned under the media tab. 12.24.21 [facility] COVID test was pre-procedural. Routine retesting not recommended for 120 days or expiration date of 03.10.22 without an infectious disease physician consult. Zane Cullen 12.24.21 Added based on recent COVID infection. 11/10/2021 12/24/2021 03/10/2022 3:[address] COVID: Recovered Comment:Added based on recent COVID infection. 12/24/2021 03/12/2022 03/24/2022 3:[address] documented as of this encounter Care Teams School Psychology Specialist Relationship Specialty Start Date End Date Cha Leon MD [address] [place] [address] PCP - General 06/27/16 documented as of this encounter
--- OUTSIDE RECORDS SUMMARY | 2024-10-31 10:22 | XMS_ITS | Encounter Summary ---
Author Organization [facility] Healthcare Address [address] [place] [address] Care Team Providers Care Manager Of Software Name Role Phone Cha Leon MD Primary Care Provider [phone] Encounter Details Date Type Department Care Team (Latest Contact Info) Description 10/10/2024 Results Follow-Up [facility] Gastroenterology at [address] [place] [address] Mary Fishman MD [address] [place] [address] [address] [place] [address] Surgical pathology Social History Tobacco Use Types Packs/Day Years Used Date Smoking Tobacco: Former Cigarettes 1997 Passive Smoke Exposure: Past Smokeless Tobacco: Never Alcohol Use Standard Drinks/Week [...] on file 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
--- OUTSIDE RECORDS SUMMARY | 2024-10-31 10:22 | XMS_ITS | Clinical Summary ---
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
--- OUTSIDE RECORDS SUMMARY | 2024-10-31 10:22 | XMS_ITS | Referral Summary ---
Author Organization [facility] Address [address] [place] [address] Care Team Providers Care International Flight Attendant Name Role Phone Cha Leon MD Primary Care Provider [phone] Encounters Date Type Department Care Team Description 10/10/2024 Results Follow-Up [facility] Gastroenterology at [address] [place] [address] Mary Fishman MD Surgical pathology 09/28/2024 9:49 AM CDT Anesthesia Event [address] [address] Tony Chavarria MD 09/28/2024 9:30 AM CDT - 09/28/2024 10:00 AM CDT Surgery [address] [address] Mary Fishman MD COLON BIOPSY 09/28/2024 8:15 AM CDT - 09/28/2024 11:05 AM CDT Hospital Encounter [address] [address] Mary Fishman MD Personal history of colonic polyps; Encounter for screening colonoscopy; History of colonic polyps Discharge Disposition: Discharge to home or self care 08/19/2024 Telephone [facility] Gastroenterology at [address] [place] [address] Ashley Finnegan Prep Instructions from Last 3 Months Allergies Active Allergy [...] artery disease) 12/24/2021 Coronary artery disease involving [place] heart 0 12/19/2021 Overview (12/19/2021): Added automatically from request for surgery [id number] Osteoarthritis 11/18/2021 Hemorrhoids 02/12/2021 Overview (02/12/2021): Added automatically from request for surgery [id number] Grade III hemorrhoids 12/31/2020 Assessment & Plan (11/18/2021 2:20 PM CDT): anusol HC supps and return prn Assessment & Plan (02/12/2021 12:52 PM CDT): III roids IRC series Assessment & Plan (12/31/2020 2:22 PM CDT): Hi fibver diet with miralax daily and return prn. 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 Stent [employer] 10/02/2023 [id number] 300 / 0 / [id number] [employer] Synergy Xd Monorail 3.5mm 38mm 144cm Delivery System 1 Access [id number] - S0 - [id number] Implanted:Qty: 1 on 12/24/2021 by Zach Botello MD at [facility] Stent [employer] 06/10/2023 [id number] 350 / 0 / [id number] Description:RCA [employer] Synergy Xd Monorail 3mm 16mm 144cm Delivery System 1 Access Port [id number] - S0 - [id number] Implanted:Qty: 1 on 12/24/2021 by Zach Botello MD at [facility] Stent [employer] 06/24/2023 [id number] 300 / 0 / [id number] [employer] Synergy Xd 3mm 48mm System Coronary Stent Everolimus [id number] - S0 - [id number] Implanted:Qty: 1 on 12/24/2021 by Zach Botello MD at [facility] Stent [employer] 10/02/2023 [id number] 300 / 0 / [id number] [employer] Stent Drug Eluting S Megatron Us Mr 3.50z94tm [id number] - S0 - [id number] Implanted:Qty: 1 on 12/24/2021 by Zach Botello MD at [facility] Stent [employer] 05/08/2022 [id number] 350 / 0 / [id number] Procedures Procedure Name Priority Date/Time Associated Diagnosis [...] gastric) 09/28/2024 10:07 AM CDT Narrative PATHOLOGY [facility]) - 09/29/2024 10:23 AM CDT EPIC results best viewed via link to PDF [facility] Department of Pathology [address] [place] [address] Note to Patients: This report may contain [...] Final Report Patient Name: SHARON DOMINGO Address: [address] [place] [address] Gender: F : 1945 (Age: 78) Service: Gastro Location: [facility] Hospital #: [id number] Patient Type: [facility] Taken: 09/28/2024 Received: 09/28/2024 Accessioned: 09/28/2024 Reported: 09/29/2024 Physician(s):Dr. Mary Fishman M.D. Diagnosis: Sigmoid colon polyp x2, [...] [facility] as part of an ongoing supplier quality manager program and in compliance with federally mandated [...] characteristics determined by the Surgical Pathology Department [facility]. It has not been cleared or approved by the U. S. Food and Drug Administration. Note for decalcified specimens: This assay has not been validated on decalcified tissues. Results should be interpreted with caution given the possibility of false negativity on decalcified specimens Mary Fishman MD LAB PATHOLOGY ORDERABLES F inal Result PATHOLOGY [facility]) [address] [id number] * Colonoscopy (09/28/2024 8:20 AM CDT) Anatomical Region Laterality Modality Other Narrative Procedure Note Mary Fishman MD - 09/28/2024 8:20 AM CDT [facility] Patient Name: Sharon Domingo Procedure Date: 09/28/2024 8:20 AM Date of : 1945 Admit Type: Outpatient Age: 78 Gender: Female Attending MD: Mary Fishman M.D. Room: [facility] ENDOSCOPY ROOM 1 Note Status: Finalized Patient [...] passed under direct vision. The Pediatric Colonoscope [id number] was introduced through the anus and advanced [...] 8:20 AM Procedure Code(s): --- Professional --- 90759, Colonoscopy, flexible; with biopsy, single or multiple Diagnosis Code(s): --- Professional --- Z86.010, Personal history of colonic polyps K64.8, Other hemorrhoids D12.5, Benign neoplasm of sigmoid colon CPT copyright 2020 [employer]. All rights reserved. The codes documented in this report are preliminary and upon investment executive reviewmay be revised to meet current compliance requirements. Recognized by the [employer] for promoting quality [...] F with given history of screening. Postmenopausal Census Clerk/Model: [employer] (S/N 31781) CLINICAL INFORMATION: Current height: 63 inches Maximum [...] Gurwinder Madison M.D. MF: CECI Report ID: [id number] Reading Location: [id number] Procedure Note Gurwinder Madison MD - 02/05/2022 EXAM DESCRIPTION: DEXA AXIAL SKELETON BONE DENSITY 1 OR MORE SITES REASON FOR STUDY: 76 y/o year old F with given history ofscreening. Postmenopausal Census Clerk/Model: [employer] SL (S/N [id number]) CLINICAL INFORMATION: Current height: 63 inches Maximum [...] 02/05/2022 6:32 PM - Electronically signed by Gurwidner Madison M.D. MF: CECI Report ID: [id number] [place] Location: [id number] Steff Cruz WOMEN'S GARMENT FITTER IMG DXA PROCEDURES Final Result * MAMMOGRAPHY (01/31/2022) Anatomical Region Laterality Modality Breast Mammography Steff Cruz WOMEN'S GARMENT FITTER IMG MAMMO PROCEDURES Sarah l Result from Last 3 Months or Most Recently Relevant to Health Maintenance Insurance MEDICARE COMM[facility]ITY [facility] INS [facility] MEDICARE [place] MEDICARE [facility] [place] [address] Advance Directives For more information, please contact: [phone] * Full Code (Latest Code Status on [...] 9:46 AM 05/30/2021 9:46 AM Care Teams International Flight Attendant Relationship Specialty Start Date End Date Cha Leon MD [address] [place] [address] PCP - General 06/27/16
== END 2024-10-31 10:16 | disposition home or self-care (01) ==
LOC: CHSIMG 10:17
PROVIDERS: PCP Internal Medicine; Visit Provider Internal Medicine
DX: M54.50 Low back pain, unspecified (principal); M43.06 Spondylolysis, lumbar region
CPT/HCPCS: 72100

== ENCOUNTER 2024-11-05 07:28 | Outpatient (CLI) | payer MEDICARE, OTHER, SELFPAY ==
--- NOTE | ~2024-11-05 | MR_ITS ---
MRI of the lumbar spine Clinical History: Back pain Technique: Axial T2-weighted images, and sagittal T1-weighted, T2-weighted, and T2 fat-sat images wer e acquired. Findings: There is probable compression fracture of the inferior endplate region of L5 without signif icant loss of height, with hypointense fracture line and surrounding marrow edema. There are mild ella ctive signal changes about the T12-L1 disc space and L3-L4 disc space. There is 4 mm anterolisthesis of L5 over S1. At L1-L2, there is moderate degenerative disc narrowing. There is mild disc bulge. No spinal canal st enosis. There is mild left neural foraminal narrowing. No right neural foraminal narrowing. At L2-L3, there is moderate degenerative disc narrowing. There is diffuse disc bulge with mild facet hypertrophy. No spinal canal stenosis. There is mild to moderate right neural foraminal narrowing. Le ft neural foramen preserved. At L3-L4, there is diffuse disc bulge with mild facet hypertrophy. No spinal canal stenosis. There is severe bilateral neural foraminal narrowing. At L4-L5, there is diffuse disc bulge with moderate facet arthropathy. There is moderate spinal canal stenosis. There is severe bilateral neural foraminal compromise. At L5-S1, there is diffuse disc bulge/uncovering with advanced facet arthropathy. No central canal st enosis. There is mild to moderate bilateral neural foraminal narrowing. Paravertebral soft tissues are unremarkable. Impression: Acute compression fracture of L5 without significant loss of height. Moderate to advanced degenerative spondylitic changes, as above, worst at L4-L5. Reviewed, dictated and finalized at [facility]. Impression: Acute compression fracture of L5 without significant loss of height. Moderate to advanced degenerative spondylitic changes, as above, worst at L4-L5 .
--- OUTSIDE RECORDS SUMMARY | 2024-11-05 07:31 | XMS_ITS | Clinical Summary ---
Author Organization 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
--- OUTSIDE RECORDS SUMMARY | 2024-11-05 07:31 | XMS_ITS | Data Portability ---
Author Organization [place] [facility], Main Office Address [address] [place] [address] Care Team Providers Care Bird Sitter Name Role Phone BRAD SANCHEZ Primary Care Provider [phone] BRAD SANCHEZ Referring Provider Assessment Encounter Date [...] pulse. X-rays from previously were reviewed, demonstrating cbak-hz-icab CMC arthritis She has thumb CMC arthritis [...] doing good, abrasions have resolved. 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 She rates her pain 0/10. She has been complaint with wearing the brace. Does not want to wear the brace anymore. Physical Exam: General: Normal appearance. No acute distress. Inspection: Incisions is well healed. No signs or symptoms of infection. Minimal swelling. No evidence of abrasions or bruising. Palpation: Nontender with palpitation. ROM: Able to do gentle ROM. Strenghth: Credit Negotiator strength is similar to contralateral side. Sensation: [...] to patient to work on ROM and lumber press operator strength. Did not want formal PT at this time. Continue with ice and elevation for pain and swelling. Unable to take NSAIDs due to blood thinners. Follow Up: 6-7 weeks. Anticipate discharge at this time. deandra Not available 06/08/2024 12:43:34 07/27/2024 07/27/2024 78 year old femjovanna burleson presents today for her postop follow up after undergoing left cmc arthroplasty with tendon interposition on April [address] Izquierdo. Overall doing good, she rates her pain 0/10. She has been working on exercises on her own and states the hand feels stronger but she still struggles with lumber press operator strength. Physical Exam: Incisions is well healed. No edema. Nontender with palpitation. Able to do gentle ROM. Credit Negotiator strength is similar to contralateral side. Sensation intact. At this point we no longer need to see her back for recheck. She can continue with hand exercises to improve lumber press operator strength. We can see her back as [...] or more view 025 06/08/19 25 [email or web address] [facility] Sonali Zhang, [address], [place], [address], 5 10:26:41 XR, hand, 3 or more view 024 02/10/20 24 SEBASTIÁN [facility] [place], [address], [place], [address], 4 09:52:09 Medication Orders None record ed. Patient TargetsNo targets recorded. Patient InstructionsNo instructions recorded. Reason for Referral None Reported. Results Created Date Observation Date Name Description Value Unit Range Abnormal Flag Note LastModifiedBy Organization Detail LastModifiedTime 02/10/20 XR, hand, 3 or more view No observ ation record ed. [email or web address] [facility] [place] [address] [facility] [address], [place], [address], 02/10/2024 11:39:06 06/08/19 25 XR, hand, 3 or more view No observ ation record ed. deandra [facility] [place] [address], [place], [address], 06/08/2024 12:43:58 Result Notes None recorded. 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 Procedures Surgical History Date Name Laterality Status Provider Name and Address Organization Details Recorded Time 5 Hand completed Monica Hays [facility] [place] [facility] 05/06/2024 08:54:20 4 Ortho - Cortisone Injection completed Dean Izquierdo MD [address], [place], [address], [facility] 08/05/2023 09:52:55 3 Ortho - Cortisone Injection completed Dean Izquierdo MD [address], [place], [address], [facility] 12/24/2022 22:19:30 Foot Surgery completed Monica Hays [facility] [place] [facility] 02/10/2024 11:35:50 Hand completed Monica Hays [facility] [place] [facility] 02/10/2024 11:36:05 Imaging Results None recorded. Procedure Notes None recorded. Medical Equipment None Reported. Allergies Allergen ID Allergen Name Allergen Category Reaction Reaction Severity Criticality Documentation Date Start Date Code Code System Note Provider Name and Address Organization Details Recorded Time 1040 Product containin g penicilli n (product) medicatio n Not available Not available Not available 06/18/2022 67146 8001 SNOMED Not Available [facility] 3 00:59:28 1041 Levaquin medicatio n other Not available Not available 06/18/2022 79901 2 RxNorm Not Available [facility] 3 00:59:28 1042 ciproflox acin medicatio n Not available Not available Not available 06/18/2022 2551 RxNorm Not Available [facility] 3 00:59:28 1043 Biaxin medicatio n Not available Not available Not available 06/18/2022 56029 9 RxNorm Not Available [facility] 3 00:59:28 1044 Bactrim medicatio n Not available Not available Not available 06/18/2022 83694 9 RxNorm Not Available [facility] 3 00:59:28 1045 Augmentin medicatio n Not available Not available Not available 06/18/2022 83973 2 RxNorm Not Available [facility] 3 00:59:28 Medications Name Sig Start Date [...] 1 mg by injection route. 2023 active [facility]: 0003- 0494- 20 Not Available Not Available [...] administe red by the provider 08/02 completed [facility]: 0409- 4276- 17 Not Available Not Available Not Available Colcrys 0.6 mg tablet active Not Available Not Available No t Available Brilinta 90 mg tablet TAKE 1 TABLET BY MOUTH TWICE DAILY 08/02 completed Not Available Not Available Not Available ropivacaine (PF) 5 mg/mL (0.5 %) injection solution Take 1 mg by injection route. 2023 active [facility] 54875 -064- 01 Not Available Not Available Not [...] Not Available Vitals Date Recorded Body height Provider Name an d Address Organization Details Last Updated DateTime 05/11/2024 160.02 cm Solange Wattsmons [employer] 05/11/2024 10:34:14 Date Recorded Body height Body mass index (BMI) Body weight Provider Name and Address Organization Details Last Updated DateTime 06/08/2024 160.02 cm 23.6 kg/m2 92546.79 g DANYELL Knapp [employer] 06/08/2024 10:36:20 Date Recorded Body height Body mass index (BMI) Body weight Provider Name and Address Organization Details Last Updated DateTime 07/27/2024 157.48 cm 24.3 kg/m2 75907.79 g Demetra Bloom CNA [employer] 07/27/2024 10:53:56 Date Recorded Body height Body mass index (BMI) Body weight Provider Name and Address Organization Details Last Updated DateTime 02/10/2024 160.02 cm 23.6 kg/m2 68572.79 g DANYELL Knapp DC Victor [facility] [employer] [facility] 02/10/2024 11:32:59 Date Recorded Body height Body mass index (BMI) Body weight Provider Name and Address Organization Details Last Updated DateTime 04/06/2024 160.02 cm 23.6 kg/m2 29832.79 g Monica Hays Jovanna DC Victor [facility] [email or web address] [facility] 04/06/2024 09:56:10 Social History Question Answer Notes LastModified by [employer] Details LastModified Time Tobacco Smoking Status Unknown If Ever Smoked Not Available [employer] 06/18/2022 00:44:10 What Was The Date Of Your Most Recent Tobacco Screening? 02/10/2024 Information not available 02/10/2024 Sex: Unknown Functional Status Question Answer Note LastModified by [employer] Details LastModified Time What is your level of alcohol consumption? None [id number] Information not available 06/18/2022 Mental Status None recorded. Family History Relationship Description Onset Age of this Age Resolved Age Notes LastModified by Organization Details LastModified Time Paternal Grandfather Heart disease [email or web address] Not available 2023 11:34:10 Father History of malignant neoplasm Not available 2023 11:34:51 Maternal Grandmother Hypertensive disorder [email or web address] Not available 2023 11:35:12 Maternal Grandmother Family history of stroke [email or web address] Not available 2023 11:35:21 Medical History Condition Response OSTEOPOROSIS Y CORONARY ARTERY DISEASE (CAD) Y ARTHRITIS Y USE OF BLOOD THINNERS Y HEART DISEASE/HEART PROBLEMS Y Gynecological HistoryNo gynecological history recorded. Obstetrics History GPAL:G 0 P 0 0 0 0 Past Encounters Encounter ID Performer Location Encounter Start Date Encounter Closed Date Diagnosis/Indication Diagnosis SNOMED-CT Code Diagnosis ICD10 Code Diagnosis Note [id number] Eduardo Borden MD [facility] Sonali Zhang [address] [place] [address] 06/19/2020 00:00:00 06/19/2020 11:57:31 [id number] Eduardo Borden MD [facility] [place] [address] [place] [address] 08/03/2020 00:00:00 08/03/2020 10:33:47 [id number] Eduardo Borden MD [facility] [place] [address] [place] [address] 09/11/2020 00:00:00 09/11/2020 12:47:26 [id number] Eduardo Borden MD [facility] [place] [address] [place] [address] 11/27/2020 00:00:00 11/27/2020 11:18:13 [id number] Eduardo Borden MD [facility] [place] [address] [place] [address] 01/08/2021 00:00:00 01/08/2021 12:33:23 [id number] Eduardo Borden MD [facility] [place] [address] [place] [address] 06/18/2021 00:00:00 06/18/2021 17:13:23 [id number] Eduardo Borden MD [facility] [place] [address] [place] [address] 03/11/2022 00:00:00 03/11/2022 10:06:30 [id number] Dean Izquierdo MD [facility] [place] [address] [place] [address] 12/23/2022 10:13:03 12/23/2022 10:36:32 Pain of left hand 1394100552 16885 M79.296 [id number] Dean Izquierdo MD [facility] [place] [address] [place] [address] 08/05/2023 09:22:28 08/05/2023 09:37:37 Pain of left hand 0465998326 58565 M79.081 [id number] Dean Izquierdo MD [facility] [place] [address] [place] [address] 02/10/2024 11:10:43 02/10/2024 12:07:13 Pain of left hand 6814062305 66964 M79.840 [id number] [address] [facility] [place] [address] [place] [address] 04/06/2024 09:53:41 04/06/2024 10:17:12 Pain of left hand 7443465066 49586 M79.642 Osteoarthritis 415458236 M19.[id number] [facility] [place] [address] [place] [address] 05/11/2024 10:29:57 05/11/2024 11:05:50 Pain of left hand 0794691457 68937 M79.642 Postoperative visit 1836 46213 Z48.89 Osteoarthr osis of the carpometacarpal joint of the thumb 94257230 M18.9 [id number] [facility] [place] [address] [place] [address] 06/08/2024 10:34:48 06/08/2024 11:00:22 Pain of left hand 7589733412 68691 M79.642 Osteoarthr osis of the carpometacarpal joint of the thumb 07204644 M18.9 Postoperative visit 1836 62387 Z48.89 [id number] [facility] [place] [address] [place] [address] 07/27/2024 10:49:15 07/27/2024 11:37:56 Pain of left hand 6630420994 51671 M79.642 Osteoarthr osis of the carpometacarpal joint of the thumb 70590889 M18.9 Health Concerns Section Related Observation LastModified by Organization Detai ls LastModified Time None Recorded Concern Status LastModified by Organization Details LastModified Time None Recorded Advance Directives Directive None Recorded Payers Insurance Date Sequence Insurance Name Policy Number Policy Jenkins Covered Member ID Jenkins Member ID Guarantor Name 07/19/2024 1 [place]ARE[place] (MEDICARE) Sahron L Osterbuhr [id number] Sharon Osterbuhr 08/02/2024 2 [employer] [place] (MEDICARE SUPPLEMENT) Sharon Gupta Osterbuhr [id number] Sharon Osterbuhr 07/19/2024 [employer] - DMEPOS ASSIGNED (MEDICARE DME REGION B) Sharon Gupta Osterbuhr [id number] Sharon Osterbuhr OBGyn Episode No OBEpisode recorded.
--- OUTSIDE RECORDS SUMMARY | 2024-11-05 07:32 | XMS_ITS | Encounter Summary ---
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 positive COVID result and will fax to [phone] for it to be scanned under the media tab. 12.24.21 [facility] COVID test was pre-procedural. Routine retesting not recommended for 120 days or expiration date of 03.10.22 without an infectious disease physician consult. Zane Cullen 12.24.21 Added based on recent COVID infection. 11/10/2021 12/24/2021 03/10/2022 3:[address] COVID: Recovered Comment:Added based on recent COVID infection. 12/24/2021 03/12/2022 03/24/2022 3:[address] documented as of this encounter Care Teams Dials Supervisor Relationship Specialty Start Date End Date Cha Leon MD [address] [place] [address] PCP - General 06/27/16 documented as of this encounter
--- OUTSIDE RECORDS SUMMARY | 2024-11-05 07:32 | XMS_ITS | Encounter Summary ---
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
--- OUTSIDE RECORDS SUMMARY | 2024-11-05 07:32 | XMS_ITS | Referral Summary ---
Author Organization [facility] Address [address] [place] [address] Care Team Providers Care Head Banquet Waiter/Waitress Name Role Phone Cha Leon MD Primary Care Provider [phone] Encounters Date Type Department Care Team Description 10/10/2024 Results Follow-Up [facility] Medical Group Gastroenterology at [address] [place] [address] Mary Fishman MD Surgical pathology 09/28/2024 9:49 AM CDT Anesthesia Event [address] [address] Tony Chavarria MD 09/28/2024 9:30 AM CDT - 09/28/2024 10:00 AM CDT Surgery [address] [address] Mary Fishman MD COLON BIOPSY 09/28/2024 8:15 AM CDT - 09/28/2024 11:05 AM CDT Hospital Encounter [address] [address] Mary Fishman MD Personal history of colonic polyps; Encounter for screening colonoscopy; History of colonic polyps Discharge Disposition: Discharge to home or self care 08/19/[address] [facility] Medical Group Gastroenterology at [address] [place] [address] Ashley Finnegan Prep Instructions from Last 3 [...] (10 mg total) by mouth daily Active cholecalcifero l (VITAMIN D-3) 1,000 unit Take 1 tablet/capsule (1,000 Units total) by mouth daily Active coenzyme Q10 400 mg capsule Activ e pantoprazole DR (PROTONIX) 40 mg EC tablet Take 1 tablet (40 mg total) by mouth daily 022 Active hydrocortisone (ANUSOL-HC) 25 mg suppositoryInd ications:Grade III hemorrhoids Insert 1 suppository (25 mg total) into the rectum nightly 30 suppository 3 023 Active Additional Information Patient not taking.Reported on 06/21/2024 atorvastatin (LIPITOR) 80 mg tablet TAKE 1 TABLET BY MOUTH EVERY DAY 90 tablet 2 024 Active losartan (COZAAR) 50 mg tablet TAKE 1 TABLET BY MOUTH EVERY DAY 90 tablet 2 024 Active aspirin 81 mg enteric coated tablet TAKE 1 TABLET BY MOUTH EVERY DAY 120 tablet 1 024 Active metoprolol XL (TOPROL-XL) 25 mg extended release tablet TAKE 1 TABLET (25 MG TOTAL) BY MOUTH DAILY. 90 tablet 3 025 2025 Active clopidogreL (PLAVIX) 75 mg tablet TAKE 1 TABLET BY MOUTH EVERY DAY 90 tablet 2 025 Active clopidogreL (PLAVIX) 75 mg tablet Take 1 tablet (75 mg total) by mouth daily 90 tablet 3 024 2024 Discontinued Active Problems Problem Noted Date Diagnosed Date Personal history of colonic polyps 12/03/2023 Encounter for screening colonoscopy 12/03/2023 Rectal bleeding 04/01/2022 History of coronary artery stent placement 01/09 Ischemic cardiomyopathy 01/09/2022 CAD (coronary artery disease) 12/24/2021 Coronary artery disease involving [place] heart 0 12/19/2021 Overview (12/19/2021): Added automatically from request for surgery [id number] Osteoarthritis 11/18/2021 Hemorrhoids 02/12/2021 Overview (02/12/2021): Added automatically from request for surgery [id number] Grade III hemorrhoids 12/31/2020 Assessment & Plan (11/18/2021 2:20 PM CDT): anusol HC supps and return prn Assessment & Plan (02/12/2021 12:52 PM CDT): III roids IRC series Assessment & Plan (12/31/2020 2:22 PM CDT): Hi fibver diet with miralax daily and return prn. 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 Gender Identity Not on file Sexual [...] on file Medical Devices Implanted Type Area Tobacco Sieve Operator Device Identifier Shelf Expiration Date Model / Serial / Lot [employer] Synergy Xd 3mm 48mm System Coronary Stent Everolimus [id number] - S0 - [id number] Implanted:Qty: 1 on 12/24/2021 by Zach Botello MD at [facility] Stent [employer] 10/02/2023 [id number] 300 / 0 / [id number] [employer] Synergy Xd Monorail 3.5mm 38mm 144cm Delivery System 1 Access [id number] - S0 - [id number] Implanted:Qty: 1 on 12/24/2021 by Zach Botello MD at [facility] Stent [employer] Carmen 06/10/2023 [id number] 350 / 0 / [id number] Description:RCA [employer] Synergy Xd Monorail 3mm 16mm 144cm Delivery System 1 Access Port [id number] - S0 - [id number] Implanted:Qty: 1 on 12/24/2021 by Zach Botello MD at [facility] Stent [employer] 06/24/2023 [id number] 300 / 0 / [id number] [employer] Carmen Synergy Xd 3mm 48mm System Coronary Stent Everolimus [id number] - S0 - [id number] Implanted:Qty: 1 on 12/24/2021 by Zach Botello MD at [facility] Stent [employer] 10/02/2023 [id number] 300 / 0 / [id number] [employer] Stent Drug Eluting S Megatron Us Mr 3.51a88zp [id number] - S0 - [id number] Implanted:Qty: 1 on 12/24/2021 by Zach Botello MD at [facility] Stent [employer]en 05/08/2022 [id number] 350 / 0 / [id number] Procedures Procedure Name Priority Date/Time Associated Diagnosis [...] 09/28/2024 10:07 AM CDT Narrative PATHOLOGY [facility]) - 09/29/2024 10:23 AM CDT EPIC results best viewed via link to PDF [facility] Department of Pathology [address] [place], [place] [id number] Note to Patients: This report may contain [...] Final Report Patient Name: SHARON DOMINGO Address: [address] [place] [address] Gender: F : 1945 (Age: 78) Service: Gastro Location: [facility] Hospital #: [id number] Patient Type[facility] Taken: 09/28/2024 Received: 09/28/2024 Accessioned: 09/28/2024 Reported: [...] determined by the Surgical Pathology Department at [facility] as part of an ongoing quality control operator program and in compliance with federally mandated [...] characteristics determined by the Surgical Pathology Department [facility]. It has not been cleared or approved by the U. S. Food and Drug Administration. Note for decalcified specimens: This assay has not been validated on decalcified tissues. Results should be interpreted with caution given the possibility of false negativity on decalcified specimens us Mary Fishman MD LAB PATHOLOGY ORDERABLES F inal Result Performing Organization Address City/State/[facility] Co de Phone Number PATHOLOGY [facility] [address] [place] [phone] * Colonoscopy (09/28/2024 8:20 AM CDT) Anatomical Region Laterality Modality Other Narrative Procedure Note Mary Fishman MD - 09/28/2024 8:20 AM CDT [facility] Patient Name: Sharon Domingo Procedure Date: 09/28/2024 8:20 AM Date of : 1945 Admit Type: Outpatient Age: 78 Gender: Female Attending MD: Mary Fishman M.D. Room: [facility] ENDOSCOPY ROOM 1 Note Status: Finalized Patient [...] passed under direct vision. The Pediatric Colonoscope [id number]-[id number] was introduced through the anus and advanced [...] 8:20 AM Procedure Code(s): --- Professional --- 05909, Colonoscopy, flexible; with biopsy, single or multiple Diagnosis Code(s): --- Professional --- Z86.010, Personal history of colonic polyps K64.8, Other hemorrhoids D12.5, Benign neoplasm of sigmoid colon CPT copyright 2020 [employer]. All rights reserved. The codes documented in this report are preliminary and upon food sanitarian reviewmay be revised to meet current compliance requirements. Recognized by the [employer] [employer] for promoting quality [...] F with given history of screening. Postmenopausal Tobacco Sieve Operator/Model: Omedix (S/N [id number]) CLINICAL INFORMATION: Current height: 63 inches Maximum [...] Gurwinder Madison M.D. MF: CECI Report ID: [id number] Reading Location: [address] Note Gurwinder Madison MD - 02/05/2022 EXAM DESCRIPTION: DEXA AXIAL SKELETON BONE DENSITY 1 OR MORE SITES REASON FOR STUDY: 76 y/o year old F with given history ofscreening. Postmenopausal Tobacco Sieve Operator/Model: Where's Up Discovery SL (S/N [id number]) CLINICAL INFORMATION: Current height: 63 inches Maximum [...] Gurwinder Madison M.D. MF: CECI Report ID: [id number] Reading Location: [place] [address] Steff Cruz NP IMG DXA PROCEDURES Final Result * MAMMOGRAPHY (01/31/2022) Anatomical Region Laterality Modality Breast Mammography us Steff Cruz NP IMG MAMMO PROCEDURES Sarah l Result from Last 3 Months or Most Recently Relevant to Health Maintenance Insurance MEDICARE [facility] INS [facility] MEDICARE [employer] [place] MEDICARE [employer] [place] Advance Directives For more information, please contact: [phone] * Full Code (Latest Code Status on [...] 9:46 AM 05/30/2021 9:46 AM Care Teams Head Banquet Waiter/Waitress Relationship Specialty Start Date End Date Cha Leon MD [address] [place] [id number] PCP - General 06/27/16
--- OUTSIDE RECORDS SUMMARY | 2024-11-05 07:32 | XMS_ITS | Clinical Summary ---
Author Organization [facility] Address [address] [place] [address] Care Team Providers Care Manager Facility Name Role Phone Cha Leon MD Primary Care Provider [phone] Allergies Active Allergy Reactions Criticality Noted Date [...] BY MOUTH EVERY DAY 90 tablet 2 Active losartan (COZAAR) 50 mg tablet TAKE 1 TABLET BY MOUTH EVERY DAY 90 tablet 2 024 Active aspirin 81 mg enteric coated tablet TAKE 1 TABLET BY MOUTH EVERY DAY 120 tablet 1 Active metoprolol XL (TOPROL-XL) 25 mg extended [...] artery disease) 12/24/2021 Coronary artery disease involving [place] heart 0 12/19/2021 Overview (12/19/2021): Added automatically from request for surgery [id number] Osteoarthritis 11/18/2021 Hemorrhoids 02/12/2021 Overview (02/12/2021): Added automatically from request for surgery [id number] Grade III hemorrhoids 12/31/2020 Assessment & Plan (11/18/2021 2:20 PM CDT): anusol HC supps and return prn Assessment & Plan (02/12/2021 12:52 PM CDT): III roids IRC series Assessment & Plan (12/31/2020 2:22 PM CDT): Hi fibver diet with miralax daily and return prn. Hx of colonic polyp 11/08/2018 Overview (11/08/2018): Added automatically from request for surgery [id number] Osteoporosis 07/27/2013 Overview (07/23/2016): Osteoporosis Encounters Date Type Department Care Team Description 10/10/2024 Results Follow-Up [facility] Medical Group Gastroenterology at [address] [place] [address] Mary Fishman MD Surgical pathology 09/28/2024 9:49 AM CDT Anesthesia Event [address] [address] Tony Chavarria MD 09/28/2024 9:30 AM CDT - 09/28/2024 10:00 AM CDT Surgery [address] [address] Mary Fishman MD COLON BIOPSY 09/28/2024 8:15 AM CDT - 09/28/2024 11:05 AM CDT Hospital Encounter [address] [address] Mary Fishman MD Personal history of colonic polyps; Encounter for screening colonoscopy; History of colonic polyps Discharge Disposition: Discharge to home or self care 08/19/[address] 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 Gender Identity Not on file Sexual [...] Scan 02/05/2024 02/04/2022, 08/05/2017, 08/16/2015 Influenza Vaccine (#1) 2024 9, 03/16/2018, 02/02/2018, Additional history exists Fall Risk [...] Screening Discontinued Medical Devices Implanted Type Area Pilot Steam Yacht Device Identifier Shelf Expiration Date Model / Serial / Lot [employer] Carm[employer] Synergy Xd 3mm 48mm System Coronary Stent Everolimus [id number] - S0 - [id number] Implanted:Qty: 1 on 12/24/2021 by Zach Botello MD at [facility] Stent [employer] 10/02/2023 [id number] 300 / 0 / [id number] [employer] Synergy Xd Monorail 3.5mm 38mm 144cm Delivery System 1 Access [id number] - S0 - [id number] Implanted:Qty: 1 on 12/24/2021 by Zach Botello MD at [facility] Stent [employer] 06/10/2023 [id number] 350 / 0 / [id number] Description:RCA [employer] Synergy Xd Monorail 3mm 16mm 144cm Delivery System 1 Access Port [id number] - S0 - [id number] Implanted:Qty: 1 on 12/24/2021 by Zcah Botello MD at [facility] Stent [employer] 06/24/2023 [id number] 300 / 0 / [id number] [employer] Synergy Xd 3mm 48mm System Coronary Stent Everolimus [id number] - S0 - [id number] Implanted:Qty: 1 on 12/24/2021 by Zach Botello MD at [facility] Stent [employer] 10/02/2023 [id number] 300 / 0 / [id number] [employer] Stent Drug Eluting S Megatron Us Mr 3.66k34qb [id number] - S0 - [id number] Implanted:Qty: 1 on 12/24/2021 by Zach Botello MD at [facility] [employer] Carmen 05/08/2022 [id number] 350 / 0 / [id number] Procedures Procedure Name Priority Date/Time Associated Diagnosis [...] gastric) 09/28/2024 10:07 AM CDT Narrative PATHOLOGY [facility] - 09/29/2024 10:23 AM CDT EPIC results best viewed via link to PDF [facility] Department of Pathology [address] [place] [address] Note to Patients: This report may contain [...] Final Report Patient Name: SHARON DOMINGO Address: [address] [place] [address] Gender: F : 1945 (Age: 78) Service: Gastro Location: [facility] Hospital #: [id number] Patient Type: [facility] Taken: 09/28/2024 Received: 09/28/2024 Accessioned: 09/28/2024 Reported: [...] a single formalin filled container labeled SHARON KABAUHR and sigmoid polyp x2. It is 3 [...] determined by the Surgical Pathology Department at as part of an ongoing quality assurance inspector program and in compliance with federally mandated [...] characteristics determined by the Surgical Pathology Department [facility]. It has not been cleared or approved by the U. S. Food and Drug Administration. Note for decalcified specimens: This assay has not been validated on decalcified tissues. Results should be interpreted with caution given the possibility of false negativity on decalcified specimens Mary Fishman MD LAB PATHOLOGY ORDERABLES F inal Result PATHOLOGY [facility]) [address] [place] [address] * Colonoscopy (09/28/2024 8:20 AM CDT) Anatomical Region Laterality Modality Other Narrative Procedure Note Mary Fishman MD - 09/28/2024 8:20 AM CDT Digestive [facility] Patient Name: Sharon Domingo Procedure Date: 09/28/2024 8:20 AM Date of : 1945 Admit Type: Outpatient Age: 78 Gender: Female Attending MD: Mary Fishman M.D. Room: [facility] ENDOSCOPY ROOM 1 Note Status: Finalized [...] passed under direct vision. The Pediatric Colonoscope PCF-[id number] was introduced through the anus and advanced [...] 8:20 AM Procedure Code(s): --- Professional --- 66038, Colonoscopy, flexible; with biopsy, single or multiple Diagnosis Code(s): --- Professional --- Z86.010, Personal history of colonic polyps K64.8, Other hemorrhoids D12.5, Benign neoplasm of sigmoid colon CPT copyright 2020 [employer]. All rights reserved. The codes documented in this report are preliminary and upon commission sales associate reviewmay be revised to meet current compliance [...] F with given history of screening. Postmenopausal Pilot Steam Yacht/Model: DigePrint Discovery SL (S/N 12994) CLINICAL INFORMATION: Current height: 63 inches Maximum [...] Gurwinder Madison M.D. MF: CECI Report ID: [id number] Reading Location: [id number] Procedure Note Gurwinder Madison MD - 02/05/2022 EXAM DESCRIPTION: DEXA AXIAL SKELETON BONE DENSITY 1 OR MORE SITES REASON FOR STUDY: 76 y/o year old F with given history ofscreening. Postmenopausal Pilot Steam Yacht/Model: DigePrint Discovery SL (S/N [id number]) CLINICAL INFORMATION: Current height: 63 inches Maximum [...] Gurwinder Madison M.D. MF: CECI Report ID: [id number] Reading Location: [place] [address] Steff Cruz NP IMG DXA PROCEDURES Final Result * MAMMOGRAPHY (01/31/2022) Anatomical Region Laterality Modality Breast Mammography Steff Cruz NP IMG MAMMO PROCEDURES Sarah l Result from Last 3 Months or Most Recently Relevant [place] [phone] MEDICARE [facility] MEDICARE [employer] [address] [place] [id number] MEDICARE [employer] [place] Advance Directives For more information, please contact: [phone] * Full Code (Latest Code Status on [...] 9:46 AM 05/30/2021 9:46 AM Care Teams Manager Facility Relationship Specialty Start Date End Date Cha Leon MD [address] [place] [address] PCP - General 06/27/16
== END 2024-11-05 07:29 | disposition home or self-care (01) ==
LOC: CHSIMG 07:30
PROVIDERS: PCP Internal Medicine; Visit Provider Internal Medicine
DX: M54.50 Low back pain, unspecified (principal); M48.56XA Collapsed vertebra, not elsewhere classified, lumbar region, initial encounter for fracture; M43.06 Spondylolysis, lumbar region
CPT/HCPCS: 72148

== ENCOUNTER 2024-12-20 08:40 | Outpatient (CLI) | payer MEDICARE, OTHER, SELFPAY ==
--- NOTE | ~2024-12-20 | XR_ITS ---
XR lumbar spine 2-3V 12/20/2024 08:54 Indication: Fracture Procedure: 3 views lumbar spine Comparison: MRI dated 11/05/2024 and lumbar spine dated 10/31/2024 Findings: There is sclerosis at the inferior endplate of L5, consistent with healing fracture. No significant loss of vertebral body height. There is multilevel disc narrowing and facet hypertrophy. There is grade 1 degenerative spondylolisthesis at L5-S1 secondary to facet hypertrophy. There is scoliosis. Impression: 1: Healing fracture inferior endplate of L5 without significant loss of vertebral body height. 2: Severe lumbar spondylosis. Reviewed, dictated and finalized at location O. Impression: 1: Healing fracture inferior endplate of L5 without significant loss of vertebr al body height. 2: Severe lumbar spondylosis.
--- OUTSIDE RECORDS SUMMARY | 2024-12-20 08:44 | XMS_ITS | Clinical Summary ---
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
--- OUTSIDE RECORDS SUMMARY | 2024-12-20 08:44 | XMS_ITS | Encounter Summary ---
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 Gender Identity Not on file Sexual Orientation Not on file documented as of this encounter Plan of Treatment Not on file documented as of this encounter Procedures Procedure Name Priority Date/Time Associated Diagnosis Comments SCAN - LABS 03/07/2024 documented in this encounter Results * SCAN - LABS (03/07/2024) us Provider Scanning Final Result documented in this encounter Visit Diagnoses Not on filedocumented in this encounter Care Teams Appliance Service Technician Relationship Specialty Start Date End Date Cha Leon MD [address] [place] [id number] PCP - General 06/27/16 documented as of this encounter
--- OUTSIDE RECORDS SUMMARY | 2024-12-20 08:44 | XMS_ITS | Encounter Summary ---
Author Organization [facility] Healthcare Address [address] [place] [address] Care Team Providers Care Channel Rebuilder Name Role Phone Cha Leon MD Primary Care Provider + [phone] Encounter Details Date Type Department Care Team (Late st Contact Info) Description 03/10/[address] 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 Gender Identity Not on file Sexual Orientation Not on file documented as of this encounter Plan of Treatment Not on file documented as of this encounter Procedures Procedure Name Priority Date/Time Associated Diagnosis Comments SCAN - RADIOLOGY/IMAGING 03/10/2024 documented in this encounter Results * SCAN - RADIOLOGY/IMAGING (03/10/2024) Anatomical Region Laterality Modality Other us Provider Scanning Final Result documented in this encounter Visit Diagnoses Not on filedocumented in this encounter Care Teams Channel Rebuilder Relationship Specialty Start Date End Date Cha Leon MD [address] [place], [place] [id number] PCP - General 06/27/16 documented as of this encounter
--- OUTSIDE RECORDS SUMMARY | 2024-12-20 08:45 | XMS_ITS | Clinical Summary ---
Author Organization [facility] Address [address] [place] [address] Care Team Providers Care Putty And Patch Worker Name Role Phone Cha Leon MD Primary Care Provider + [phone] Allergies Active Allergy Reactions Criticality Noted Date [...] Additional Information Patient not taking.Reported on 06/21/2024 losartan (COZAAR) 50 mg tablet TAKE 1 [...] EVERY DAY 90 tablet 2 025 Active atorvastatin (LIPITOR) 80 mg tablet TAKE 1 TABLET BY MOUTH EVERY DAY 90 tablet 2 025 Active atorvastatin (LIPITOR) 80 mg tablet TAKE 1 TABLET BY MOUTH EVERY DAY 90 tablet 2 024 2024 Discontinued Active Problems Problem Noted Date Diagnosed Date Personal history of colonic polyps 12/03/2023 Encounter for screening colonoscopy 12/03/2023 Rectal bleeding 04/01/2022 History of coronary artery stent placement 01/09 Ischemic cardiomyopathy 01/09/2022 CAD (coronary artery disease) 12/24/2021 Coronary artery disease involving nisqually heart 0 12/19/2021 Overview (12/19/2021): Added automatically from request for surgery [id number] Osteoarthritis 11/18/2021 Hemorrhoids 02/12/2021 Overview (02/12/2021): Added automatically from request for surgery [id number] Grade III hemorrhoids 12/31/2020 Assessment & Plan (11/18/2021 2:20 PM CDT): anusol HC supps and return prn Assessment & Plan (02/12/2021 12:52 PM CDT): III roids IRC series Assessment & Plan (12/31/2020 2:22 PM CDT): Hi fibver diet with miralax daily and return prn. Hx of colonic polyp 11/08/2018 Overview (11/08/2018): Added automatically from request for surgery [id number] Osteoporosis 07/27/2013 Overview (07/23/2016): Osteoporosis Encounters Date Type Department Care Team Description 10/10/2024 Results Follow-Up [facility] Gastroenterology at [address] [place] [address] Mary Fishman MD Surgical pathology 09/28/2024 9:49 AM CDT Anesthesia Event [address] [address] Tony Chavarria MD 09/28/2024 9:30 AM CDT - 09/28/2024 10:00 AM CDT Surgery [address] [address] Mary Fishman MD COLON BIOPSY 09/28/2024 8:15 AM CDT - 09/28/2024 11:05 AM CDT Hospital Encounter [address] [address] Mary Fishman MD Personal history of colonic polyps; Encounter for screening colonoscopy; History of colonic polyps Discharge Disposition: Discharge to home or self care from Last 3 Months Immunizations Immunization Administration [...] History Relation Name Comments Cancer Father Prem Trettenero Throat cancer Father Prem Sow Throat Can [...] 2 Paternal Grandfather Frank Sow Paternal Grandmother vE Sow Alive Social History Tobacco Use Types [...] on file 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 Gender Identity Not on file Sexual Orientation Not on file Obstetrics History Para Term AB IAB SAB Ectopic Multiple Livin g Live Births 4 3 3 1 1 3 3 Date Outcome GA Total Labor Labor/2nd/3rd Weight Sex Type Anes PTL Radha A1 A5 Name Clin 1968 Term M Vag-S pont Living 1969 SAB 1970 Term F Vag-S pont Living 1978 Term F Living Last Filed Vital Signs [...] Screening Discontinued Medical Devices Implanted Type Area Research Assoc Device Identifier Shelf Expiration Date Model / Serial / Lot [employer] Synergy Xd 3mm 48mm System Coronary Stent Everolimus [id number] - S0 - [id number] Implanted:Qty: 1 on 12/24/2021 by Zach Botello MD at [facility] Stent [employer] 10/02/2023 [id number] 300 / 0 / [id number] [employer] Synergy Xd Monorail 3.5mm 38mm 144cm Delivery System 1 Access [id number] - S0 - [id number] Implanted:Qty: 1 on 12/24/2021 by Zach Botello MD at [facility] Stent [employer] 06/10/2023 [id number] 350 / 0 / [id number] Description:RCA [employer] Synergy Xd Monorail 3mm 16mm 144cm Delivery System 1 Access Port [id number] - S0 - [id number] Implanted:Qty: 1 on 12/24/2021 by Zach Botello MD at [facility] Stent [employer] 06/24/2023 [id number] 300 / 0 / [id number] [employer] Synergy Xd 3mm 48mm System Coronary Stent Everolimus [id number] - S0 - [id number] Implanted:Qty: 1 on 12/24/2021 by Zach Botello MD at [facility] Stent [employer] 10/02/2023 [id number] 300 / 0 / [id number] [employer] Stent Drug Eluting S Megatron Us Mr 3.82r78hv [id number] - S0 - [id number] Implanted:Qty: 1 on 12/24/2021 by Zach Botello MD at [facility] Stent [employer] 05/08/2022 [id number] 350 / 0 / [id number] Procedures Procedure Name Priority Date/Time Associated Diagnosis [...] gastric) 09/28/2024 10:07 AM CDT Narrative PATHOLOGY [facility] - 09/29/2024 10:23 AM CDT EPIC results best viewed via link to PDF [facility] Department of Pathology [address] [place] [address] Note to Patients: This report may contain [...] Final Report Patient Name: SHARON DOMINGO Address: [address] [place] [address] Gender: F : 1945 (Age: 78) Service: Gastro Location: [facility] Hospital #: [id number] Patient Type: [facility] Taken: 09/28/2024 Received: 09/28/2024 Accessioned: [...] determined by the Surgical Pathology Department at [facility] as part of an ongoing research associate quality control qc program and in compliance with federally mandated [...] characteristics determined by the Surgical Pathology Department [facility]. It has not been cleared or approved by the U. S. Food and Drug Administration. Note for decalcified specimens: This assay has not been validated on decalcified tissues. Results should be interpreted with caution given the possibility of false negativity on decalcified specimens us Mary Fishman MD LAB PATHOLOGY ORDERABLES F inal Result PATHOLOGY [facility] [address] [place] [address] * Colonoscopy (09/28/2024 8:20 AM CDT) Anatomical Region Laterality Modality Other Narrative Procedure Note Mary Fishman MD - 09/28/2024 8:20 AM CDT [facility] Patient Name: Sharon Domingo Procedure Date: 09/28/2024 8:20 AM Date of : 1945 Admit Type: Outpatient Age: 78 Gender: Female Attending MD: Mary Fishman M.D. Room: [facility] ENDOSCOPY ROOM 1 Note Status: Finalized [...] passed under direct vision. The Pediatric Colonoscope [id number] was introduced through the anus and advanced [...] 8:20 AM Procedure Code(s): --- Professional --- 06969, Colonoscopy, flexible; with biopsy, single or multiple Diagnosis Code(s): --- Professional --- Z86.010, Personal history of colonic polyps K64.8, Other hemorrhoids D12.5, Benign neoplasm of sigmoid colon CPT copyright 2020 [employer]. All rights reserved. The codes documented in this report are preliminary and upon computer typesetter keyliner reviewmay be revised to meet current compliance requirements. Recognized by the [employer] for promoting quality [...] F with given history of screening. Postmenopausal Research Assoc/Model: Simpleshow SL (S/N 72229) CLINICAL INFORMATION: Current height: 63 inches Maximum [...] Gurwinder Madison M.D. MF: CECI Report ID: [id number] Reading Location: [place] [address] Procedure Note Gurwinder Madison MD - 02/05/2022 EXAM DESCRIPTION: DEXA AXIAL SKELETON BONE DENSITY 1 OR MORE SITES REASON FOR STUDY: 76 y/o year old F with given history ofscreening. Postmenopausal Research Assoc/Model: Simpleshow SL (S/N 96897) CLINICAL INFORMATION: Current height: 63 inches Maximum [...] Gurwinder Madison M.D. MF: CECI Report ID: [id number] Reading Location: [place] [address] Steff Cruz NP IMG DXA PROCEDURES Final Result * MAMMOGRAPHY (01/31/2022) Anatomical Region Laterality Modality Breast Mammography Steff Cruz NP IMG MAMMO PROCEDURES Sarah l Result from Last 3 Months or Most Recently Relevant to Health Maintenance Insurance MEDICARE [facility] MEDICARE [facility] MEDICARE [facility] Advance Directives For more information, please contact: [phone] * Full Code (Latest Code Status on [...] 9:46 AM 05/30/2021 9:46 AM Care Teams Putty And Patch Worker Relationship Specialty Start Date End Date Cha Leon MD [address] [place] [address] PCP - General 06/27/16
--- OUTSIDE RECORDS SUMMARY | 2024-12-20 08:45 | XMS_ITS | Encounter Summary ---
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 positive COVID result and will fax to [phone] for it to be scanned under the media tab. 12.24.21 [facility] COVID test was pre-procedural. Routine retesting not recommended for 120 days or expiration date of 03.10.22 without an infectious disease physician consult. Zane Cullen 12.24.21 Added based on recent COVID infection. 11/10/2021 12/24/2021 03/10/2022 3:[address] COVID: Recovered Comment:Added based on recent COVID infection. 12/24/2021 03/12/2022 03/24/2022 3:[address] documented as of this encounter Care Teams Filling Carrier Relationship Specialty Start Date End Date Cha Leon MD [address] [place] [address] PCP - General 06/27/16 documented as of this encounter
== END 2024-12-20 08:41 | disposition home or self-care (01) ==
LOC: CHSIMG 08:41
PROVIDERS: PCP Internal Medicine; Visit Provider Internal Medicine
DX: S32.059D Unspecified fracture of fifth lumbar vertebra, subsequent encounter for fracture with routine healing (principal); M47.816 Spondylosis without myelopathy or radiculopathy, lumbar region
CPT/HCPCS: 72100